=== PATIENT | male | born 1955 | race Caucasian/White ===

== ENCOUNTER 2020-01-21 09:04 | Outpatient (REF) | payer MEDICARE, MEDICAID, SELFPAY ==
[2020-01-21 11:15] LABS: MANUAL DIFF FLAG NO
[2020-01-21 11:31] LABS: Basophils Absolute Auto 0.1 X10*3/uL (0.0-0.2); Basophils Percent Auto 0.7 % (0-2); Eosinophils Absolute Auto 0.1 X10*3/uL (0.0-0.4); Eosinophils Percent Auto 1.8 % (0-4); Hematocrit 44.5 % (42-52); Hemoglobin 15.1 g/dl (14.0-18.0); Imm Gran Abs Auto 0.02 X10*3/uL (0.00-0.03); Imm Gran Pct Auto 0.3 % (0.0-0.4); Lymphocytes Absolute Auto 2.4 X10*3/uL (1.2-4.9); Mean Corpuscular HGB Conc 33.9 g/dl (31.0-36.0); Mean Corpuscular Hemoglobin 30.2 pg (27.0-33.0); Mean Platelet Volume 9.8 fL (9.4-12.4); Monocytes Absolute Auto 0.6 X10*3/uL (0.1-1.2); Monocytes Percent Auto 8.3 % (2-11); Neutrophils Absolute Auto 3.9 X10*3/uL (2.0-8.3); Neutrophils Percent Auto 54.9 % (45-73); Platelet Count 244 X10*3/uL (160-400); Red Cell Distribution Width 13.6 % (11.0-16.0); White Blood Count 7.1 X10*3/uL (4.8-10.8)
[2020-01-21 12:23] LABS: TSH reflex Free T4 0.93 mIU/mL (0.32-4.0); Vitamin D 25-OH Total 20.5 ng/mL (>30)
[2020-01-21 12:24] LABS: Alanine Aminotransferase 14 U/L (0-40); Albumin Level 4.3 g/dL (3.5-5.0); Alkaline Phosphatase 75 U/L (39-117); Anion Gap 14 (12-20); Aspartate Amino Transferase 14 U/L (5-37); Bilirubin Total 0.8 mg/dL (0.0-1.0); Blood Urea Nitrogen 14 mg/dL (9-16); Calcium 8.8 mg/dL (8.4-10.2); Carbon Dioxide 22 mmol/L (22-29); Chloride 109 mmol/L (96-108); Cholesterol 228 mg/dL; Estimated Glomerular Filt Rate > 60; Glucose Fasting 100 mg/dL (60-99); HDL Cholesterol 45 mg/dL; LDL Cholesterol Calculated 163 mg/dl; Potassium 4.4 mmol/l (3.3-5.1); Sodium 141 mmol/L (135-145); Total Protein 7.2 g/dL (6.5-8.0); Triglycerides 102 mg/dL
[2020-01-21 12:34] LABS: Folate 10.9 ng/mL (> or = 4.0); Vitamin B12 366 pg/mL (200-900)
== END 2020-01-21 09:05 | disposition home or self-care (01) ==
LOC: HO.HMGCLDS 09:04
PROVIDERS: PCP Internal Medicine; Visit Provider Internal Medicine
DX: E66.3 Overweight (principal); F41.8 Other specified anxiety disorders; Z86.19 Personal history of other infectious and parasitic diseases; Z72.0 Tobacco use
CPT/HCPCS: 36415; 80053; 80061; 82306; 82607; 82746; 84443; 85025

== ENCOUNTER 2020-04-18 09:56 | Outpatient (REF) | payer MEDICARE, MEDICAID, SELFPAY ==
[2020-04-18 12:09] LABS: Cholesterol 203 mg/dL; HDL Cholesterol 39 mg/dL; LDL Cholesterol Calculated 150 mg/dl; Triglycerides 71 mg/dL
[2020-04-18 12:17] LABS: Vitamin D 25-OH Total 56.2 ng/mL (>30)
== END 2020-04-18 09:57 | disposition home or self-care (01) ==
LOC: HO.HMGCLDS 09:56
PROVIDERS: PCP Internal Medicine; Visit Provider Internal Medicine
DX: E55.9 Vitamin D deficiency, unspecified (principal); E78.5 Hyperlipidemia, unspecified
CPT/HCPCS: 36415; 80061; 82306

== ENCOUNTER 2020-08-03 07:36 | Outpatient (REF) | payer MEDICARE, MEDICAID, SELFPAY ==
[2020-08-03 12:36] LABS: PSA,Total (Free>4and<10) 0.87 ng/mL (0.00-4.00); Vitamin D 25-OH Total 41.2 ng/mL (>30)
[2020-08-03 12:42] LABS: Cholesterol 228 mg/dL; Glucose Fasting 103 mg/dL (60-99); HDL Cholesterol 45 mg/dL; LDL Cholesterol Calculated 163 mg/dl; Triglycerides 102 mg/dL
== END 2020-08-03 07:37 | disposition home or self-care (01) ==
LOC: HO.HMGCLDS 07:36
PROVIDERS: PCP Internal Medicine; Visit Provider Internal Medicine
DX: Z12.5 Encounter for screening for malignant neoplasm of prostate (principal); E78.5 Hyperlipidemia, unspecified; R73.01 Impaired fasting glucose; Z86.39 Personal history of other endocrine, nutritional and metabolic disease
CPT/HCPCS: 36415; 80061; 82306; 82947; 84153

== ENCOUNTER 2021-02-15 09:09 | Outpatient (REF) | payer MEDICARE, MEDICAID, SELFPAY ==
[2021-02-15 11:59] LABS: Cholesterol 260 mg/dL; Triglycerides 111 mg/dL
[2021-02-15 12:38] LABS: Glucose Fasting 112 mg/dL (60-99); HDL Cholesterol 50 mg/dL; LDL Cholesterol Calculated 188 mg/dl
== END 2021-02-15 09:10 | disposition home or self-care (01) ==
LOC: HO.HMGCLDS 09:09
PROVIDERS: PCP Internal Medicine; Visit Provider Internal Medicine
DX: E78.5 Hyperlipidemia, unspecified (principal); R73.01 Impaired fasting glucose
CPT/HCPCS: 36415; 80061; 82947

== ENCOUNTER 2021-05-16 10:14 | Outpatient (REF) | payer MEDICARE, MEDICAID, SELFPAY ==
[2021-05-16 12:08] LABS: Estimated Average Glucose 105 mg/dL; Hemoglobin A1c % 5.3 %
[2021-05-16 12:37] LABS: Alanine Aminotransferase 17 U/L (0-40); Aspartate Amino Transferase 15 U/L (5-37); Cholesterol 174 mg/dL; HDL Cholesterol 43 mg/dL; LDL Cholesterol Calculated 114 mg/dl; Triglycerides 85 mg/dL
== END 2021-05-16 10:15 | disposition home or self-care (01) ==
LOC: HO.HMGCLDS 10:14
PROVIDERS: PCP Internal Medicine; Visit Provider Internal Medicine
DX: E78.5 Hyperlipidemia, unspecified (principal); R73.01 Impaired fasting glucose
CPT/HCPCS: 36415; 80061; 83036; 84450; 84460

== ENCOUNTER 2021-10-18 08:38 | Outpatient (REF) | payer MEDICARE, MEDICAID, SELFPAY ==
[2021-10-18 11:37] LABS: Estimated Average Glucose 108 mg/dL; Hemoglobin A1c % 5.4 %
[2021-10-18 12:10] LABS: Alanine Aminotransferase 19 U/L (0-40); Anion Gap 14 (12-20); Aspartate Amino Transferase 15 U/L (5-37); Blood Urea Nitrogen 9 mg/dL (9-16); Calcium 9.2 mg/dL (8.4-10.2); Carbon Dioxide 22 mmol/L (22-29); Chloride 109 mmol/L (96-108); Cholesterol 152 mg/dL; Estimated Glomerular Filt Rate > 60; Glucose Fasting 107 mg/dL (60-99); HDL Cholesterol 47 mg/dL; LDL Cholesterol Calculated 92 mg/dl; Potassium 4.2 mmol/L (3.3-5.1); Sodium 141 mmol/L (135-145); Triglycerides 66 mg/dL
== END 2021-10-18 08:39 | disposition home or self-care (01) ==
LOC: HO.HMGCLDS 08:38
PROVIDERS: PCP Internal Medicine; Visit Provider Internal Medicine
DX: E78.5 Hyperlipidemia, unspecified (principal); R73.01 Impaired fasting glucose
CPT/HCPCS: 36415; 80048; 80061; 83036; 84450; 84460

== ENCOUNTER 2021-10-26 13:00 | Outpatient (RCR) | payer MEDICARE, MEDICAID, SELFPAY | END 2021-11-02 13:43 | disposition home or self-care (01) | LOC: HO.PTCHIC 13:00 | PROVIDERS: PCP Internal Medicine; Visit Provider Student in an Organized Health Care Education/Training Program | DX: M54.16 Radiculopathy, lumbar region (principal) | CPT/HCPCS: 97014; 97110; 97112; 97140; 97162 ==

== ENCOUNTER 2022-04-10 08:58 | Outpatient (REF) | payer MEDICARE, MEDICAID, SELFPAY ==
[2022-04-10 11:53] LABS: Alanine Aminotransferase 22 U/L (0-40); Aspartate Amino Transferase 20 U/L (5-37); Cholesterol 164 mg/dL; HDL Cholesterol 42 mg/dL; LDL Cholesterol Calculated 100 mg/dl; Triglycerides 111 mg/dL
== END 2022-04-10 08:59 | disposition home or self-care (01) ==
LOC: HO.HMGCLDS 08:58
PROVIDERS: PCP Internal Medicine; Visit Provider Internal Medicine
DX: E78.5 Hyperlipidemia, unspecified (principal)
CPT/HCPCS: 36415; 80061; 84450; 84460

== ENCOUNTER 2022-10-15 08:30 | Outpatient (REF) | payer MEDICARE, MEDICAID, SELFPAY ==
[2022-10-15 11:32] LABS: Estimated Average Glucose 103 mg/dL; Hemoglobin A1c % 5.2 %
[2022-10-15 12:15] LABS: Alanine Aminotransferase 18 U/L (0-40); Aspartate Amino Transferase 18 U/L (5-37); Cholesterol 140 mg/dL; Glucose Fasting 108 mg/dL (60-99); HDL Cholesterol 39 mg/dL; LDL Cholesterol Calculated 80 mg/dl; Triglycerides 107 mg/dL
[2022-10-15 12:20] LABS: Vitamin D 25-OH Total 32.1 ng/mL (>30)
== END 2022-10-15 08:31 | disposition home or self-care (01) ==
LOC: HO.HMGCLDS 08:30
PROVIDERS: PCP Internal Medicine; Visit Provider Internal Medicine
DX: E55.9 Vitamin D deficiency, unspecified (principal); E66.3 Overweight; E78.5 Hyperlipidemia, unspecified; R73.01 Impaired fasting glucose; Z72.0 Tobacco use
CPT/HCPCS: 36415; 80061; 82306; 82947; 83036; 84450; 84460

== ENCOUNTER 2022-10-17 13:40 | Outpatient (AMB) | payer MEDICARE, MEDICAID, SELFPAY ==
--- NOTE | 2022-10-17 13:59 | MHC.PC.OV ---
Vital Signs 10/17/22 14:01 Height 6 ft 1 in Weight 225 lb BMI 29.7 BP 130/80 Blood Pressure Location Lt brachial Position Sitting Pulse 72 Pulse Source Pulse Oximeter Pulse Oximetry (%) 98 Oxygen Delivery Method Room Air Intake Visit Reasons: PE Intake Note: Patient here for Physical exam. He would like to address nails coming off nail bed and toe fungus. Allergies No Known Allergies Allergy (Verified 10/17/22 14:33) Medication List - Last Reconciled 10/17/22 by Maryellen Gregg MD gabapentin 600 mg PO TID risperidone 0 mg PO rosuvastatin 5 mg PO DAILY venlafaxine ER 37.5 mg PO BEDTIME venlafaxine ER 75 mg PO QAM Tobacco use date assessed: 04/15/22 Fall risk assessment: No Falls in past year Last assessed Fall Risk: 10/17/22 Dental Screening Dental Screen Date: 10/17/22 Did you have a dental visit in the last 12 months?: Yes Did you have a dental problem in the last 6 months where you did not have access to dental care?: No Was dental information given to patient?: Patient has dentist HPI PE HPI Details 67-year-old male with dyslipidemia, impaired fasting glucose, lumbar degenerative disc disease, depression with anxiety and current cigarette smoker, here today for physical exam. Unmotivated to quit at present time. Had recent fasting labs done which showed elevated fasting glucose at 108 mg/dL, and normal fasting lipids and vitamin-D level. He is currently being followed for his chronic low back pain with sciatica and degenerative disc disease in lumbar area at [facility] and is currently being seen at [facility] for his depression and anxiety. Continues to smoke cigarettes, with no desire to quit at present time. Complains of yellowish, thick nail beds on 4th and 5th digits and right thumb on the right, and some beginning discoloration and brittle of bilateral big toenails. [facility] Medical History (Updated 10/17/22 @ 14:54 by Maryellen Gregg MD) Chronic low back pain with sciatica Degenerative disc disease, lumbar Depression with anxiety Dyslipidemia Hx of hepatitis C Hx of type B viral hepatitis Impaired fasting glucose Nail discoloration Not ready to quit smoking Overweight Vitamin D deficiency Surgical History H/O lumbar discectomy Hx of colonoscopy Family History Father No problems noted. Mother No problems noted. Brother No problems noted. Son No problems noted. Sister Substance use disorder Mental health disorder Sister No problems noted. Social History Housing: House Alcohol intake: former Patient Tobacco Use Status: Current everyday Tobacco user Cigarette Packs Per Day: 1 e-Cigarette/Vaping Use: Never Used service: No Current occupational status: employed Cognitive needs: No Hearing needs: No Vision needs: Yes Questionnaire PHQ-9 Over the last 2 weeks, how often have you been bothered by any of the following problems? 1. Little interest or pleasure in doing things: not at all 2. Feeling down, depressed, or hopeless: not at all 3. Trouble falling or staying asleep, or sleeping too much: not at all 4. Feeling tired or having little energy: several days 5. Poor appetite or overeating: not at all 6. Feeling bad about yourself - or that you are a failure or have let yourself or your family down: not at all 7. Trouble concentrating on things, such as reading the newspaper or watching television: not at all 8. Moving or speaking so slowly that other people could have noticed. Or the opposite - being so fidgety or restless that you have been moving around a lot more than usual: not at all 9. Thoughts that you would be better off or of hurting yourself in some way: not at all Total score: 1 Depression Screening Interpretation: Positive (Goes to [facility]) Depression Screening Follow-up: Existing condition, In treatment and Community Mental Health Worker F/U 83893 - PHQ-9 Billing: Yes Source: Developed by Drs. Emanuel Mcmahon, Mirna Floyd, Florin Cervantes and colleagues, with an educational london from [employer]. Thrive Questionnaire Date Thrive assessed: 10/17/22 I am a: Patient What is your living situation today?: I have a steady place to live Within the past 12 months, did the food you bought not last and you didn't have the money to get more?: Never true Within the past 12 months, did you worry whether your food would run out before you got money to buy more?: Never true Do you have trouble paying for medicines?: No Do you have trouble getting transportation to medical appointments?: No Do you have trouble paying your heating and electricity bill?: No Do you have trouble taking care of your child, family member or friend?: No Do you have trouble with day-to-day activities such as bathing, preparing meals, shopping, managing finances, etc.?: No Are you currently unemployed and looking for a job?: No Are you interested in more education?: No AUDIT C Alcohol Use Questionnaire (AUDIT-C) 1. How often do you have a drink containing alcohol?: Never 3. How often do you have six or more drinks on one occasion?: Never Total Score: 0 DAVID-7 AMB Questionnaire DAVID-7 Date DAVID - 7 assessed: 10/17/22 Feeling nervous, anxious, or on edge: 0 = Not at all Not being able to stop or control worryin = Not at all Worrying too much about different things: 0 = Not at all Trouble relaxin = Not at all Being so restless that it is hard to sit still: 0 = Not at all Becoming easily annoyed or irritable: 0 = Not at all Feeling afraid as if something awful might happen: 0 = Not at all Total DAVID-7 score (0-4 normal; 5-9 mild; 10-14 moderate; 15-21 severe): 0 Source: Developed by Drs. Emanuel Mcmahon, Mirna Floyd, Florin Cervantes and colleagues, with an educational london from [employer]. DAVID-7 Assessment Billing DAVID-7 Assessment Tool: DAVID-7 Assessment 62527 Review of Systems Const Denies body aches, Denies fatigue, Denies fever(s), Denies headache(s) and Denies weakness Eyes Details: Currently sees Dr. Baker Denies change in vision ENT Reports Normal hearing present, Denies dizziness, Denies headache(s), Denies nasal congestion, Denies nasal discharge and Denies sore throat Card Denies chest pain, Denies lightheadedness, Denies palpitations and Denies dyspnea Resp Denies chest congestion, Denies cough, Denies excessive phlegm production, Denies dyspnea and Denies wheezing GI Denies abdominal pain, Denies melena, Denies hematochezia, Denies change in bowel habits and Denies heartburn Denies difficulty urinating, Denies erectile dysfunction, Denies genital lesions, Denies dysuria, Denies urinary frequency and Denies urinary urgency Musc Details: Currently being seen at [facility], currently on gabapentin Reports back pain (Now currently being seen by [facility], and started on gabapentin) Skin/Breast Denies lesions and Denies rash Neuro Reports Normal hearing present, Denies dizziness, Denies headache(s), Denies Sensory deficit (Neuro) and Denies weakness Psych Details: Currently being followed at [facility] Reports no additional complaints Endo Denies fatigue, Denies polydipsia, Denies polyuria and Denies palpitations Gama/Lymph Denies easy bleeding and Denies easy bruising Aller/Immun Denies wheezing Physical exam (Primary Care) Vital Signs: Last Vital Signs Pulse 72 10/17/22 14:01 BP 130/80 10/17/22 14:01 Pulse Ox 98 10/17/22 14:01 Oxygen Delivery Method Room Air 10/17/22 14:01 BMI result Body Mass Index 29.7 Tobacco/Smoking Status: Tobacco use Status Tobacco use date assessed 04/15/22 10/17/22 14:04 Patient Tobacco Use Status Current everyday Tobacco 10/17/22 14:04 e-Cigarette/Vaping Use Never Used 10/17/22 14:04 Are you ready to quit: No Tobacco cessation counseling provided: Yes PHQ-9: PHQ-9 Score PHQ-9: Total score 1 10/17/22 17:42 Depression Screening Interpretation: Positive (Goes to [facility]) Depression Screening Follow-up: Existing condition, In treatment and Community Mental Health Worker F/U Thrive Assessment: Date of Thrive Assessment Date Thrive assessed 10/17/22 10/17/22 17:42 Const General: cooperative, comfortable, no acute distress and alert Nutritional Appearance: overweight Orientation/consciousness: patient oriented x3 HENMT Head: Yes normocephalic Ears: hearing grossly normal bilaterally, external ears normal, TM's normal bilaterally and EAC's normal General nose exam: Normal external nose present Face and sinus: Yes face symmetric Mouth: Normal oral and palatal mucosa present and moist mucous membranes Eyes General: appearance normal, both eyes and all related structures Neck Neck: Yes full ROM, Yes no lymphadenopathy and Yes supple Chest Chest palpation & inspection: normal inspection of the chest and normal palpation of entire chest wall Resp Effort & Inspection: normal respiratory effort and able to speak in complete sentences Auscultation: clear to auscultation bilaterally Cardio Palpation: normal PMI Rate: regular rate Rhythm: regular rhythm Heart sounds: S1 normal heart sound present and S2 normal heart sound present GI Palpation (GI): Soft to palpation, nontender, no guarding, no masses and Other GI palpation findings present (Diastasis recti present) Auscultation: normal bowel sounds General: Yes no CVA tenderness Male General Exam: Yes normal external exam Penis: normal penis Back/Spine/Pelvis Back: no CVA tenderness Thoracic/Lumbar Spine: Lasegue's sign negative and paraspinal muscle tenderness bilaterally in the lower lumbar Skin General skin exam: no rashes or lesions noted Nails: yellow and thickened (Right thumb, and right 3rd and 4th finger nails and bilateral big toes) Neuro General: patient oriented x3, gait normal, moves all extremities, Normal light touch and pain sensation, no focal motor deficits and CN's II-XI intact bilaterally Cranial nerves: Yes Normal hearing present Gait exam (Neuro): Normal gait present Sensory Exam: No Sensory deficit (Neuro) Extrem General: Yes full ROM, Yes no joint enlargement, Yes no pedal edema, Yes no calf tenderness and Yes normal gait Psych Appearance: grossly normal and well kempt Mental Status: mental status grossly normal Speech and movement: Normal speech and movement present Affect: normal affect Attitude: cooperative Thought process: Normal thought process present Thought content: Normal thought content present Results Reviewed Results Reviewed: RUN: 10/17/22 1433 PAGE 1 [facility] [address] [place] [id number] Mining Teacher: Daniel Munoz M.D. Specimen Inquiry Name: Emanuel Mills Age/Sex: 67/M : 1955 Unit#: [id number] Attend Dr: Maryellen Gregg MD Re10/15/22 Status: DEP REF Location: [facility] Disch: SPEC : [id number] ALVERTO: 10/15/22 STATUS: COMP REQ : [id number] RECD: 10/15/22-1112 [facility] DR: Maryellen Gregg MD COMP: 10/15/22 ENTERED: 10/15/[address] [facility] [address]: ORDERED: Glu Fasting, AST, ALT, Lipid Panel, Vitamin D 25-OH Test Result Flag Reference Site FBS 108 H 60-99 mg/dL A fasting glucose from 100-125 mg/dl is considered impaired (pre-diabetes). AST (GOT) 18 5-37 U/L ALT (GPT) 18 0-40 U/L Triglyceride 107 mg/dL Desirable Triglyceride: less than 150 mg/dL Borderline High Triglyceride 150-199 mg/dL High Triglyceride: 200-499 mg/dL Very High Triglyceride: greater than or equal to 5OO mg/dL Chol 140 mg/dL Desirable Cholesterol: less than 200 mg/dL Borderline High Cholesterol: 200-239 mg/dL High Cholesterol: greater than 239 mg/dL LDL Calculated 80 mg/dl Desirable LDL: less than 100 mg/dL Near Optimal/Above Optimal LDL: 110-129 mg/dL Borderline High LDL: 130-159 mg/dL High LDL: 160-189 mg/dL Very High LDL: greater than or equal to 190 mg/dL HDL 39 mg/dL Desirable HDL: greater than 40 mg/dL Note: This HDL assay may give artificially low results in patients with liver disease. Vit D 25-OH Tot 32.1 >30 ng/mL Health Based Reference Values* < 20 ng/mL Deficient 20-30 ng/mL Insufficient > 30 ng/mL Sufficient Laboratory Tests 10/15/22 08:37 Estimat Average Glucose 103 Hemoglobin A1c % 5.2 Assessment and Plan Assessment & Plan (1) Annual visit for general adult medical examination with abnormal findings: Code(s): Z00.01 - Encounter for general adult medical examination with abnormal findings Plan: Reviewed recent fasting lab results with patient.. Recommended dental visit every 6 months and regular eye exams, at least every 2 years, sees Dr. Baker. Take adequate calcium in diet and vitamin-D 3 at 2000 IU per cap once a day, in addition to weight-bearing exercises to help maintain good muscle tone and weight control. Instructed to do self-testicular exam to check for any mass. Referred to GI his colon cancer screening. Reminded to get his COVID booster, and reminded to get his yearly flu shot, up-to-date with Tdap and Prevnar 20, recommend to get his shingles vaccine, given at the pharmacy (2) Nail discoloration: Code(s): L60.8 - Other nail disorders Plan: Referred to dermatology (3) Nail deformity: Code(s): L60.8 - Other nail disorders Plan: Rheumatology consult ordered (4) Colon cancer screening: Code(s): Z12.11 - Encounter for screening for malignant neoplasm of colon Plan: Referred to H him see GI for screening colonoscopy (5) Impaired fasting glucose: Code(s): R73.01 - Impaired fasting glucose Plan: Your fasting blood sugars elevated above 100 mg/dL. Impaired glucose metabolism O2 at risk for developing diabetes mellitus type 2, as well as heart attack and stroke later on. Lifestyle changes at just weight loss, healthy eating habits, and regular exercise are important, and can prevent the progression to diabetes (6) Chronic low back pain with sciatica: Code(s): M54.40 - Lumbago with sciatica, unspecified side; G89.29 - Other chronic pain Plan: Followed at [facility] currently on gabapentin 600 mg 3 times a day (7) Dyslipidemia: Code(s): E78.5 - Hyperlipidemia, unspecified Plan: Reviewed recent fasting lipid profile with patient with levels within normal limits . Continue with rosuvastatin 5 mg daily , in addition to adherence to low-cholesterol diet and regular exercise, at least 30 minutes 3 to 4 times a week. Advised patient to make healthy food choices, eat more fruits, vegetables, whole grains, wild caught fish and low-fat dairy. Limit amount of meat and fried or fatty food products, as well as processed foods and fast foods. Follow-up scheduled with repeat fasting lipid panel in months. (8) Not ready to quit smoking: Code(s): Z72.0 - Tobacco use Plan: Patient strongly advised to stop smoking, as smoking damages blood vessels, degenerative of joints and spine, damage to lungs and heart., predisposes to developing certain cancers like lung, breast, bladder, colon. Recommended to try decreasing cigarette use by 1-2 cigarettes a day. Advised to monitor what triggers are for smoking so that this can be discussed on the next office visit. We can discuss different options to quit smoking when ready. (9) Depression with anxiety: Comment: Currently being seen by [facility] Code(s): F41.8 - Other specified anxiety disorders Plan: Currently on venlafaxine ER 37.5 mg at bedtime and then 75 mg in a.m., and risperidone, currently being followed at [facility] Orders: Orders Alanine Aminotransferase 6 Months E78.5 - Hyperlipidemia, unspecified, R73.01 - Impaired fasting glucose Aspartate Amino Transferase 6 Months E78.5 - Hyperlipidemia, unspecified, R73.01 - Impaired fasting glucose Glucose Fasting 6 Months E78.5 - Hyperlipidemia, unspecified, R73.01 - Impaired fasting glucose Hemoglobin A1c 6 Months E78.5 - Hyperlipidemia, unspecified, R73.01 - Impaired fasting glucose Lipid Panel 6 Months E78.5 - Hyperlipidemia, unspecified, R73.01 - Impaired fasting glucose Referrals Dermatology Referral L60.8 - Other nail disorders Gastroenterology Referral Z12.11 - Encounter for screening for malignant neoplasm of colon Coding Level of Care Code Est Pt Prev Care >65y(26228) Diagnoses Annual visit for general adult medical examination with abnormal findings Z00.01 Nail discoloration L60.8 Nail deformity L60.8 Colon cancer screening Z12.11 Impaired fasting glucose R73.01 Chronic low back pain with sciatica M54.40; G89.29 Dyslipidemia E78.5 Not ready to quit smoking Z72.0 Depression with anxiety F41.8 Additional Codes DAVID-7 Assessment Billing - DAVID-7 Assessment Tool: DAVID-7 Assessment 06279 ([id number])
[2022-10-17 14:01] VITALS: BP 130/80; PULSE 72; O2SAT 98; BMI 29.7
== END 2022-10-17 15:13 | disposition home or self-care (01) ==
LOC: HO.HMGC 13:40
PROVIDERS: PCP Internal Medicine; Visit Provider Internal Medicine
DX: Z00.01 Encounter for general adult medical examination with abnormal findings (principal); F41.8 Other specified anxiety disorders; Z12.11 Encounter for screening for malignant neoplasm of colon; L60.8 Other nail disorders; R73.01 Impaired fasting glucose; M54.40 Lumbago with sciatica, unspecified side; G89.29 Other chronic pain; E78.5 Hyperlipidemia, unspecified; Z72.0 Tobacco use
CPT/HCPCS: 99397

== ENCOUNTER 2022-12-12 09:48 | Outpatient (AMB) | payer BC, MEDICAID, SELFPAY ==
--- NOTE | 2022-12-12 09:56 | MHC.OFFVIS ---
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 male here today for pre colonoscopy screening.? Patient was sent to us by his PCP.? Patient had colonoscopy in the past, over 10 years ago. As far as patient remember it was normal. No polyps found.? Patient denies any gastrointestinal symptoms in the past or at present.? Denies any personal or family history of gastrointestinal disease, colon polyps, or cancer.? Denies history of difficulty with sedation or anesthesia in the past.? Negative for history of sleep apnea.? Denies any history of cardiac, renal, pulmonary, or hepatic disease.?? History of hep C treated with interferon in 1997. No history of infectious? diseases like hepatitis A, B, HIV or tuberculosis.? Patient is not on any anticoagulation therapy. [facility] Medical History Nail discoloration Chronic low back pain with sciatica Hx of type B viral hepatitis Impaired fasting glucose Dyslipidemia Vitamin D deficiency Degenerative disc disease, lumbar Hx of hepatitis C Overweight Not ready to quit smoking Depression with anxiety Surgical History Hx of colonoscopy H/O lumbar discectomy Family History Father No problems noted. Mother No problems noted. Brother No problems noted. Son No problems noted. Sister Substance use disorder Mental health disorder Sister No problems noted. Social History Housing: House Alcohol intake: former Patient Tobacco Use Status: Current everyday Tobacco user Cigarette Packs Per Day: 1 e-Cigarette/Vaping Use: Never Used service: No Current occupational status: employed Cognitive needs: No Hearing needs: No Vision needs: Yes Review of Systems Const Denies weight gain and Denies weight loss ENT Reports no additional complaints, Denies dysphagia and Denies odynophagia Card Reports no additional complaints Resp Reports no additional complaints GI Denies abdominal pain, Denies belching, Denies melena, Denies bloating, Denies change in bowel habits, Denies dysphagia, Denies excessive flatus, Denies dyspepsia, Denies heartburn, Denies diarrhea, Denies loose stools, Denies nausea, Denies odynophagia and Denies vomiting Reports no additional complaints Musc Reports no additional complaints Neuro Reports no additional complaints Psych Reports no additional complaints Endo Reports no additional complaints Physical Exam Vital Signs: Last Vital Signs Pulse 84 12/12/22 09:57 BP 140/82 H 12/12/22 09:57 BMI result Body Mass Index 29.1 Const General: healthy appearing, no acute distress and well developed Nutritional Appearance: obese Orientation/consciousness: patient oriented x3 HEENT Head: Yes normal to inspection, Yes normocephalic and Yes atraumatic Face and sinus: Yes normal facial exam Mouth: Normal oral and palatal mucosa present Throat: Yes posterior oropharynx normal, Yes tonsils normal and Yes uvula midline Eyes General: appearance normal, both eyes and all related structures Neck Neck: Yes normal visual inspection, Yes full ROM and Yes trachea midline Thyroid: Thyroid normal Resp Effort & Inspection: normal respiratory effort, able to speak in complete sentences, no tracheal deviation and symmetric chest movement Auscultation: clear to auscultation bilaterally Cardio Rate: regular rate Heart sounds: S1 normal heart sound present and S2 normal heart sound present GI Inspection: Yes normal to inspection, No distended and Yes obesity Palpation (GI): Soft to palpation, not firm, nontender and No hepatosplenomegaly present Auscultation: normal bowel sounds General: Yes no CVA tenderness Back/Spine/Pelvis Back: no CVA tenderness Skin General skin exam: elasticity normal, turgor normal and dry skin Neuro General: patient oriented x3 Psych Appearance: grossly normal Mental Status: mental status grossly normal Assessment & Plan Assessment & Plan (1) Colon cancer screening: Code(s): Z12.11 - Encounter for screening for malignant neoplasm of colon Plan: Patient denies any GI, cardiac or respiratory symptoms.? Denies any issues with anesthesia in the past.? Denies any history of sleep apnea.? History of hep C treated with interferon in 1997.? Not on any anticoagulation therapy.? No family or personal history of colon cancer or polyps.? Patient denies melena, hematochezia, unintentional weight loss or ribbon like stools.? Discussed at length the pre-procedure,? prep, diet & medications as well as what to expect prior, during and after the procedure.?? Stressed the importance of good bowel prep. ?Recommended the use of Vaseline or Calmoseptine OTC & baby wipes with bowel movements to promote comfort.? ?Patient verbalizes understanding and agrees to plan of care.? He was given the opportunity to ask questions and all questions answered.? We will see him after the procedure.? Orders: Orders Complete Blood Count no Diff Today K21.9 - Gastro-esophageal reflux disease without esophagitis Medications: New polyethylene glycol 3350 (Miralax) As directed by gastroenterology department at [facility] 238 grams PO ONCE 238 grams 0RF Z12.11 - Encounter for screening for malignant neoplasm of colon bisacodyl (Dulcolax (bisacodyl)) take 4 tabs at noon the day before your colonoscopy 20 mg (4 x 5 mg) PO ONCE 1 day 4 tabs 0RF Z12.11 - Encounter for screening for malignant neoplasm of colon Coding Level of Care Code New Pt Level 3 (97336) Diagnoses Colon cancer screening Z12.11 Time Spent (min) 40 Comment 30 minutes spent with patient and additional 10 minutes spent reviewing his records
[2022-12-12 09:57] VITALS: BP 140/82; PULSE 84; BMI 29.1
== END 2022-12-12 11:45 | disposition home or self-care (01) ==
PROVIDERS: PCP Internal Medicine; Visit Provider Nurse Practitioner Family
DX: Z01.818 Encounter for other preprocedural examination (principal); Z12.11 Encounter for screening for malignant neoplasm of colon
CPT/HCPCS: S0285

== ENCOUNTER 2022-12-12 09:48 | Outpatient (REF) | payer MEDICARE, SELFPAY ==
[2022-12-12 11:53] LABS: Hematocrit 43.8 % (42.0-52.0); Hemoglobin 14.7 g/dl (14.0-18.0); Mean Corpuscular HGB Conc 33.6 g/dl (31.0-36.0); Mean Corpuscular Hemoglobin 29.9 pg (27.0-33.0); Mean Corpuscular Volume 89.2 fL (80.0-98.0); Mean Platelet Volume 10.4 fL (9.4-12.4); Platelet Count 262 X10*3/uL (160-400); Red Blood Count 4.91 X10*6/uL (4.60-5.80); Red Cell Distribution Width 13.7 % (11.0-16.0); White Blood Count 5.7 X10*3/uL (4.8-10.8)
== END 2022-12-12 09:49 | disposition home or self-care (01) ==
LOC: HO.LAB 09:48
PROVIDERS: PCP Internal Medicine; Visit Provider Nurse Practitioner Family
DX: Z01.818 Encounter for other preprocedural examination (principal); K21.9 Gastro-esophageal reflux disease without esophagitis; Z86.19 Personal history of other infectious and parasitic diseases
CPT/HCPCS: 36415; 85027

== ENCOUNTER 2023-04-22 06:08 | Outpatient (REF) | payer MEDICARE, SELFPAY ==
[2023-04-22 11:42] LABS: Estimated Average Glucose 103 mg/dL; Hemoglobin A1c % 5.2 % (<6.0)
[2023-04-22 12:06] LABS: Alanine Aminotransferase 18 U/L (0-40); Aspartate Amino Transferase 15 U/L (5-37); Cholesterol 161 mg/dL (<200); Glucose Fasting 102 mg/dL (60-99); HDL Cholesterol 56 mg/dL (>40)
[2023-04-22 12:45] LABS: LDL Cholesterol Calculated 92 mg/dL (<100); Triglycerides 66 mg/dL (<150)
== END 2023-04-22 06:09 | disposition home or self-care (01) ==
LOC: HO.HMGCLDS 06:08
PROVIDERS: PCP Internal Medicine; Visit Provider Internal Medicine
DX: R73.01 Impaired fasting glucose (principal); E78.5 Hyperlipidemia, unspecified
CPT/HCPCS: 36415; 80061; 82947; 83036; 84450; 84460

== ENCOUNTER 2023-04-24 10:25 | Outpatient (AMB) | payer MEDICARE, SELFPAY ==
--- NOTE | 2023-04-24 10:31 | A.OFFPC_ITS ---
Vital Signs 04/24/23 10:32 Height 6 ft 1 in Weight 221 lb BMI 29.2 BP 112/72 Blood Pressure Location Rt brachial Position Sitting Pulse 79 Pulse Source Pulse Oximeter Pulse Oximetry (%) 97 Oxygen Delivery Method Room Air Intake Visit Reasons: 6 mo. f/u labs Intake Note: Pt is here today for his 6 months f/u labs Allergies No Known Allergies Allergy (Verified 04/24/23 11:01) Medication List - Last Reconciled 04/24/23 by Maryellen Gregg MD bisacodyl (Dulcolax (bisacodyl)) 20 mg (4 x 5 mg) PO ONCE 1 day gabapentin 600 mg PO TID polyethylene glycol 3350 (Miralax) 238 grams PO ONCE risperidone 0 mg PO rosuvastatin 5 mg PO DAILY venlafaxine ER 37.5 mg PO BEDTIME venlafaxine ER 75 mg PO QAM Tobacco use date assessed: 04/24/23 Fall risk assessment: No Falls in past year Last assessed Fall Risk: 04/24/23 Dental Screening Dental Screen Date: 04/24/23 Did you have a dental visit in the last 12 months?: Yes Did you have a dental problem in the last 6 months where you did not have access to dental care?: Yes Was dental information given to patient?: Patient has dentist HPI 6 mo. f/u labs HPI Details 67-year-old male with history of depress ion with anxiety followed at [facility], here today for follow-up on his hyperlipidemia and prediabetes. He has been compliant with taking his medications, and has been more active, exercises regularly and has been following recommended diet. Recent fasting labs showed mildly elevated fasting glucose with normal lipids. He also has been having intermittent episodes of urinary frequency and urgency, with frequently getting up at night to use the bathroom at least twice . Denies any accompanying penile discharge, no dysuria no back or abdominal pain reported [facility] Medical History (Updated 04/24/23 @ 11:06 by Maryellen Gregg MD) Urinary incontinence, urge Nail discoloration Chronic low back pain with sciatica Hx of type B viral hepatitis Impaired fasting glucose Dyslipidemia Vitamin D deficiency Degenerative disc disease, lumbar Hx of hepatitis C Overweight Not ready to quit smoking Depression with anxiety Surgical History Hx of colonoscopy H/O lumbar discectomy Family History Father No problems noted. Mother No problems noted. Brother No problems noted. Son No problems noted. Sister Substance use disorder Mental health disorder Sister No problems noted. Social History Housing: House Alcohol intake: former Patient Tobacco Use Status: Current everyday Tobacco user Cigarette Packs Per Day: 1 e-Cigarette/Vaping Use: Never Used service: No Current occupational status: employed Cognitive needs: No Hearing needs: No Vision needs: Yes Questionnaire PHQ-9 Over the last 2 weeks, how often have you been bothered by any of the following problems? 1. Little interest or pleasure in doing things: not at all 2. Feeling down, depressed, or hopeless: several days 3. Trouble falling or staying asleep, or sleeping too much: not at all 4. Feeling tired or having little energy: several days 5. Poor appetite or overeating: several days 6. Feeling bad about yourself - or that you are a failure or have let yourself or your family down: not at all 7. Trouble concentrating on things, such as reading the newspaper or watching television: not at all 8. Moving or speaking so slowly that other people could have noticed. Or the opposite - being so fidgety or restless that you have been moving around a lot more than usual: not at all 9. Thoughts that you would be better off or of hurting yourself in some way: not at all Total score: 3 Depression Screening Interpretation: Positive (Goes to [facility]) Depression Screening Follow-up: Existing condition, In treatment and Community Mental Health Worker F/U Depression Screening Done: Yes Source: Developed by Drs. Emanuel Mcmahon, Mirna Floyd, Florin Cervantes and colleagues, with an educational london from [employer]. Thrive Questionnaire Date Thrive assessed: 04/24/23 I am a: Patient What is your living situation today?: I have a steady place to live Within the past 12 months, did the food you bought not last and you didn't have the money to get more?: Never true Within the past 12 months, did you worry whether your food would run out before you got money to buy more?: Never true Do you have trouble paying for medicines?: No Do you have trouble getting transportation to medical appointments?: No Do you have trouble paying your heating and electricity bill?: No Do you have trouble taking care of your child, family member or friend?: No Do you have trouble with day-to-day activities such as bathing, preparing meals, shopping, managing finances, etc.?: No Are you currently unemployed and looking for a job?: No Are you interested in more education?: No THRIVE Score: 0 AUDIT C Alcohol Use Questionnaire (AUDIT-C) 1. How often do you have a drink containing alcohol?: Never Total Score: 0 DAVID-7 AMB Questionnaire DAVID-7 Date DAVID - 7 assessed: 04/24/23 Feeling nervous, anxious, or on edge: 1 = Several days Not being able to stop or control worryin = Several days Worrying too much about different things: 1 = Several days Trouble relaxin = Not at all Being so restless that it is hard to sit still: 0 = Not at all Becoming easily annoyed or irritable: 0 = Not at all Feeling afraid as if something awful might happen: 0 = Not at all Total DAVID-7 score (0-4 normal; 5-9 mild; 10-14 moderate; 15-21 severe): 3 Source: Developed by Drs. Emanuel Mcmahon, Mirna Floyd, Florin Cervantes and colleagues, with an educational london from [employer]. Review of Systems Const Denies body aches, Denies fatigue, Denies fever(s), Denies headache(s) and Denies weakness Eyes Details: Currently sees Dr. Baker Denies change in vision ENT Reports Normal hearing present, Denies dizziness, Denies headache(s), Denies nasal congestion, Denies nasal discharge and Denies sore throat Card Denies chest pain, Denies lightheadedness, Denies palpitations and Denies dyspnea Resp Denies chest congestion, Denies cough, Denies excessive phlegm production, Denies dyspnea and Denies wheezing GI Denies abdominal pain, Denies melena, Denies hematochezia, Denies change in bowel habits and Denies heartburn Denies difficulty urinating, Denies erectile dysfunction, Denies genital lesions and Denies dysuria Musc Details: Currently being seen at [facility], currently on gabapentin Reports back pain (Now currently being seen by [facility], and started on gabapentin) Skin/Breast Denies lesions and Denies rash Neuro Reports Normal hearing present, Denies dizziness, Denies headache(s), Denies Sensory deficit (Neuro) and Denies weakness Psych Details: Currently being followed at [facility] Reports no additional complaints Endo Denies fatigue, Denies polydipsia, Denies polyuria and Denies palpitations Gama/Lymph Denies easy bleeding and Denies easy bruising Aller/Immun Denies wheezing Physical exam (Primary Care) Vital Signs: Last Vital Signs Pulse 79 04/24/23 10:32 BP 112/72 04/24/23 10:32 Pulse Ox 97 04/24/23 10:32 Oxygen Delivery Method Room Air 04/24/23 10:32 BMI result Body Mass Index 29.2 Tobacco/Smoking Status: Tobacco use Status Tobacco use date assessed 04/24/23 04/24/23 10:36 Patient Tobacco Use Status Current everyday Tobacco 04/24/23 10:32 e-Cigarette/Vaping Use Never Used 04/24/23 10:32 Are you ready to quit: No Tobacco cessation counseling provided: Yes PHQ-9: PHQ-9 Score PHQ-9: Total score 3 04/24/23 11:11 Depression Screening Interpretation: Positive (Goes to [facility]) Depression Screening Follow-up: Existing condition, In treatment and Community Mental Health Worker F/U Thrive Assessment: Date of Thrive Assessment Date Thrive assessed 04/24/23 04/24/23 11:11 Const General: cooperative, comfortable, no acute distress and alert Nutritional Appearance: overweight Orientation/consciousness: patient oriented x3 HENMT Head: Yes normocephalic Ears: hearing grossly normal bilaterally, external ears normal, TM's normal bilaterally and EAC's normal General nose exam: Normal external nose present Face and sinus: Yes face symmetric Mouth: Normal oral and palatal mucosa present and moist mucous membranes Eyes General: appearance normal, both eyes and all related structures Neck Neck: Yes full ROM, Yes no lymphadenopathy and Yes supple Chest Chest palpation & inspection: normal inspection of the chest and normal palpation of entire chest wall Resp Effort & Inspection: normal respiratory effort and able to speak in complete sentences Auscultation: clear to auscultation bilaterally Cardio Palpation: normal PMI Rate: regular rate Rhythm: regular rhythm Heart sounds: S1 normal heart sound present and S2 normal heart sound present GI Palpation (GI): Soft to palpation, nontender, no guarding, no masses and Other GI palpation findings present (Diastasis recti present) Auscultation: normal bowel sounds General: Yes no CVA tenderness Back/Spine/Pelvis Back: no CVA tenderness Thoracic/Lumbar Spine: Lasegue's sign negative and paraspinal muscle tenderness bilaterally in the lower lumbar Neuro General: patient oriented x3, gait normal, moves all extremities, Normal light touch and pain sensation, no focal motor deficits and CN's II-XI intact bilaterally Cranial nerves: Yes Normal hearing present Gait exam (Neuro): Normal gait present Sensory Exam: No Sensory deficit (Neuro) Extrem General: Yes full ROM, Yes no joint enlargement, Yes no pedal edema, Yes no calf tenderness and Yes normal gait Psych Appearance: grossly normal and well kempt Mental Status: mental status grossly normal Speech and movement: Normal speech and movement present Affect: normal affect Attitude: cooperative Thought process: Normal thought process present Thought content: Normal thought content present Results Reviewed Results Reviewed: RUN: 04/24/23 1053 PAGE 1 [facility] [address] [place] [id number] Hydrology Technician: Daniel Munoz M.D. Specimen Inquiry Name: Emanuel Mills Age/Sex: 67/M : 1955 Unit#: [id number] Attend Dr: Maryellen Gregg MD Re04/22/23 Status: DEP REF Location: [facility] Disch: SPEC : [id number] ALVERTO: 04/22/23 STATUS: COMP REQ : [id number] RECD: 04/22/23-[address]: Maryellen Gregg MD COMP: 04/22/231206 ENTERED: 04/22/[address] [facility] [address]: ORDERED: Glu Fasting, AST, ALT, Lipid Panel Test Result Flag Reference FBS 102 H 60-99 mg/dL A fasting glucose from 100-125 mg/dl is considered impaired (pre-diabetes). AST (GOT) 15 5-37 U/L ALT (GPT) 18 0-40 U/L Triglyceride 66 <150 mg/dL Desirable Triglyceride: less than 150 mg/dL Borderline High Triglyceride 150-199 mg/dL High Triglyceride: 200-499 mg/dL Very High Triglyceride: greater than or equal to 5OO mg/dL Cholesterol 161 <200 mg/dL Desirable Cholesterol: less than 200 mg/dL Borderline High Cholesterol: 200-239 mg/dL High Cholesterol: greater than 239 mg/dL LDL Calculated 92 <100 mg/dL Desirable LDL: less than 100 mg/dL Near Optimal/Above Optimal LDL: 110-129 mg/dL Borderline High LDL: 130-159 mg/dL High LDL: 160-189 mg/dL Very High LDL: greater than or equal to 190 mg/dL HDL 56 >40 mg/dL Desirable HDL: greater than 40 mg/dL Note: This HDL assay may give artificially low results in patients with liver disease. Assessment and Plan Assessment & Plan (1) Urinary incontinence, urge: Code(s): N39.41 - Urge incontinence Plan: Ordered total PSA and basic metabolic panel and a urinalysis with refill lacks urine culture and microbiology (2) Urinary frequency: Code(s): R35.0 - Frequency of micturition Plan: Ordered total PSA and basic metabolic panel and a urinalysis with refill lacks urine culture and microbiology, with results still pending (3) Dyslipidemia: Code(s): E78.5 - Hyperlipidemia, unspecified Plan: Reviewed recent fasting lipid profile with patient with levels within normal limits . Continue taking rosuvastatin 5 mg once a day , in addition to adherence to low-cholesterol diet and regular exercise, at least 30 minutes 3 to 4 times a week. Advised patient to make healthy food choices, eat more fruits, vegetables, whole grains, wild caught fish and low-fat dairy. Limit amount of meat and fried or fatty food products, as well as processed foods and fast foods. Follow-up scheduled with repeat fasting lipid panel in 6 months. (4) Impaired fasting glucose: Code(s): R73.01 - Impaired fasting glucose Plan: Your fasting blood sugars elevated above 100 mg/dL. Impaired glucose metabolism O2 at risk for developing diabetes mellitus type 2, as well as heart attack and stroke later on. Lifestyle changes at just weight loss, healthy eating habits, and regular exercise are important, and can prevent the progression to diabetes (5) Depression with anxiety: Comment: Currently being seen by Aline Ying Code(s): F41.8 - Other specified anxiety disorders Plan: Followed at [facility], stable and controlled on venlafaxine ER and risperidone Orders: Orders PSA,Total (Free>4and<10) Today N39.41 - Urge incontinence, R35.0 - Frequency of micturition Basic Metabolic Panel Fasting Today N39.41 - Urge incontinence, R35.0 - Freq uency of micturition UA CC w/rflx Micro + Cult Today N39.41 - Urge incontinence, R35.0 - Frequency of micturition Coding Level of Care Code Est Pt Level 3 (42376) Diagnoses Urinary incontinence, urge N39.41 Urinary frequency R35.0 Dyslipidemia E78.5 Impaired fasting glucose R73.01 Depression with anxiety F41.8
[2023-04-24 10:32] VITALS: BP 112/72; PULSE 79; O2SAT 97; BMI 29.2
== END 2023-04-24 11:58 | disposition home or self-care (01) ==
PROVIDERS: PCP Internal Medicine; Visit Provider Internal Medicine
DX: N39.41 Urge incontinence (principal); R35.0 Frequency of micturition; E78.5 Hyperlipidemia, unspecified; R73.01 Impaired fasting glucose; F41.8 Other specified anxiety disorders
CPT/HCPCS: 99213

== ENCOUNTER 2023-04-24 11:10 | Outpatient (REF) | payer MEDICARE, SELFPAY ==
[2023-04-24 13:36] LABS: Anion Gap 13 (12-20); Blood Urea Nitrogen 12 mg/dL (9-16); Calcium 9.9 mg/dL (8.4-10.2); Carbon Dioxide 26 mmol/L (22-29); Chloride 107 mmol/L (96-108); Estimated Glomerular Filt Rate > 60; Glucose Fasting 103 mg/dL (60-99); Potassium 4.8 mmol/L (3.3-5.1); Sodium 141 mmol/L (135-145)
[2023-04-24 13:54] LABS: PSA,Total (Free>4and<10) 0.84 ng/mL (0.00-4.00)
[2023-04-24 16:01] LABS: Appearance Urine Cloudy; Color Urine Yellow; Glucose Urine UA Negative (Negative); Leukocyte Esterase Urine Negative (Negative); Nitrite Urine Negative (Negative); PH 5.5 (5.0-9.0); Urine Blood Negative (Negative); Urine Ketones Negative (Negative); Urine Protein Negative (Neg-Trace)
== END 2023-04-24 11:11 | disposition home or self-care (01) ==
LOC: HO.HMGCLDS 11:10
PROVIDERS: PCP Internal Medicine; Visit Provider Internal Medicine
DX: Z12.5 Encounter for screening for malignant neoplasm of prostate (principal); N39.41 Urge incontinence; R35.0 Frequency of micturition
CPT/HCPCS: 36415; 80048; 81003; 84153

== ENCOUNTER 2023-05-13 13:55 | Outpatient (AMB) | payer MEDICARE, SELFPAY ==
[2023-05-13 13:59] VITALS: BP 124/85; PULSE 100; BMI 28.6
--- NOTE | 2023-05-13 13:59 | A.OFFVIS_ITS ---
Intake Vital Signs 05/13/23 13:59 Height 6 ft 1 in Weight 216 lb 14.958 oz BMI 28.6 BP 124/85 Blood Pressure Location Lt brachial Position Sitting Pulse 100 Pulse Source Pulse Oximeter Intake Visit Reasons: patient wants appt to discuss prep Intake Note: Pt presents to the office today to rediscuss colo prep. Pt states he attempted to take the miralax and dulcolax for his prior colo but he states he threw up everything that he drank and was really bloated and was sick for the night and the enxt day after taking the prep. Allergies No Known Allergies Allergy (Verified 05/13/23 14:01) HPI patient wants appt to discuss prep HPI Details LAST VISIT Colon cancer screening Patient denies any GI, cardiac or respiratory symptoms.? Denies any issues with anesthesia in the past.? Denies any history of sleep apnea.? History of hep C treated with interferon in 1997.? Not on any anticoagulation therapy.? No family or personal history of colon cancer or polyps.? Patient denies melena, hematochezia, unintentional weight loss or ribbon like stools.? Discussed at length the pre-procedure,? prep, diet & medications as well as what to expect prior, during and after the procedure.?? Stressed the importance of good bowel prep. ?Recommended the use of Vaseline or Calmoseptine OTC & baby wipes with bowel movements to promote comfort.? ?Patient verbalizes understanding and agrees to plan of care.? He was given the opportunity to ask questions and all questions answered.? We will see him after the procedure.? Plan Orders Orders Complete Blood Count no Diff Today K21.9 Medications New polyethylene glycol 3350 (Miralax) As directed by gastroenterology department at [facility] 238 grams PO ONCE 238 grams 0RF Z12.11 bisacodyl (Dulcolax (bisacodyl)) take 4 tabs at noon the day before your colonoscopy 20 mg (4 x 5 mg) PO ONCE 1 day 4 tabs 0R F Z12.11 TODAY'S VISIT Patient is here today for requested visit. Patient was scheduled for colonoscopy back in April. While he was doing his prep day before procedure he tolerate Dulcolax well, however when he started drinking MiraLax he felt very nauseous and bloated to the point that he finished all of his drink and began throwing up in the middle of the night. Patient had cancel his procedure. Procedure is rescheduled for July. Patient admits now that he is constipated. Does not empty his bowels every day. Sometimes no BM for 2 days. Patient denies melena, hematochezia, unintentional weight loss or ribbon like stools. Patient denies any dyspepsia, dysphagia or odynophagia. No change since last visit. Patient continues to have no respiratory or cardiac symptoms. Not taking any anticoagulation medication. [facility] Medical History Urinary incontinence, urge Nail discoloration Chronic low back pain with sciatica Hx of type B viral hepatitis Impaired fasting glucose Dyslipidemia Vitamin D deficiency Degenerative disc disease, lumbar Hx of hepatitis C Overweight Not ready to quit smoking Depression with anxiety Surgical History Hx of colonoscopy H/O lumbar discectomy Family History Father No problems noted. Mother No problems noted. Brother No problems noted. Son No problems noted. Sister Substance use disorder Mental health disorder Sister No problems noted. Social History Housing: House Alcohol intake: former Patient Tobacco Use Status: Current everyday Tobacco user Cigarette Packs Per Day: 1 e-Cigarette/Vaping Use: Never Used service: No Current occupational status: employed Cognitive needs: No Hearing needs: No Vision needs: Yes Review of Systems Const Denies weight gain and Denies weight loss ENT Reports no additional complaints, Denies dysphagia and Denies odynophagia Card Reports no additional complaints Resp Reports no additional complaints GI Denies abdominal pain, Denies belching, Denies melena, Denies bloating, Reports constipation, Denies dysphagia, Denies excessive flatus, Denies dyspepsia, Denies heartburn, Denies diarrhea, Denies loose stools, Denies nausea, Denies odynophagia and Denies vomiting Reports no additional complaints Musc Reports no additional complaints Neuro Reports no additional complaints Psych Reports no additional complaints Endo Reports no additional complaints Physical Exam Vital Signs: Last Vital Signs Pulse 100 05/13/23 13:59 BP 124/85 05/13/23 13:59 BMI result Body Mass Index 28.6 Const General: healthy appearing, no acute distress and well developed Nutritional Appearance: well nourished and obese Orientation/consciousness: patient oriented x3 Resp Effort & Inspection: normal respiratory effort, able to speak in complete sentences, no tracheal deviation and symmetric chest movement Auscultation: clear to auscultation bilaterally Cardio Rate: regular rate GI Inspection: Yes normal to inspection, No distended and Yes obesity Palpation (GI): Soft to palpation, not firm, nontender and No hepatosplenomegaly present Auscultation: normal bowel sounds General: Yes no CVA tenderness Back/Spine/Pelvis Back: no CVA tenderness Skin General skin exam: elasticity normal, turgor normal and dry skin Neuro General: patient oriented x3 Psych Appearance: grossly normal Mental Status: mental status grossly normal Assessment & Plan Assessment & Plan (1) Colon cancer screening: Code(s): Z12.11 - Encounter for screening for malignant neoplasm of colon (2) Constipation: Code(s): K59.00 - Constipation, unspecified Qualifiers: Constipation type: slow transit constipation Qualified Code(s): K59.01 - Slow transit constipation Plan What to expect before during and after procedure discussed with patient. Patient will start taking Dulcolax tablets every day so he can emptying his bowels daily. My suspicion is that he was constipated and backed up when he was doing his prep and unable to handle all the fluids. He will still do the split MiraLax prep and makes it in vitamin water versus orange juice like he did last time. I will see patient after the procedure, sooner on as needed basis. Patient is agreeable to this plan and verbalizes understanding of instructions. He was given the opportunity to ask questions and all questions answered. Thank you for allowing me to participate in his care Medications: New bisacodyl (Dulcolax (bisacodyl)) 10 mg (2 x 5 mg) PO BEDTIME 180 tabs 4RF polyethylene glycol 3350 (Miralax) As directed by gastroenterology department at [facility] 238 grams PO ONCE 238 grams 0RF Z12.11 - Encounter for screening for malignant neoplasm of colon Coding Level of Care Code Est Pt Level 3 (76380) Diagnoses Colon cancer screening Z12.11 Slow transit constipation K59.01 Constipation type: slow transit constipation Time Spent (min) 25 Comment 15 minutes spent with patient and additional 10 minutes spent reviewing his records
== END 2023-05-13 14:52 | disposition home or self-care (01) ==
PROVIDERS: PCP Internal Medicine; Visit Provider Nurse Practitioner Family
DX: Z12.11 Encounter for screening for malignant neoplasm of colon (principal); K59.01 Slow transit constipation
CPT/HCPCS: 99213

== ENCOUNTER → 2023-05-13 13:55 | Outpatient (BNVA) | payer MEDICARE, SELFPAY | PROVIDERS: PCP Internal Medicine; Visit Provider Nurse Practitioner Family | DX: Z12.11 Encounter for screening for malignant neoplasm of colon (principal); K59.01 Slow transit constipation | CPT/HCPCS: 99212 ==

== ENCOUNTER → 2023-07-11 16:14 | Outpatient (AMB) | payer MEDICARE, MEDICAID, SELFPAY ==
--- NOTE | 2023-07-11 16:15 | AM.OFFWIN_ITS ---
Intake Vital Signs 07/11/23 16:18 Height 6 ft 1 in Weight 218 lb BMI 28.8 BP 120/82 Blood Pressure Location Lt brachial Position Sitting Pulse 88 Pulse Source Pulse Oximeter Temp 97.4 F Temp Source Oral Pulse Oximetry (%) 97 Oxygen Delivery Method Room Air Intake Visit Reasons: EST/possible uti(lobby) Intake Note: Pt presents to the office today for c/o possible UTI. Pt states his symptoms started about 2 months ago and states he has been having trouble urinating. Patient Tobacco Use Status: Current everyday Tobacco user Allergies No Known Allergies Allergy (Verified 07/11/23 16:20) HPI HPI Comments History of Present Illness Details 68 y/o male patient who presents to walk in clinic with c/o Urinary symptoms x 2 months. Pt reports inability to fully empty his Bladder. Reports symptoms such as Urinary hesitancy, Urgency, feeling of incomplete bladder emptying. Pt has an upcoming scheduled appointment in August with Urologist. [facility] Medical History (Updated 07/11/23 @ 16:40 by Rajni El NP) Urinary hesitancy due to benign prostatic hyperplasia Urinary incontinence, urge Nail discoloration Chronic low back pain with sciatica Hx of type B viral hepatitis Impaired fasting glucose Dyslipidemia Vitamin D deficiency Degenerative disc disease, lumbar Hx of hepatitis C Overweight Not ready to quit smoking Depression with anxiety Surgical History Hx of colonoscopy H/O lumbar discectomy Family History Father No problems noted. Mother No problems noted. Brother No problems noted. Son No problems noted. Sister Substance use disorder Mental health disorder Sister No problems noted. Social History Housing: House Alcohol intake: former Patient Tobacco Use Status: Current everyday Tobacco user Cigarette Packs Per Day: 1 e-Cigarette/Vaping Use: Never Used service: No Current occupational status: employed Cognitive needs: No Hearing needs: No Vision needs: Yes Physical Exam Vital Signs: Last Vital Signs Temp 97.4 F 07/11/23 16:18 Pulse 88 07/11/23 16:18 BP 120/82 07/11/23 16:18 Pulse Ox 97 07/11/23 16:18 Oxygen Delivery Method Room Air 07/11/23 16:18 BMI result Body Mass Index 28.8 Const General: comfortable and no acute distress Nutritional Appearance: overweight Orientation/consciousness: patient oriented x3 General: Yes deferred Neuro General: patient oriented x3, gait normal and moves all extremities Psych Speech and movement: Normal speech and movement present Results AMB Urinalysis, Automated UA Leukoctes 0 Brittni/uL Last Edit by Paige Whyte CMA on 07/11/23 16:28 UA Nitrite Negative Last Edit by Paige Whyte CMA on 07/11/23 16:28 UA Urobilinogen 0.2 mg/dL Last Edit by Paige Whyte CMA on 07/11/23 16: UA Protein 0 mg/dL Last Edit by Paige Whyte CMA on 07/11/23 16:28 UA pH 6.0 Last Edit by Paige Whyte CMA on 07/11/23 16:28 UA Blood 0 Bob/uL Last Edit by Paige Whyte CMA on 07/11/23 16:28 UA Specific Reasnor 1.010 Last Edit by Paige Whyte CMA on 07/11/23 16:28 UA Ketone Negative Last Edit by Paige Whyte CMA on 07/11/23 16:28 UA Bilirubin 0 mg/dL Last Edit by Paige Whyte CMA on 07/11/23 16:28 UA Glucose 0 mg/dL Last Edit by Paige Whyte CMA on 07/11/23 16:28 Results Reviewed Results Reviewed: Laboratory Last Values Urine pH (Auto) 6.0 07/11/23 16: Specific Reasnor (Auto) 1.010 07/11/23 16:27 Urine Protein (Auto) 0 mg/dL 07/11/23 16:27 Glucose (UA)(Auto) 0 mg/dL 07/11/23 16:27 Urine Ketones (Auto) Negative 07/11/23 16:27 Urine Blood (Auto) 0 Bob/uL 07/11/23 16:27 Urine Nitrite (Auto) Negative 07/11/23 16:27 Urine Bilirubin (Auto) 0 mg/dL 07/11/23 16:27 Urine Urobilinogen (Auto) 0.2 mg/dL 07/11/23 16:27 Leukocyte Esterase (Auto) 0 Brittni/uL 07/11/23 16:27 Assessment & Plan Assessment & Plan (1) Urinary hesitancy due to benign prostatic hyperplasia: Code(s): N40.1 - Benign prostatic hyperplasia with lower urinary tract symptoms; R39.11 - Hesitancy of micturition Plan: - If unable to completely void, advised to go to ED for possible catherization - PSA levels WNL (done 05/2023). - Started a lower dose of Tamsulosin today. - Clean Catch POCT UA WNL. Orders: Orders AMB Urinalysis Automated Today Z13.9 - Encounter for screening, unspecified Medications: New tamsulosin 0.4 mg PO DAILY 30 caps 1RF N40.1 - Benign prostatic hyperplasia with lower urinary tract symptoms, R39.11 - Hesitancy of micturition Coding Level of Care Code Est Pt Level 3 (94298) Diagnoses Urinary hesitancy due to benign prostatic hyperplasia N40.1; R39.11 Time Spent (min) 15
[2023-07-11 16:18] VITALS: BP 120/82; PULSE 88; TEMP 36.3; O2SAT 97; BMI 28.8
== END ==
PROVIDERS: PCP Internal Medicine; Visit Provider Nurse Practitioner Family
DX: N40.1 Benign prostatic hyperplasia with lower urinary tract symptoms (principal); R39.11 Hesitancy of micturition
CPT/HCPCS: 81003; 99213

== ENCOUNTER 2023-07-31 09:09 | Day surgery (SDC) | payer MEDICARE, SELFPAY ==
--- NOTE | 2023-04-28 09:52 | HO.ANESPROP2 ---
HPI - Anesthesia Eval Consult details Narrative: 67yo M for Colonoscopy PMFSH Active Problems Active Problems: All Active Problems (Updated 04/24/23 @ 11:06 by Maryellen Gregg MD) Urinary incontinence, urge (Acute) Chronic low back pain with sciatica (Acute) Impaired fasting glucose (Acute) Dyslipidemia (Acute) Degenerative disc disease, lumbar (Acute) Overweight (Acute) Not ready to quit smoking (Acute) Depression with anxiety (Acute) Past Medical History Medical History (Updated 04/24/23 @ 11:06 by Maryellen Gregg MD) Urinary incontinence, urge Nail discoloration Chronic low back pain with sciatica Hx of type B viral hepatitis Impaired fasting glucose Dyslipidemia Vitamin D deficiency Degenerative disc disease, lumbar Hx of hepatitis C Overweight Not ready to quit smoking Depression with anxiety Family History Family History Father No problems noted. Mother No problems noted. Brother No problems noted. Son No problems noted. Sister Substance use disorder Mental health disorder Sister No problems noted. Surgical History Surgical History Hx of colonoscopy H/O lumbar discectomy Social History Social History Housing: House Alcohol intake: former Patient Tobacco Use Status: Current everyday Tobacco user Cigarette Packs Per Day: 1 e-Cigarette/Vaping Use: Never Used service: No Current occupational status: employed Cognitive needs: No Hearing needs: No Vision needs: Yes Meds Allergies Allergy/AdvReac Type Severity Reaction Status Date / Time No Known Allergies Allergy Verified 04/24/23 11:01 Home Medications Medication Instructions Recorded Confirmed Last Taken Type risperidone 0.5 mg tablet 0 mg PO 01/13/20 10/17/22 Unknown History gabapentin 300 mg capsule 600 mg PO TID 10/17/22 10/17/22 Unknown History venlafaxine 37.5 mg 37.5 mg PO BEDTIME 10/17/22 10/17/22 Unknown History capsule,extended release 24 hr venlafaxine 75 mg capsule,extended 75 mg PO QAM 10/17/22 10/17/22 Unknown History release 24 hr Exam Pertinent Lab Results Pertinent Lab Results: Laboratory Tests 12/12/22 12/12/22 04/24/23 10:48 10:48 11:15 WBC 5.7 Hgb 14.7 Hct 43.8 Plt Count 262 Sodium 141 Potassium 4.8 Chloride 107 Carbon Dioxide BUN Creatinine 04/24/23 11:15 WBC Hgb Hct Plt Count Sodium Potassium Chloride Carbon Dioxide 26 BUN 12 Creatinine 0.93 Assessment and Plan Assessment Anesthesia Assessment: Chart Reviewed
--- NOTE | 2023-07-30 08:53 | HO.ANESPROP2 ---
Documented by User: Ryanne Lino NP 07/30/23 08:53 HPI - Anesthesia Eval Consult details Narrative: 68yo M for Colonoscopy PMFSH Active Problems Active Problems: All Active Problems Urinary hesitancy due to benign prostatic hyperplasia (Acute) Urinary incontinence, urge (Acute) Chronic low back pain with sciatica (Acute) Impaired fasting glucose (Acute) Dyslipidemia (Acute) Degenerative disc disease, lumbar (Acute) Overweight (Acute) Not ready to quit smoking (Acute) Depression with anxiety (Acute) Past Medical History Medical History Urinary hesitancy due to benign prostatic hyperplasia Urinary incontinence, urge Nail discoloration Chronic low back pain with sciatica Hx of type B viral hepatitis Impaired fasting glucose Dyslipidemia Vitamin D deficiency Degenerative disc disease, lumbar Hx of hepatitis C Overweight Not ready to quit smoking Depression with anxiety Family History Family History Father No problems noted. Mother No problems noted. Brother No problems noted. Son No problems noted. Sister Substance use disorder Mental health disorder Sister No problems noted. Surgical History Surgical History Hx of colonoscopy H/O lumbar discectomy Social History Social History Housing: House Alcohol intake: former Patient Tobacco Use Status: Current everyday Tobacco user Tobacco use type: Cigarette Cigarette Packs Per Day: 1 e-Cigarette/Vaping Use: Never Used Use of substances other than those prescribed or required for medical reasons: No Have you been hit, kicked, punched, or otherwise hurt by someone within the past year? If so, by whom?: No Are you DNR?: No Advance Directives: No Advance Directives Information Provided: Yes service: No Current occupational status: employed Cognitive needs: No Hearing needs: No Vision needs: Yes Meds Allergies Allergy/AdvReac Type Severity Reaction Status Date / Time No Known Allergies Allergy Verified 07/11/23 16:20 Home Medications ?Medication ?Instructions ?Recorded ?Confirmed ?Last Taken ?Type gabapentin 300 mg capsule 600 mg PO TID 10/17/22 10/17/22 Unknown History venlafaxine 37.5 mg 37.5 mg PO BEDTIME 10/17/22 10/17/22 Unknown History capsule,extended release 24 hr venlafaxine 75 mg capsule,extended 75 mg PO QAM 10/17/22 10/17/22 Unknown History release 24 hr Assessment and Plan Assessment Anesthesia Assessment: Chart Reviewed Documented by User: Reyna Love MD 07/31/23 11:15 PMF Active Problems Active Problems: All Active Problems Urinary hesitancy due to benign prostatic hyperplasia (Acute) Urinary incontinence, urge (Acute) Chronic low back pain with sciatica (Acute) Impaired fasting glucose (Acute) Dyslipidemia (Acute) Degenerative disc disease, lumbar (Acute) Overweight (Acute) Not ready to quit smoking (Acute) Depression with anxiety (Acute) Smoker- last cigarette this morning Past Medical History Medical History Urinary hesitancy due to benign prostatic hyperplasia Urinary incontinence, urge Nail discoloration Chronic low back pain with sciatica Hx of type B viral hepatitis Impaired fasting glucose Dyslipidemia Vitamin D deficiency Degenerative disc disease, lumbar Hx of hepatitis C Overweight Not ready to quit smoking Depression with anxiety Family History Family History Father No problems noted. Mother No problems noted. Brother No problems noted. Son No problems noted. Sister Substance use disorder Mental health disorder Sister No problems noted. Family history of problems with anesthesia: No Surgical History Surgical History Hx of colonoscopy H/O lumbar discectomy History of Problems with Anesthesia: No Social History Social History Housing: House Alcohol intake: former Patient Tobacco Use Status: Current everyday Tobacco user Tobacco use type: Cigarette Cigarette Packs Per Day: 1 e-Cigarette/Vaping Use: Never Used Use of substances other than those prescribed or required for medical reasons: No Have you been hit, kicked, punched, or otherwise hurt by someone within the past year? If so, by whom?: No Are you DNR?: No Advance Directives: No Advance Directives Information Provided: Yes service: No Current occupational status: employed Cognitive needs: No Hearing needs: No Vision needs: Yes Meds Allergies Allergy/AdvReac Type Severity Reaction Status Date / Time No Known Allergies Allergy Verified 07/11/23 16:20 Home Medications ?Medication ?Instructions ?Recorded ?Confirmed ?Last Taken ?Type gabapentin 300 mg capsule 600 mg PO TID 10/17/22 10/17/22 Unknown History venlafaxine 37.5 mg 37.5 mg PO BEDTIME 10/17/22 10/17/22 Unknown History capsule,extended release 24 hr venlafaxine 75 mg capsule,extended 75 mg PO QAM 10/17/22 10/17/22 Unknown History release 24 hr Exam Height,Weight and Vital Signs: Height 6 ft Weight 95.254 kg Vital Signs Temp Pulse Resp BP Pulse Ox O2 Del Method 07/31/23 10:08 98.1 F 85 16 130/93 H 96 Room Air, CPAP Airway Mallampati Class: III TM Dist: >3cm Neck ROM: Full Loose/Missing/Broken Teeth: No Heart: RRR Lungs: CTAB Assessment and Plan Assessment Anesthesia Assessment: Anesthesia Plan Discussed and Chart Reviewed Final Anesthetic Review Family History of Problems with Anesthesia: No History of Problems with Anesthesia: No NPO: Yes ASA Class: III Final Preanesthetic Review: No Changes in Pt Med Stat, Meds/Allgs Chart Reviewed, Consent Obtained/Reviewed and Anes Risks/Benef Reviewed Patient Risk: Low Procedure Risk: Low Assessment/Block/Sedation in SS: Assess/Block/Sedation-SS Anesthetic Plan Anesthetic Plan: TIVA Disposition: Standard PACU
[2023-07-31 10:07] VITALS: BMI 28.5
[2023-07-31 10:08] VITALS: BP 130/93; PULSE 85; RESP 16; TEMP 36.7; O2SAT 96
--- NOTE | 2023-07-31 11:03 | MHC.SHP ---
Pre-Procedural Eval Section A - 24 Hr Update-Section A only Date of Service: 07/31/23 Section B - Complete if H&P > 30 days Chief Complaint: screening Relevant Family History (Specify if Yes): No Relevant Social History: Tobacco Use Present Medications: see Short Stay Collaborative assessment Medical History: Significant History (Urinary hesitancy due to benign prostatic hyperplasia Urinary incontinence, urge Nail discoloration Chronic low back pain with sciatica Hx of type B viral hepatitis Impaired fasting glucose Dyslipidemia Vitamin D deficiency Degenerative disc disease, lumbar Hx of hepatitis C Overweight Not ready to ) History of Previous Operations: Relevant previous surgery/procedure and date(s) (Hx of colonoscopy H/O lumbar discectomy) Allergies: Allergies Allergy/AdvReac Type Severity Reaction Status Date / Time No Known Allergies Allergy Verified 07/11/23 16:20 Review of Systems Sugical H&P ROS: Negative: Constitution, Cardiovascular, Respiratory, Neurological, Psychiatric, Hem-Onc, Allergic/Immunologic, Gastrointestinal, Genitourinary, Musculoskeletal, Integumentary, Endocrine and Eyes/Ears/Nose/Throat Exam Surgical H&P Exam: Normal: HEENT, Normal: Heart, Normal: Lungs, Normal: Extremities, Normal: Abdomen, Normal: Skin and Normal: Neurological Plan Diagnosis/Plan: Unchanged I have reviewed the history and physical and performed a pertinent physical examination on my patient. No changes have occurred unless specified. Time Spent With Patient Time: Total time managing care of this patient today ____ minutes.
--- NOTE | 2023-07-31 11:04 | P.OPN-COLO_ITS ---
Colonoscopy Operative Note Operative Note Date of Service: 07/31/23 Narrative: Operative Information Procedure Description: Colonoscopy Indication: screening Anesthesia: MAC COLONOSCOPY Instrument: Olympus variable stiffness pediatric scope 190L Colonoscopy Monitoring: Vital signs and clinical assessment, continuous EKG monitoring, Pulse oximetry, Carbon Dioxide monitoring and blood pressure monitoring were done throughout the procedure. Colon withdrawal time was 15 minutes. Procedure: The patient was placed in the left lateral decubitis position and pre-procedure medications were administered. After a digital rectal examination of the ano-rectum, the video colonoscope was inserted into the rectum and advanced through the colon to the cecum/TI. The colonoscope was slowly withdrawn in a retrograde panoramic fashion and the colon mucosa was carefully examined including a retroflexed view of the rectum. Findings and interventions are described below. Procedure Difficulty: easy Findings: Terminal Ileum-normal Cecum: 7-8 mm sessile polyp removed with cold snare Ascending Colon: 7-9 mm sessile polyp removed with cold forceps Transverse Colon - 8-9 mm sessile polyp removed with cold snare Descending Colon: 8-9 mm sessile polyp removed with cold snare Sigmoid Colon: x 2 --8-9 mm sessile polyps removed with cold snare, moderate diverticulosis Rectum: Retroflexion with small internal hemorrhoids seen, grade I Anorectum - normal Intervention: cold snare, cold forceps Colon preparation: [place] Bowel Preparation Scale Right colon; 2 Transverse colon: 2 Left colon; 1-2 (0 = Unprepared colon segment with mucosa not seen due to solid stool that cannot be cleared. 1 = Portion of mucosa of the colon segment seen, but other areas of the colon segment not well seen due to staining, residual stool and/or opaque liquid. 2 = Minor amount of residual staining, small fragments of stool and/or opaque liquid, but mucosa of colon segment seen well. 3 = Entire mucosa of colon segment seen well with no residual staining, small fragments of stool or opaque liquid) Impression and Post Procedure Diagnosis: diverticulosis colon polyps internal hemorrhoids Plan: High fiber diet leaflet Avoid straining at stool, epsom salts and sitz bath, anusol supps or cream Repeat Colonoscopy in 3 years due to polyps or earlier if clinically indicated Above findings were reviewed with the patient and relevant handouts were provided if indicated.
[2023-07-31 11:55] VITALS: BP 125/81; PULSE 72; RESP 17; TEMP 36.6; O2SAT 96
[2023-07-31 12:10] VITALS: BP 133/82; PULSE 70; RESP 17; O2SAT 98
[2023-07-31 12:25] VITALS: BP 143/86; PULSE 64; RESP 17; TEMP 36.4; O2SAT 98
== END 2023-07-31 13:16 | disposition home or self-care (01) ==
PROVIDERS: PCP Internal Medicine; Visit Provider Internal Medicine Gastroenterology
PROC: 0DJD8ZZ Inspection of Lower Intestinal Tract, Via Natural or Artificial Opening Endoscopic (ICD-10-PCS; CPT 45378; principal; 2023-07-31 11:30)
DX: Z12.11 Encounter for screening for malignant neoplasm of colon (principal); D12.0 Benign neoplasm of cecum; D12.2 Benign neoplasm of ascending colon; D12.3 Benign neoplasm of transverse colon; D12.4 Benign neoplasm of descending colon; K63.5 Polyp of colon; K64.0 First degree hemorrhoids; K57.30 Diverticulosis of large intestine without perforation or abscess without bleeding; K59.01 Slow transit constipation
CPT/HCPCS: 45385; 45380; 88305; J2704

== ENCOUNTER → 2023-07-31 09:09 | Outpatient (BNV) | payer MEDICARE, SELFPAY | PROVIDERS: PCP Internal Medicine; Visit Provider Internal Medicine Gastroenterology | DX: Z12.11 Encounter for screening for malignant neoplasm of colon (principal); D12.0 Benign neoplasm of cecum; D12.2 Benign neoplasm of ascending colon; D12.3 Benign neoplasm of transverse colon; D12.4 Benign neoplasm of descending colon; K57.30 Diverticulosis of large intestine without perforation or abscess without bleeding; K64.0 First degree hemorrhoids | CPT/HCPCS: 45380; 45385 ==

== ENCOUNTER 2023-08-06 12:51 | Outpatient (AMB) | payer MEDICARE, SELFPAY ==
--- NOTE | 2023-08-06 12:57 | MHC.OFFVIS ---
Vital Signs 08/06/23 13:00 Height 6 ft Weight 207 lb 3.752 oz BMI 28.1 BP 127/72 Blood Pressure Location Lt brachial Position Sitting Pulse 88 Intake Visit Reasons: s/p colonoscopy Intake Note: Emanuel presents in the office as a follow up colonoscopy. CC: Just has been having some gas since procedure but no other concerns. 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 Patient will start taking Dulcolax tablets every day so he can emptying his bowels daily. My suspicion is that he was constipated and backed up when he was doing his prep and unable to handle all the fluids. He will still do the split MiraLax prep and makes it in vitamin water versus orange juice like he did last time. I will see patient after the procedure, sooner on as needed basis. Patient is agreeable to this plan and verbalizes understanding of instructions. He was given the opportunity to ask questions and all questions answered. ? Thank you for allowing me to participate in his care Medications New bisacodyl (Dulcolax (bisacodyl)) 10 mg (2 x 5 mg) PO BEDTIME 180 tabs 4RF polyethylene glycol 3350 (Miralax) As directed by gastroenterology department at [facility] 238 grams PO ONCE 238 grams 0RF Z12.11 COLONOSCOPY Findings: Terminal Ileum-normal Cecum: 7-8 mm sessile polyp removed with cold snare Ascending Colon: 7-9 mm sessile polyp removed with cold forceps Transverse Colon - 8-9 mm sessile polyp removed with cold snare Descending Colon: 8-9 mm sessile polyp removed with cold snare Sigmoid Colon: x 2 --8-9 mm sessile polyps removed with cold snare, moderate diverticulosis Rectum: Retroflexion with small internal hemorrhoids seen, grade I Anorectum - normal Intervention: cold snare, cold forceps Colon preparation: [place] Bowel Preparation Scale Right colon; 2 Transverse colon: 2 Left colon; 1-2 (0 = Unprepared colon segment with mucosa not seen due to solid stool that cannot be cleared. 1 = Portion of mucosa of the colon segment seen, but other areas of the colon segment not well seen due to staining, residual stool and/or opaque liquid. 2 = Minor amount of residual staining, small fragments of stool and/or opaque liquid, but mucosa of colon segment seen well. 3 = Entire mucosa of colon segment seen well with no residual staining, small fragments of stool or opaque liquid) Impression and Post Procedure Diagnosis: diverticulosis colon polyps internal hemorrhoids Plan: High fiber diet leaflet Avoid straining at stool, epsom salts and sitz bath, anusol supps or cream Repeat Colonoscopy in 3 years due to polyps or earlier if clinically indicated PATHOLOGY RESULTS Diagnosis A. Cecum, polypectomy: Fragments of tubular adenoma; negative for high-grade dysplasia or carcinoma. B. Colon, ascending, polypectomy: Fragments of tubular adenoma; negative for high-grade dysplasia or carcinoma. C. Colon, transverse, polypectomy: Fragments of tubular adenoma; negative for high-grade dysplasia or carcinoma. D. Colon, descending, polypectomy: Fragments of tubular adenoma; negative for high-grade dysplasia or carcinoma. E. Colon, sigmoid, polypectomies: Hyperplastic mucosal polyps TODAY'S VISIT: Patient is here today for follow-up and to discuss colonoscopy results. Patient reports that he has been doing well since procedure. Denies any ill effects from the prep, anesthesia or procedure itself. Patient reports that he no longer needs to use Dulcolax. Patient states that he is moving his bowels without any trouble. Six polyps found, 5 of dose polyps were tubular adenoma without high-grade dysplasia or carcinoma. Recommendation was made for patient to return for colorectal screening in 3 years, sooner if clinically necessary. Patient denies melena, hematochezia. Denies any dyspepsia, dysphagia or odynophagia. Patient continues to smoke cigarettes. Discussion about quitting [facility] Medical History (Updated 08/06/23 @ 13:19 by Seema Pollard, [facility]-) Diverticulosis Tubular adenoma of colon Urinary hesitancy due to benign prostatic hyperplasia Urinary incontinence, urge Nail discoloration Chronic low back pain with sciatica Hx of type B viral hepatitis Impaired fasting glucose Dyslipidemia Vitamin D deficiency Degenerative disc disease, lumbar Hx of hepatitis C Overweight Not ready to quit smoking Depression with anxiety Surgical History (Updated 08/06/23 @ 12:59 by HUANG Bojorquez) Hx of colonoscopy H/O lumbar discectomy Family History Father No problems noted. Mother No problems noted. Brother No problems noted. Son No problems noted. Sister Substance use disorder Mental health disorder Sister No problems noted. Social History Housing: House Alcohol intake: former Patient Tobacco Use Status: Current everyday Tobacco user Tobacco use type: Cigarette Cigarette Packs Per Day: 1 e-Cigarette/Vaping Use: Never Used service: No Current occupational status: employed Cognitive needs: No Hearing needs: No Vision needs: Yes Review of Systems Const Denies weight gain and Denies weight loss ENT Reports no additional complaints, Denies dysphagia and Denies odynophagia Card Reports no additional complaints Resp Reports no additional complaints GI Denies abdominal pain, Denies belching, Denies melena, Denies bloating, Denies change in bowel habits, Reports constipation, Denies dysphagia, Denies excessive flatus, Denies dyspepsia, Denies heartburn, Denies diarrhea, Denies loose stools, Denies nausea, Denies odynophagia and Denies vomiting Reports no additional complaints Musc Reports no additional complaints Neuro Reports no additional complaints Psych Reports no additional complaints Endo Reports no additional complaints Physical Exam Vital Signs: Last Vital Signs Pulse 88 08/06/23 13:00 BP 127/72 08/06/23 13:00 BMI result Body Mass Index 28.1 Const General: healthy appearing, no acute distress and well developed Nutritional Appearance: well nourished and obese Orientation/consciousness: patient oriented x3 Resp Effort & Inspection: normal respiratory effort, able to speak in complete sentences, no tracheal deviation and symmetric chest movement Auscultation: clear to auscultation bilaterally Cardio Rate: regular rate GI Inspection: Yes normal to inspection, No distended and Yes obesity Palpation (GI): Soft to palpation, not firm, nontender and No hepatosplenomegaly present Auscultation: normal bowel sounds General: Yes no CVA tenderness Back/Spine/Pelvis Back: no CVA tenderness Skin General skin exam: elasticity normal, turgor normal and dry skin Neuro General: patient oriented x3 Psych Appearance: grossly normal Mental Status: mental status grossly normal Assessment & Plan Assessment & Plan (1) Tubular adenoma of colon: Code(s): D12.6 - Benign neoplasm of colon, unspecified Category: Medical (2) Status post colonoscopy: Code(s): Z98.890 - Other specified postprocedural states (3) Diverticulosis: Code(s): K57.90 - Diverticulosis of intestine, part unspecified, without perforation or abscess without bleeding Category: Medical Plan Tubular adenoma found without high-grade dysplasia or carcinoma. Diverticulosis of sigmoid colon. Discussion with patient about high-fiber diet, adding fiber supplement as well as probiotics. List of food high in fiber given to patient. Patient will start taking MiraLax daily to help him empty his bowels better. Colonoscopy in 3 years, sooner on as needed basis. Discussed with patient smoking cessation and how important it is to stop smoking. Patient agrees. He will return in our office on as needed basis. He is agreeable to this plan and verbalizes understanding of instructions. He was given the opportunity to ask questions and all questions answered. Thank you for allowing me to participate in his care Medications: New polyethylene glycol 3350 (Miralax) 17 grams PO DAILY 510 grams 2RF Discontinued bisacodyl (Dulcolax (bisacodyl)) Discontinued Reason: Doctor's Order 10 mg (2 x 5 mg) PO BEDTIME 180 tabs 4RF Coding Level of Care Code Est Pt Level 3 (80842) Diagnoses Tubular adenoma of colon D12.6 Status post colonoscopy Z98.890 Diverticulosis K57.90 Time Spent (min) 30 Comment 20 minutes spent with patient and additional 10 minutes spent reviewing his records
[2023-08-06 13:00] VITALS: BP 127/72; PULSE 88; BMI 28.1
== END 2023-08-06 13:31 | disposition home or self-care (01) ==
PROVIDERS: PCP Internal Medicine; Referring Provider Internal Medicine; Visit Provider Nurse Practitioner Family
DX: D12.6 Benign neoplasm of colon, unspecified (principal); Z98.890 Other specified postprocedural states; K57.90 Diverticulosis of intestine, part unspecified, without perforation or abscess without bleeding
CPT/HCPCS: 99213

== ENCOUNTER → 2023-08-06 12:51 | Outpatient (BNVA) | payer MEDICARE, SELFPAY | PROVIDERS: PCP Internal Medicine; Visit Provider Nurse Practitioner Family | DX: K57.90 Diverticulosis of intestine, part unspecified, without perforation or abscess without bleeding (principal); D12.6 Benign neoplasm of colon, unspecified; Z98.890 Other specified postprocedural states | CPT/HCPCS: 99212 ==

== ENCOUNTER 2023-08-08 09:42 | Outpatient (AMB) | payer MEDICARE, SELFPAY ==
[2023-08-08 10:04] VITALS: BP 120/90; PULSE 81; TEMP 36.2; O2SAT 97; BMI 28.1
--- NOTE | 2023-08-08 10:04 | MHC.OFFWIV ---
Intake Vital Signs 08/08/23 10:04 Height 6 ft Weight 207 lb BMI 28.1 BP 120/90 H Blood Pressure Location Lt brachial Position Sitting Pulse 81 Pulse Source Pulse Oximeter Temp 97.2 F Temp Source Temporal Artery Scan Pulse Oximetry (%) 97 Oxygen Delivery Method Room Air Intake Visit Reasons: EP LT ear ache Intake Note: pt is here today for lft ear ache started 5 days ago Patient Tobacco Use Status: Current everyday Tobacco user Allergies No Known Allergies Allergy (Verified 08/08/23 10:10) Do you need a note to return to daycare/school/sports/work: No HPI HPI Comments History of Present Illness Details Patient is a 68-year-old male complaining of feeling like something is in his left ear canal x5 days. He did use a Q-tip 6 days ago but states the whole Q-tip came out intact. He does state he has a little bit of reduced hearing on that side but denies any fevers outright pain or history of ear infections. [facility] Medical History (Updated 08/08/23 @ 11:05 by Argentina Roman PA-C) Diverticulosis Tubular adenoma of colon Urinary hesitancy due to benign prostatic hyperplasia Urinary incontinence, urge Nail discoloration Chronic low back pain with sciatica Hx of type B viral hepatitis Impaired fasting glucose Dyslipidemia Vitamin D deficiency Degenerative disc disease, lumbar Hx of hepatitis C Overweight Not ready to quit smoking Depression with anxiety Surgical History (Updated 08/06/23 @ 12:59 by HUANG Bojorquez) Hx of colonoscopy H/O lumbar discectomy Family History Father No problems noted. Mother No problems noted. Brother No problems noted. Son No problems noted. Sister Substance use disorder Mental health disorder Sister No problems noted. Social History Housing: House Alcohol intake: former Patient Tobacco Use Status: Current everyday Tobacco user Tobacco use type: Cigarette Cigarette Packs Per Day: 1 e-Cigarette/Vaping Use: Never Used service: No Current occupational status: employed Cognitive needs: No Hearing needs: No Vision needs: Yes Review of Systems Const All systems reviewed & are unremarkable except as noted in HPI and below Physical Exam Vital Signs: Last Vital Signs Temp 97.2 F 08/08/23 10:04 Pulse 81 08/08/23 10:04 BP 120/90 H 08/08/23 10:04 Pulse Ox 97 08/08/23 10:04 Oxygen Delivery Method Room Air 08/08/23 10:04 BMI result Body Mass Index 28.1 Const General: cooperative, healthy appearing, comfortable, no acute distress and well developed Orientation/consciousness: patient oriented x3 Limitations: no limitations HEENT Head: Yes normal to inspection Ears: external ears normal, TM normal on the right and unable to visualize TM (Impacted with cerumen) on the left Eyes General: appearance normal, both eyes and all related structures Neck Neck: Yes normal visual inspection and Yes full ROM Resp Effort & Inspection: normal respiratory effort and able to speak in complete sentences Skin General skin exam: no rashes or lesions noted Neuro General: patient oriented x3 Extrem General: Yes normal to inspection Office Procedures Cerumen Removal From which ear canal was the cerumen removed: left Removal: otoscope w/curette Notes: patient tolerated procedure well, no complications and ear canal clear 24930-Nds Wax Removal by Spoon/Curette Assessment & Plan Assessment & Plan (1) Impacted cerumen, left ear: Code(s): H61.22 - Impacted cerumen, left ear Plan: Removed cerumen, ear canal clear, recommended Debrox drops for prophylaxis. Plan See above Coding Level of Care Code Est Pt Level 2 (91482) Diagnoses Impacted cerumen, left ear H61.22 CPT Codes Office Procedure - CPT: 37924-Sbp Wax Removal by Spoon/Curette ([id number])
== END 2023-08-08 10:49 | disposition home or self-care (01) ==
PROVIDERS: PCP Internal Medicine; Visit Provider Physician Assistant
DX: H61.22 Impacted cerumen, left ear (principal)
CPT/HCPCS: 69210; 99212

== ENCOUNTER 2023-09-02 10:22 | Outpatient (AMB) | payer MEDICARE, MEDICAID, SELFPAY ==
--- NOTE | 2023-09-02 10:49 | A.OFFVIS_ITS ---
Intake Visit Reasons: urinary urgency, urinary incontinence Intake Note: Patient is present for Urinary urgency,urinary incontinence Urology Medication:none Antibiotic Allergy:none Blood Thinner:none Police Inspector Required: No Allergies No Known Allergies Allergy (Verified 11/10/23 01:30) Medication List - Last Reconciled 09/02/23 by Yash Rich MD gabapentin 600 mg PO TID rosuvastatin 5 mg PO DAILY venlafaxine ER 75 mg PO QAM HPI Comments Details: Emanuel is a pleasant male. He is a patient of Dr. Gregg. He is seen for the following urologic conditions - lower urinary tract symptoms Lower urinary tract symptoms Progressive Incomplete bladder emptying Developing weakness of stream Has done well with tamsulosin previously Re-initiate tamsulosin and check PSA in 12 months [facility] Medical History (Updated 11/10/23 @ 01:47 by Maryellen Gregg MD) Heavy cigarette smoker (20-39 per day) Hx of cholecystitis Diverticulosis Tubular adenoma of colon Urinary hesitancy due to benign prostatic hyperplasia Urinary incontinence, urge Nail discoloration Chronic low back pain with sciatica Hx of type B viral hepatitis Impaired fasting glucose Dyslipidemia Vitamin D deficiency Degenerative disc disease, lumbar Hx of hepatitis C Overweight Not ready to quit smoking Depression with anxiety Surgical History History of umbilical hernia repair (~09/16/23) Hx laparoscopic cholecystectomy (~09/16/23) S/P hernia surgery H/O hand surgery Hx of colonoscopy H/O lumbar discectomy Family History Father No problems noted. Mother No problems noted. Brother No problems noted. Son No problems noted. Sister Substance use disorder Mental health disorder Sister No problems noted. Social History Household Members: Significant Other Housing: Apartment Alcohol intake: former Patient Tobacco Use Status: Current everyday Tobacco user Tobacco use type: Cigarette Cigarette Packs Per Day: 1 Cigarettes Per Day: 20.0 Years Smoked: 50 e-Cigarette/Vaping Use: Never Used Second Hand Smoke Exposure: Yes Advance Directives Date on File: 09/16/23 service: No Current occupational status: employed Cognitive needs: No Hearing needs: No Vision needs: Yes Review of Systems Const Denies chills and Denies fever(s) Card Reports no additional complaints and Denies syncope Resp Denies cough GI Denies abdominal pain and Denies heartburn Reports as per HPI and Denies change in libido Neuro Denies syncope Psych Denies change in libido Endo Denies change in libido Physical Exam Const General: cooperative, healthy appearing, comfortable and no acute distress Orientation/consciousness: patient oriented x3 HEENT Face and sinus: Yes normal facial exam Mouth: moist mucous membranes Neck Neck: Yes normal visual inspection, Yes full ROM and Yes trachea midline Chest Chest palpation & inspection: normal inspection of the chest Resp Effort & Inspection: normal respiratory effort, able to speak in complete sentences and no respiratory distress GI Inspection: Yes normal to inspection Back/Spine/Pelvis Cervical Spine: normal cervical lordosis Thoracic/Lumbar Spine: thoracic and lumbar spine normal to inspection Skin General skin exam: no rashes or lesions noted Neuro General: patient oriented x3, gait normal, tone normal and moves all extremities Extrem General: Yes normal to inspection and Yes capillary refill normal Results AMB Urinalysis, Automated UA Leukoctes 0 Brittni/uL Last Edit by CLAUDETTE Willoughby on 09/02/23 11:01 UA Nitrite Negative Last Edit by CLAUDETTE Willoughby on 09/02/23 11:01 UA Urobilinogen 0.2 mg/dL Last Edit by CLAUDETTE Willoughby on 09/02/23 11:0 1 UA Protein 15 mg/dL Last Edit by CLAUDETTE Willoughby on 09/02/23 11:01 UA pH 6.5 Last Edit by CLAUDETTE Willoughby on 09/02/23 11:01 UA Blood 0 Bob/uL Last Edit by CLAUDETTE Willoughby on 09/02/23 11:01 UA Specific [place] 1.015 Last Edit by CLAUDETTE Willoughby on 09/02/23 11: 01 UA Ketone Negative Last Edit by CLAUDETTE Willoughby on 09/02/23 11:01 UA Bilirubin 0 mg/dL Last Edit by CLAUDETTE Willoughby on 09/02/23 11:01 UA Glucose 0 mg/dL Last Edit by CLAUDETTE Willoughby on 09/02/23 11:01 Results Reviewed Results Reviewed: Laboratory Last Values Urine pH (Auto) 6.5 09/02/23 11:01 Specific [place] (Auto) 1.015 09/02/23 11:01 Urine Protein (Auto) 15 mg/dL 09/02/23 11:01 Glucose (UA)(Auto) 0 mg/dL 09/02/23 11:01 Urine Ketones (Auto) Negative 09/02/23 11:01 Urine Blood (Auto) 0 Bob/uL 09/02/23 11:01 Urine Nitrite (Auto) Negative 09/02/23 11:01 Urine Bilirubin (Auto) 0 mg/dL 09/02/23 11:01 Urine Urobilinogen (Auto) 0.2 mg/dL 09/02/23 11:01 Leukocyte Esterase (Auto) 0 Brittni/uL 09/02/23 11:01 Assessment & Plan Assessment & Plan (1) Urinary incontinence, urge: Code(s): N39.41 - Urge incontinence Category: Medical (2) Urinary hesitancy due to benign prostatic hyperplasia: Code(s): N40.1 - Benign prostatic hyperplasia with lower urinary tract symptoms; R39.11 - Hesitancy of micturition Category: Medical Plan Six-month follow-up Bladder US Orders: Orders US bladder 6 Months R39.12 - Poor urinary stream, N40.1 - Benign prostatic hyperplasia with lower urinary tract symptoms, R39.11 - Hesitancy of micturition AMB Urinalysis Automated 09/02/23 Z13.9 - Encounter for screening, unspecified Medications: New tamsulosin 0.4 mg PO BEDTIME 90 caps 1RF 90 days N40.1 - Benign prostatic hyperplasia with lower urinary tract symptoms, R39.11 - Hesitancy of micturition, N13.8 - Other obstructive and reflux uropathy Patient Instructions: Imaging studies, laboratory and physical exam results were discussed and reviewed in detail. No major barriers to patient understanding were identified. An opportunity to ask questions regarding the treatment plan was provided. All questions were answered. The patient expressed understanding and agreement with the above treatment plan. The patient is aware they should contact our office by phone for worsening of their current condition or the appearance of new urologic symptoms. Compliance is encouraged with any medications and followup testing that is ordered. It is a privilege to participate in the urologic care of your patient. If you have any questions or concerns regarding treatment for the above conditions, or other urologic issues, please do not hesitate to contact me. The office telephone contact is [phone]. This note is constructed using voice recognition software. While every effort has been made to ensure accuracy linter tender errors may have been included. Yours sincerely, Dr Yash Rich MD, [facility] - Urology Providers of Expert, Compassionate Care for the Genitourinary System Coding Level of Care Code New Pt Level 4 (72438) Diagnoses Urinary incontinence, urge N39.41 Urinary hesitancy due to benign prostatic hyperplasia N40.1; R39.11
== END 2023-09-02 11:37 | disposition home or self-care (01) ==
PROVIDERS: PCP Internal Medicine; Visit Provider Urology
DX: N39.41 Urge incontinence (principal); N40.1 Benign prostatic hyperplasia with lower urinary tract symptoms; R39.11 Hesitancy of micturition
CPT/HCPCS: 99204

== ENCOUNTER → 2023-09-02 10:22 | Outpatient (BNVA) | payer MEDICARE, MEDICAID, SELFPAY | PROVIDERS: PCP Internal Medicine; Visit Provider Urology | DX: N40.1 Benign prostatic hyperplasia with lower urinary tract symptoms (principal); N13.8 Other obstructive and reflux uropathy; R39.11 Hesitancy of micturition; N39.41 Urge incontinence | CPT/HCPCS: 81003; 99202 ==

== ENCOUNTER 2023-09-16 08:17 | Outpatient (AMB) | payer MEDICARE, SELFPAY ==
[2023-09-16 08:32] VITALS: BP 122/72; PULSE 82; TEMP 36.8; O2SAT 97; BMI 27.1
--- NOTE | 2023-09-16 08:32 | MHC.OFFWIV ---
Intake Vital Signs 09/16/23 08:32 Height 6 ft Weight 200 lb BMI 27.1 BP 122/72 Blood Pressure Location Lt brachial Position Sitting Pulse 82 Pulse Source Pulse Oximeter Temp 98.2 F Temp Source Oral Pulse Oximetry (%) 97 Oxygen Delivery Method Room Air Intake Visit Reasons: EP stomach pain/back Intake Note: Pt is here today stomach and back pain, pt states started 2 days ago Patient Tobacco Use Status: Current everyday Tobacco user Allergies No Known Allergies Allergy (Verified 09/16/23 08:32) Do you need a note to return to daycare/school/sports/work: No HPI HPI Comments History of Present Illness Details This is a 68-year-old male with past medical history of BPH, hyperlipidemia and no prior abdominal surgeries presenting for evaluation pain that radiates to his back for the past 3 days. Patient states 3 days ago he was started on amoxicillin for management of a dental infection. Since that time 1st noticed pain in the right side of his back however he now states he has an aching right upper quadrant abdominal pain radiating to his back. Patient denies having any fevers, chills, nausea, vomiting, chest pain, diarrhea, dysuria, hematuria or urinary frequency. Patient has not taken any medication for treatment of his discomfort. [facility] Medical History (Updated 09/16/23 @ 09:05 by Chary Abdi PA-C) Diverticulosis Tubular adenoma of colon Urinary hesitancy due to benign prostatic hyperplasia Urinary incontinence, urge Nail discoloration Chronic low back pain with sciatica Hx of type B viral hepatitis Impaired fasting glucose Dyslipidemia Vitamin D deficiency Degenerative disc disease, lumbar Hx of hepatitis C Overweight Not ready to quit smoking Depression with anxiety Surgical History (Updated 08/06/23 @ 12:59 by HUANG Bojorquez) Hx of colonoscopy H/O lumbar discectomy Family History Father No problems noted. Mother No problems noted. Brother No problems noted. Son No problems noted. Sister Substance use disorder Mental health disorder Sister No problems noted. Social History Housing: House Alcohol intake: former Patient Tobacco Use Status: Current everyday Tobacco user Tobacco use type: Cigarette Cigarette Packs Per Day: 1 e-Cigarette/Vaping Use: Never Used service: No Current occupational status: employed Cognitive needs: No Hearing needs: No Vision needs: Yes Review of Systems Const Denies weakness ENT Reports no additional complaints Card Reports no additional complaints, Denies chest pain and Denies chest pain at rest GI Reports no additional complaints, Reports abdominal pain, Denies constipation, Denies GI cramping, Denies nausea and Denies vomiting Reports no additional complaints Musc Reports no additional complaints and Reports back pain (right mid-back) Skin/Breast Reports system reviewed and no additional complaints, except as documented Neuro Reports no additional complaints and Denies weakness Psych Reports no additional complaints Endo Reports no additional complaints Aller/Immun Reports no additional complaints Physical Exam Vital Signs: Last Vital Signs Temp 98.2 F 09/16/23 08:32 Pulse 82 09/16/23 08:32 BP 122/72 09/16/23 08:32 Pulse Ox 97 09/16/23 08:32 Oxygen Delivery Method Room Air 09/16/23 08:32 BMI result Body Mass Index 27.1 Const General: cooperative, healthy appearing and ill appearing acutely Nutritional Appearance: average body habitus Orientation/consciousness: patient oriented x3 Limitations: no limitations Resp Auscultation: clear to auscultation bilaterally Cardio Rate: regular rate Rhythm: regular rhythm GI Palpation (GI): Soft to palpation and Tenderness to palpation present (GI) in the RUQ; not in the epigastrum, not in the RLQ and not in the LUQ Auscultation: normal bowel sounds General: Yes Bimanual renal exam normal bilaterally, Yes bladder normal to palpation, Yes CVA tenderness and Yes no CVA tenderness Back/Spine/Pelvis Back: no CVA tenderness and CVA tenderness Thoracic/Lumbar Spine: thoracic and lumbar spine normal to inspection, thoraco-lumbar ROM normal, No pain with thoraco-lumbar ROM, No thoraco-lumbar ROM limited, No thoraco-lumbar spasm, No thoracic spinal tenderness, No lumbar spinal tenderness and No straight leg raise positive Neuro General: patient oriented x3 Psych Appearance: grossly normal Mental Status: mental status grossly normal Insight: Good insight present (Psych) Judgement: Good judgement present (Psych) Assessment & Plan Assessment & Plan (1) RUQ abdominal pain: Comment: Patient's symptoms may be related to an acute cholecystitis or cardiac pathology and therefore patient will be referred to the emergency department for further abdominal and cardiac evaluation. Code(s): R10.11 - Right upper quadrant pain Plan: Patient will go directly to [facility] ED for further evaluation and care. isabell Jones RN notified at 9:01am. Coding Level of Care Code Est Pt Level 3 (54053) Diagnoses RUQ abdominal pain R10.11 Time Spent (min) 20
== END 2023-09-16 09:05 | disposition home or self-care (01) ==
PROVIDERS: PCP Internal Medicine; Visit Provider Physician Assistant
DX: R10.11 Right upper quadrant pain (principal)
CPT/HCPCS: 99213

== ENCOUNTER 2023-09-16 09:47 | Inpatient (IN) | payer MEDICARE, SELFPAY ==
[2023-09-16] VITALS (12 sets, daily range): BP systolic 117–150; BP diastolic 68–90; PULSE 67–84; RESP 11–19; TEMP 36.1–36.9; O2SAT 94–99; BMI 26.4
--- NOTE | 2023-09-16 | ECG_ITS ---
Test Reason : ABDOMINAL PAIN Blood Pressure : / mmHG Vent. Rate : 075 BPM Atrial Rate : 075 BPM P-R Int : 162 ms QRS Dur : 088 ms QT Int : 410 ms P-R-T Axes : 055 062 066 degrees QTc Int : 457 ms Sinus rhythm with Premature atrial complexes Otherwise normal ECG When compared with ECG of 11-AUG-2017 16:58, Premature atrial complexes are now Present Referred By: Generic ED Physician Electronically Signed By:ADRIÁN KELLER MD
--- NOTE | ~2023-09-16 | US_ITS ---
EXAMINATION: US ABDOMEN LIMITED CLINICAL INFORMATION: Right upper quadrant pain. COMPARISON: 12/19/2011 TECHNIQUE: Real-time imaging of the right upper quadrant abdominal viscera. FINDINGS: PANCREAS: Partially obscured pancreas is unremarkable. The tail is obscured by bowel gas. LIVER: There is hyperechoic 0.8 x 1.2 x 1.6 cm area in the right lobe of the liver consistent with an appearance of small hemangioma. The liver is normal in size. The liver contour is normal. Parenchymal echogenicity is normal.There is no intrahepatic biliary duct dilatation seen. GALLBLADDER: Gallbladder abnormal with irregular cecal wall measured between 0.3 and 0.4 cm no calculi but echogenic sludge identified, and sonographic George's sign is reported positive. The gallbladder is physiologically distended. COMMON BILE DUCT: Normal in caliber measuring 0.6 cm in diameter. RIGHT KIDNEY: There is exophytic 1.1 x 1.0 x 1.0 cm cyst in interpolar cortex.. No hydronephrosis. No renal calculi or focal parenchymal lesions. The kidney measures 10.5 cm in maximum dimension. FREE FLUID: None. US/US abdomen limited IMPRESSION: Thick wall of gallbladder and reported positive George's sign without cholelithiasis but small amount of sludge consider possibility of acalculous cholecystitis Simple cyst in left kidney Communication: Findings reported to physician in charge Kirby Feliciano M.D. on 09/16/2023 at 1:50 PM
[2023-09-16 10:26] LABS: MANUAL DIFF FLAG NO
[2023-09-16 10:28] LABS: Basophils Percent Auto 0.6 % (0-2); Eosinophils Percent Auto 0.6 % (0-4); Hematocrit 44.1 % (42.0-52.0); Hemoglobin 15.3 g/dl (14.0-18.0); Imm Gran Abs Auto 0.01 X10*3/uL (0.00-0.03); Imm Gran Pct Auto 0.1 % (0.0-0.4); Lymphocytes Absolute Auto 1.5 X10*3/uL (1.2-4.9); Lymphocytes Percent Auto 21.1 % (20-40); Mean Corpuscular HGB Conc 34.7 g/dl (31.0-36.0); Mean Corpuscular Hemoglobin 30.5 pg (27.0-33.0); Mean Corpuscular Volume 87.8 fL (80.0-98.0); Mean Platelet Volume 9.8 fL (9.4-12.4); Monocytes Absolute Auto 0.5 X10*3/uL (0.1-1.2); Monocytes Percent Auto 6.8 % (2-11); Neutrophils Percent Auto 70.8 % (45-73); Platelet Count 223 X10*3/uL (160-400); Red Blood Count 5.02 X10*6/uL (4.60-5.80); Red Cell Distribution Width 13.7 % (11.0-16.0); White Blood Count 7.1 X10*3/uL (4.8-10.8)
--- NOTE | 2023-09-16 10:28 | PC.NURSE ---
patient arrives ambulatory through external triage, with cc off abdominal pain for the last few days, denies nausea or vomiting, states he has a history of hepatitis C and has been treated in the past for it, endorsing pain in his right upper quadrant that wraps around to his back, states the pain woke him up from his sleep and thats when he decided to come in to be seen today. patient endorsing some pain to palpation to RUQ, abdomen not distended, and soft to palpation, BS present in all four quadrants, patient states last bowel movement was a few days ago and it was small, probably because i havent been able to eat much patient states he has had poor PO intake recently and has lost some weight. LSCTA, endorsing regular voiding patterns. denies ETOH use or substance use, but states he is a pack a day smoker. 18g IV placed in RAC. blood work drawn and sent to lab, EKG completed by this RN, patient placed on tele, NSR noted, VSS at this time. patient educated on need for urine sample. awaiting MD quesada at this time
[2023-09-16 10:44] LABS: Alanine Aminotransferase 23 U/L (0-40); Albumin Level 4.6 g/dL (3.5-5.0); Alkaline Phosphatase 77 U/L (39-117); Anion Gap 13 (12-20); Aspartate Amino Transferase 22 U/L (5-37); Aspartate Amino Transferase 23 U/L (5-37); Bilirubin Direct 0.2 mg/dL (0.0-0.5); Bilirubin Total 0.6 mg/dL (0.0-1.0); Bilirubin Total 0.7 mg/dL (0.0-1.0); Blood Urea Nitrogen 11 mg/dL (9-16); Calcium 9.8 mg/dL (8.4-10.2); Carbon Dioxide 21 mmol/L (22-29); Chloride 108 mmol/L (96-108); Estimated Glomerular Filt Rate > 60; Glucose Random 105 mg/dL (60-115); Lipase 11 U/L (8-78); Potassium 4.3 mmol/L (3.3-5.1); Sodium 138 mmol/L (135-145); Total Protein 7.5 g/dL (6.5-8.0); Total Protein 7.6 g/dL (6.5-8.0)
[2023-09-16] MEDS: 0.9 % Sodium Chloride 1,000 ML 999 ML IV (11:39)
[2023-09-16 11:41] LABS: Appearance Urine Clear; Color Urine Yellow; Glucose Urine UA Negative (Negative); Leukocyte Esterase Urine Negative (Negative); Nitrite Urine Negative (Negative); Specific Gravity - Urine 1.015 (1.005-1.025); Urine Blood Negative (Negative); Urine Ketones Trace mg/dL (Negative); Urine Protein Negative (Neg-Trace)
--- NOTE | 2023-09-16 11:53 | MHC.EDTECH ---
pt vital signs take, pt reports ABD pin 09/09, needs to go to the bathroom, urinal given, call barajas within reach.
--- NOTE | 2023-09-16 12:33 | ED.ABDPAIN ---
HPI - Abdominal Pain General Chief Complaint: Abdominal Pain Stated Complaint: gallbladder issues ? Time Seen by Provider: 09/16/23 11:05 Source: patient Mode of arrival: ambulatory Limitations: no limitations History of Present Illness HPI narrative: 68-year-old male presents emergency room complaining of abdominal pain. Patient states he has had right upper quadrant abdominal pain for the past several days. Related Data Home Medications ?Medication ?Instructions ?Recorded ?Confirmed gabapentin 300 mg capsule 600 mg PO TID 10/17/22 09/02/23 venlafaxine 75 mg capsule,extended 75 mg PO QAM 10/17/22 09/02/23 release 24 hr Previous Rx's ?Medication ?Instructions ?Recorded rosuvastatin 5 mg tablet 5 mg PO DAILY #90 tabs 08/20/23 tamsulosin 0.4 mg capsule 0.4 mg PO BEDTIME 90 days #90 caps 09/02/23 Allergies Allergy/AdvReac Type Severity Reaction Status Date / Time No Known Allergies Allergy Verified 09/16/23 10:00 Review of Systems Review of Systems Review of systems: General: Patient denies any fever chills recent illness or falls Musculoskeletal: Denies back pain or body aches or other injuries HEENT: denies headache, runny nose, ear pain Respiratory: denies shortness of breath, cough Cardiovascular: no chest pain or palpitations : denies dysuria, frequency Abdomen: no nausea vomiting he does have RUQ abdominal pain Extremities: no swelling, no pain Skin: no diaphoresis Yes all other systems are reviewed and are negative PMFSH Past Medical History Medical History (Updated 09/16/23 @ 14:25 by Kirby Feliciano DO) Diverticulosis Tubular adenoma of colon Urinary hesitancy due to benign prostatic hyperplasia Urinary incontinence, urge Nail discoloration Chronic low back pain with sciatica Hx of type B viral hepatitis Impaired fasting glucose Dyslipidemia Vitamin D deficiency Degenerative disc disease, lumbar Hx of hepatitis C Overweight Not ready to quit smoking Depression with anxiety Surgical History (Updated 08/06/23 @ 12:59 by HUANG Bojorquez) Hx of colonoscopy H/O lumbar discectomy Family History Family History Father No problems noted. Mother No problems noted. Brother No problems noted. Son No problems noted. Sister Substance use disorder Mental health disorder Sister No problems noted. Social History Social History Housing: House Alcohol intake: former Patient Tobacco Use Status: Current everyday Tobacco user Tobacco use type: Cigarette Cigarette Packs Per Day: 1 Smoked in Last 30 Days: Yes e-Cigarette/Vaping Use: Never Used Use of substances other than those prescribed or required for medical reasons: No Advance Directives: Yes Advance Directives Information Provided: Yes Advance Directives on File: No Do you have a plan to hurt others: No Plan service: No Current occupational status: employed Cognitive needs: No Hearing needs: No Vision needs: Yes Physical Exam ED Vital Signs: Vital Signs - 24 hr 09/16/23 09:57 09/16/23 10:30 09/16/23 11:51 Temperature 97.8 F 97.8 F 98.4 F Pulse Rate 81 72 70 Respiratory Rate 18 16 11 L Blood Pressure 138/87 132/86 139/90 H Pulse Oximetry 94 94 99 Oxygen Delivery Method Room Air Room Air Room Air BMI result Body Mass Index 26.4 Course Course Course Narrative: I got a call from Dr. Feliciano from radiology has sludge and the wall was slightly large no stones with positive wyatt sign. Patient is pretty tender on exam. She thinks this is acute cholecystits. I consulted Surgery Dr. Trujillo. Who agrees and will add to the OR and admit. Medical Decision Making Medical Decision Making [facility] Narrative: I will check labs EKG I do not think the patient needs troponin since he has no chest pain of patient Toradol fluids and sent for ultrasound. 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 Lab Data [facility] Lab Attestation statement: I reviewed the patient's lab results. 09/16/23 10:21 09/16/23 10:21 Labs: Lab Results 09/16/23 09/16/23 09/16/23 Range/Units 10:21 10:21 10:21 WBC 7.1 (4.8-10.8) X10*3/uL RBC 5.02 (4.60-5.80) X10*6/uL Hgb 15.3 (14.0-18.0) g/dl Hct 44.1 (42.0-52.0) % MCV 87.8 (80.0-98.0) fL MCH 30.5 (27.0-33.0) pg MCHC 34.7 (31.0-36.0) g/dl RDW 13.7 (11.0-16.0) % Plt Count 223 (160-400) X10*3/uL MPV 9.8 (9.4-12.4) fL Immature Gran % (Auto) 0.1 (0.0-0.4) % Neut % (Auto) 70.8 (45-73) % Lymph % (Auto) 21.1 (20-40) % [place] % (Auto) 6.8 (2-11) % Eos % (Auto) 0.6 (0-4) % Baso % (Auto) 0.6 (0-2) % Lymph # (Auto) 1.5 (1.2-4.9) X10*3/uL [place] # (Auto) 0.5 (0.1-1.2) X10*3/uL Eos # (Auto) 0.0 (0.0-0.4) X10*3/uL Baso # (Auto) 0.0 (0.0-0.2) X10*3/uL Abs Immat Gran (auto) 0.01 (0.00-0.03) X10*3/uL Absolute Neuts (auto) 5.0 (2.0-8.3) x10*3/uL Absolute Nucleated RBC 0.000 (0.0-0.012) X10*3/uL Nucleated RBC % (auto) 0.0 (0.0-0.2) /100WBC Sodium 138 (135-145) mmol/L Potassium 4.3 (3.3-5.1) mmol/L Chloride 108 (96-108) mmol/L Carbon Dioxide 21 L (22-29) mmol/L Anion Gap 13 (12-20) BUN 11 (9-16) mg/dL Creatinine 1.00 (0.5-1.4) mg/dL Estim Creat Clear Calc 81.0 Estimated GFR > 60 Random Glucose 105 (60-115) mg/dL Calcium 9.8 (8.4-10.2) mg/dL Total Bilirubin 0.6 0.7 (0.0-1.0) mg/dL Direct Bilirubin 0.2 (0.0-0.5) mg/dL AST 22 23 (5-37) U/L ALT 23 (0-40) U/L Alkaline Phosphatase (39-117) U/L Total Protein (6.5-8.0) g/dL Albumin (3.5-5.0) g/dL Lipase (8-78) U/L Urine Color Urine Appearance Urine pH (5.0-9.0) Ur Specific [place] (1.005-1.025) Urine Protein (Neg-Trace) mg/dL Urine Glucose (UA) (Negative) mg/dL Urine Ketones (Negative) mg/dL Urine Blood (Negative) Urine Nitrite (Negative) Ur Leukocyte Esterase (Negative) 09/16/23 09/16/23 09/16/23 Range/Units 10:21 10:21 10:21 WBC (4.8-10.8) X10*3/uL RBC (4.60-5.80) X10*6/uL Hgb (14.0-18.0) g/dl Hct (42.0-52.0) % MCV (80.0-98.0) fL MCH (27.0-33.0) pg MCHC (31.0-36.0) g/dl RDW (11.0-16.0) % Plt Count (160-400) X10*3/uL MPV (9.4-12.4) fL Immature Gran % (Auto) (0.0-0.4) % Neut % (Auto) (45-73) % Lymph % (Auto) (20-40) % Kidder % (Auto) (2-11) % Eos % (Auto) (0-4) % Baso % (Auto) (0-2) % Lymph # (Auto) (1.2-4.9) X10*3/uL [place]der # (Auto) (0.1-1.2) X10*3/uL Eos # (Auto) (0.0-0.4) X10*3/uL Baso # (Auto) (0.0-0.2) X10*3/uL Abs Immat Gran (auto) (0.00-0.03) X10*3/uL Absolute Neuts (auto) (2.0-8.3) x10*3/uL Absolute Nucleated RBC (0.0-0.012) X10*3/uL Nucleated RBC % (auto) (0.0-0.2) /100WBC Sodium (135-145) mmol/L Potassium (3.3-5.1) mmol/L Chloride (96-108) mmol/L Carbon Dioxide (22-29) mmol/L Anion Gap (12-20) BUN (9-16) mg/dL Creatinine (0.5-1.4) mg/dL Estim Creat Clear Calc Estimated GFR Random Glucose (60-115) mg/dL Calcium (8.4-10.2) mg/dL Total Bilirubin (0.0-1.0) mg/dL Direct Bilirubin (0.0-0.5) mg/dL AST (5-37) U/L ALT 23 (0-40) U/L Alkaline Phosphatase 77 77 (39-117) U/L Total Protein 7.6 7.5 (6.5-8.0) g/dL Albumin 4.6 (3.5-5.0) g/dL Lipase (8-78) U/L Urine Color Urine Appearance Urine pH (5.0-9.0) Ur Specific [place] (1.005-1.025) Urine Protein (Neg-Trace) mg/dL Urine Glucose (UA) (Negative) mg/dL Urine Ketones (Negative) mg/dL Urine Blood (Negative) Urine Nitrite (Negative) Ur Leukocyte Esterase (Negative) 09/16/23 09/16/23 Range/Units 10:21 11:31 WBC (4.8-10.8) X10*3/uL RBC (4.60-5.80) X10*6/uL Hgb (14.0-18.0) g/dl Hct (42.0-52.0) % MCV (80.0-98.0) fL MCH (27.0-33.0) pg MCHC (31.0-36.0) g/dl RDW (11.0-16.0) % Plt Count (160-400) X10*3/uL MPV (9.4-12.4) fL Immature Gran % (Auto) (0.0-0.4) % Neut % (Auto) (45-73) % Lymph % (Auto) (20-40) % [place] % (Auto) (2-11) % Eos % (Auto) (0-4) % Baso % (Auto) (0-2) % Lymph # (Auto) (1.2-4.9) X10*3/uL [place] # (Auto) (0.1-1.2) X10*3/uL Eos # (Auto) (0.0-0.4) X10*3/uL Baso # (Auto) (0.0-0.2) X10*3/uL Abs Immat Gran (auto) (0.00-0.03) X10*3/uL Absolute Neuts (auto) (2.0-8.3) x10*3/uL Absolute Nucleated RBC (0.0-0.012) X10*3/uL Nucleated RBC % (auto) (0.0-0.2) /100WBC Sodium (135-145) mmol/L Potassium (3.3-5.1) mmol/L Chloride (96-108) mmol/L Carbon Dioxide (22-29) mmol/L Anion Gap (12-20) BUN (9-16) mg/dL Creatinine (0.5-1.4) mg/dL Estim Creat Clear Calc Estimated GFR Random Glucose (60-115) mg/dL Calcium (8.4-10.2) mg/dL Total Bilirubin (0.0-1.0) mg/dL Direct Bilirubin (0.0-0.5) mg/dL AST (5-37) U/L ALT (0-40) U/L Alkaline Phosphatase (39-117) U/L Total Protein (6.5-8.0) g/dL Albumin 4.6 (3.5-5.0) g/dL Lipase 11 (8-78) U/L Urine Color Yellow Urine Appearance Clear Urine pH 6.0 (5.0-9.0) Ur Specific [place] 1.015 (1.005-1.025) Urine Protein Negative (Neg-Trace) mg/dL Urine Glucose (UA) Negative (Negative) mg/dL Urine Ketones Trace (Negative) mg/dL Urine Blood Negative (Negative) Urine Nitrite Negative (Negative) Ur Leukocyte Esterase Negative (Negative) Independent Interpretation I performed an independent interpretation of an: EKG Interpretation: Rate 75 normal sinus rhythm normal intervals no signs of ischemia unchanged from previous interpreted by me Radiology Impression Discussion of test interpretation with radiology: I have reviewed the radiologist's reading. Independent Historian Clinical information obtained from an independent historian. History obtained from or confirmed by: Other External Record Review External record reviewed: Inpatient record, Office record and Outpatient record Medications Administered Discontinued Medications Generic Name Dose Route Start Last Admin Trade Name Freq PRN Reason Stop Dose Admin Acetaminophen 650 mg 09/16/23 12:38 09/16/23 13:09 Acetaminophen 325 Mg Tablet PO 09/16/23 12:39 650 mg ONCE ONE Administration Al Hydroxide/Mg Hydroxide 30 ml 09/16/23 12:38 09/16/23 13:08 Magnesium Hydrox/Alum Hydrox 30 Ml Oral.Susp PO 09/16/23 12:39 30 ml ONCE ONE Administration Famotidine 20 mg 09/16/23 12:38 09/16/23 13:11 Famotidine 20 Mg Tablet PO 09/16/23 12:39 20 mg ONCE ONE Administration Sodium Chloride 1,000 mls @ 999 mls/hr 09/16/23 11:15 09/16/23 13:10 Ns IV 09/16/23 12:15 Infused .Q1H1M MICHELLE Infusion Ketorolac Tromethamine 15 mg 09/16/23 12:38 09/16/23 13:08 Ketorolac Tromethamine 30 Mg/Ml Vial IM 09/16/23 12:39 15 mg ONCE ONE Administration Discharge Plan Discharge Clinical Impression: Acute cholecystitis, Abdominal pain Patient Disposition: Admitted As Inpatient Prescriptions: No Action rosuvastatin 5 mg tablet 5 mg PO DAILY Qty: 90 1RF venlafaxine 75 mg capsule,extended release 24hr 75 mg PO QAM gabapentin 300 mg capsule 600 mg PO TID tamsulosin 0.4 mg capsule 0.4 mg PO BEDTIME 90 Days Qty: 90 1RF Print Language: Greek
[2023-09-16] MEDS: Magnesium Hydrox/Alum Hydrox 30 ML ORAL.SUSP PO (13:08)
[2023-09-16] MEDS: Ketorolac Tromethamine 30 MG/ML VIAL 15 MG IM (13:08)
[2023-09-16] MEDS: Acetaminophen 325 MG TABLET 650 MG PO (13:09)
[2023-09-16] MEDS: Famotidine 20 MG TABLET PO (13:11)
--- NOTE | 2023-09-16 14:49 | PHA.MEDREC ---
Pharmacy Consult ? Medication Reconciliation Pharmacy has completed the medication reconciliation. Spoke with patient at the bedside, stated he started his 7-day course of antibiotics on Friday. Stated he never got his mid day dose of gabapentin. lastly, he confirmed that he took his tamulosin this morning despite typically taking it at night.
[2023-09-16] MEDS: Piperacillin Sodium/Tazobactam 4.5 GM in 0.9 % Sodium Chloride 100 ML IV (15:25)
--- NOTE | 2023-09-16 15:36 | PC.NURSE ---
Patient currently on oral antibiotics for tooth infection. Anesthesia Dr. Santos and Dr. Trujillo at bedside and aware.
[2023-09-16] MEDS: Lactated Ringers 1,000 ML 80 ML IVCONT (15:37)
--- NOTE | 2023-09-16 15:51 | PM.HPGS ---
History of Present Illness History of Present Illness Date of Service: 09/16/23 Chief complaint: Abdo pain Narrative: Emanuel Mills is a 68 year old male with a 2 day history of right upper quadrant pain radiating to his back with a little bit of nausea but no vomiting. He denies any fevers or chills. He has never had pain like this before. He was concerned that it could be secondary to some antibiotics he was taking for a tooth infection or some of his prostate medication. However when the pain continued he came into the emergency room this morning. Here he was tender in the right upper quadrant and so right upper quadrant ultrasound was carried out which revealed some pericholecystic fluid some thickening of the gallbladder some sludge present. Common bile duct was normal in size. White count and LFTs were all normal. He denies any other symptoms of concern. Review of Systems Review of Systems: Yes all other systems are reviewed and are negative [facility] Past Medical History Medical History (Updated 09/16/23 @ 14:25 by Kirby Feliciano DO) Diverticulosis Tubular adenoma of colon Urinary hesitancy due to benign prostatic hyperplasia Urinary incontinence, urge Nail discoloration Chronic low back pain with sciatica Hx of type B viral hepatitis Impaired fasting glucose Dyslipidemia Vitamin D deficiency Degenerative disc disease, lumbar Hx of hepatitis C Overweight Not ready to quit smoking Depression with anxiety Family History Family History Father No problems noted. Mother No problems noted. Brother No problems noted. Son No problems noted. Sister Substance use disorder Mental health disorder Sister No problems noted. Surgical History Surgical History (Updated 09/16/23 @ 15:36 by Melinda Gaines) S/P hernia surgery H/O hand surgery Hx of colonoscopy H/O lumbar discectomy Social History Social History Housing: House Alcohol intake: former Patient Tobacco Use Status: Current everyday Tobacco user Tobacco use type: Cigarette Cigarette Packs Per Day: 1 Cigarettes Per Day: 20.0 Years Smoked: 50 Smoked in Last 30 Days: Yes e-Cigarette/Vaping Use: Never Used Use of substances other than those prescribed or required for medical reasons: No Are you DNR?: No Advance Directives: Yes Advance Directives Information Provided: Yes Advance Directives on File: No Advance Directives Date on File: 09/16/23 Do you have a plan to hurt others: No Plan service: No Current occupational status: employed Cognitive needs: No Hearing needs: No Vision needs: Yes Meds Allergies Allergy/AdvReac Type Severity Reaction Status Date / Time No Known Allergies Allergy Verified 09/16/23 15:08 Active Medications: Current Medications Acetaminophen (Acetaminophen 325 Mg Tablet) 650 mg PO Q6H PRN PRN Reason: Pain, Mild (Pain Scale 1-3), fever or headache Calcium Carbonate (Calcium Carbonate 750 Mg Tab.Chew) 750 mg PO Q4H PRN PRN Reason: Heartburn Sodium Chloride (Ns) 1,000 mls @ 100 mls/hr IVCONT .Q10H MICHELLE Lactated Ringer's (Lr) 1,000 mls @ 80 mls/hr IVCONT .[id number] [facility] Last Admin: 09/16/23 15:37 Dose: 80 mls/hr Magnesium Hydroxide (Milk Of Magnesia 30 Ml Oral.Susp) 30 ml PO DAILY PRN PRN Reason: Constipation Melatonin (Melatonin 3 Mg Tablet) 6 mg PO BEDTIME PRN PRN Reason: Insomnia Morphine Sulfate (Morphine Sulfate 4 Mg/Ml Cartridge) 3 mg IVPUSH RQ4H PRN; Protocol PRN Reason: Pain, Severe (Pain Scale 7-10) Ondansetron HCl (Ondansetron Hcl 4 Mg/2 Ml Vial) 4 mg IVPUSH Q8H PRN PRN Reason: Nausea and Vomiting Sodium Chloride (0.9 % Sodium Chloride Flush 3 Ml Syringe) [address] [facility] Home Medications ?Medication ?Instructions ?Recorded ?Confirmed ?Last Taken ?Type gabapentin 300 mg capsule 600 mg PO TID 10/17/22 09/16/23 09/16/23 History venlafaxine 75 mg capsule,extended 75 mg PO DAILY 10/17/22 09/16/23 09/16/23 History release 24 hr Lactobacillus rhamnosus GG 10 1 cap PO DAILY 09/16/23 09/16/23 Unknown History billion cell capsule (Culturelle) amoxicillin 500 mg capsule 500 mg PO TID 09/16/23 09/16/23 09/16/23 History ketoconazole 2 % topical cream 1 appl topical BID PRN Rash 09/16/23 09/16/23 Unknown History multivitamin 1 tab PO DAILY 09/16/23 09/16/23 Unknown History rosuvastatin 5 mg tablet 5 mg PO BEDTIME 09/16/23 09/16/23 09/16/23 History Physical Exam Vital Signs: Vital Signs: Last Vital Signs Temp 97.1 F 09/16/23 15:08 Pulse 67 09/16/23 15:08 Resp 16 09/16/23 15:08 BP 132/89 09/16/23 15:08 Pulse Ox 99 09/16/23 15:08 O2 Del Method Room Air 09/16/23 15:08 BMI result Body Mass Index 26.4 Const: General: cooperative, healthy appearing, comfortable and no acute distress Orientation/consciousness: oriented to person, oriented to place and oriented to time Eyes: Other: Nonicteric Resp: Effort & Inspection: normal respiratory effort and able to speak in complete sentences Auscultation: clear to auscultation bilaterally Cardio: Rate: regular rate Rhythm: regular rhythm GI: Other: Abdomen is soft nondistended tender in the right upper quadrant with some mild guarding no rebound no peritoneal signs active bowel sounds no masses Skin: Other: Nonicteric Neuro: General: oriented to person, oriented to place and oriented to time Results Results Labs: Short CBC 09/16/23 Range/Units 10:21 WBC 7.1 (4.8-10.8) X10*3/uL Hgb 15.3 (14.0-18.0) g/dl Hct 44.1 (42.0-52.0) % Plt Count 223 (160-400) X10*3/uL BMP 09/16/23 10:21 Sodium 138 Potassium 4.3 Chloride 108 Carbon Dioxide 21 L BUN 11 Creatinine 1.00 Calcium 9.8 Liver Function 09/16/23 09/16/23 09/16/23 Range/Units 10:21 10:21 10:21 Total Bilirubin 0.6 0.7 (0.0-1.0) mg/dL Direct Bilirubin 0.2 (0.0-0.5) mg/dL AST 22 23 (5-37) U/L ALT 23 (0-40) U/L Alkaline Phosphatase (39-117) U/L Albumin (3.5-5.0) g/dL 09/16/23 09/16/23 09/16/23 Range/Units 10:21 10:21 10:21 Total Bilirubin (0.0-1.0) mg/dL Direct Bilirubin (0.0-0.5) mg/dL AST (5-37) U/L ALT 23 (0-40) U/L Alkaline Phosphatase 77 77 (39-117) U/L Albumin 4.6 4.6 (3.5-5.0) g/dL Urine 09/16/23 Range/Units 11:31 Urine Color Yellow Urine Appearance Clear Urine pH 6.0 (5.0-9.0) Ur Specific [place] 1.015 (1.005-1.025) Urine Protein Negative (Neg-Trace) mg/dL Urine Glucose (UA) Negative (Negative) mg/dL Abdominal ultrasound report/results: report reviewed Assessment and Plan (1) Acute cholecystitis: Status: Acute Plan 68-year-old male with a 2 day history of right upper quadrant pain some nausea no vomiting comes into the emergency room LFTs and white count normal but tender no right upper quadrant and ultrasound confirming sludge thickening some mild pericholecystic fluid. Patient most likely with some early cholecystitis. With discussing his case he wants to get his gallbladder out says he does not want to have this pain occur in the future and is agreeable to surgery. Risks and benefits were discussed with the patient including but not limited to bleeding infection possible open procedure possible bowel or other organ injury possible bile duct leak or injury. Despite this the patient wishes to proceed. We will plan on carrying out laparoscopic cholecystectomy this afternoon. NPO IV fluids IV antibiotics Quality Stroke Does the patient have a stroke diagnosis?: No VTE Prior VTE?: No VTE Risk Level:: Surgical - low VTE Device Contraindication: Treatment Not Indicated VTE Drug Contraindication: Treatment Not Indicated Procedures Date of Service Date of Service: 09/16/23
--- NOTE | 2023-09-16 16:28 | HO.ANESPROP2 ---
HPI - Anesthesia Eval Consult details Narrative: 68 M w/ acute cholecystitis PMFSH Active Problems Active Problems: All Active Problems Abdominal pain (Acute) Acute cholecystitis (Acute) RUQ abdominal pain (Acute) Impacted cerumen, left ear (Acute) Diverticulosis (Acute) Tubular adenoma of colon (Acute) Urinary hesitancy due to benign prostatic hyperplasia (Acute) Urinary incontinence, urge (Acute) Chronic low back pain with sciatica (Acute) Impaired fasting glucose (Acute) Dyslipidemia (Acute) Degenerative disc disease, lumbar (Acute) Overweight (Acute) Not ready to quit smoking (Acute) Depression with anxiety (Acute) Past Medical History Medical History Diverticulosis Tubular adenoma of colon Urinary hesitancy due to benign prostatic hyperplasia Urinary incontinence, urge Nail discoloration Chronic low back pain with sciatica Hx of type B viral hepatitis Impaired fasting glucose Dyslipidemia Vitamin D deficiency Degenerative disc disease, lumbar Hx of hepatitis C Overweight Not ready to quit smoking Depression with anxiety Family History Family History Father No problems noted. Mother No problems noted. Brother No problems noted. Son No problems noted. Sister Substance use disorder Mental health disorder Sister No problems noted. Family history of problems with anesthesia: No Surgical History Surgical History S/P hernia surgery H/O hand surgery Hx of colonoscopy H/O lumbar discectomy History of Problems with Anesthesia: No Social History Social History Housing: House Alcohol intake: former Patient Tobacco Use Status: Current everyday Tobacco user Tobacco use type: Cigarette Cigarette Packs Per Day: 1 Cigarettes Per Day: 20.0 Years Smoked: 50 Smoked in Last 30 Days: Yes e-Cigarette/Vaping Use: Never Used Use of substances other than those prescribed or required for medical reasons: No Are you DNR?: No Advance Directives: Yes Advance Directives Information Provided: Yes Advance Directives on File: No Advance Directives Date on File: 09/16/23 Do you have a plan to hurt others: No Plan service: No Current occupational status: employed Cognitive needs: No Hearing needs: No Vision needs: Yes Meds Allergies Allergy/AdvReac Type Severity Reaction Status Date / Time No Known Allergies Allergy Verified 09/16/23 15:08 Active Medications: Current Medications Acetaminophen (Acetaminophen 325 Mg Tablet) 650 mg PO Q6H PRN PRN Reason: Pain, Mild (Pain Scale 1-3), fever or headache Calcium Carbonate (Calcium Carbonate 750 Mg Tab.Chew) 750 mg PO Q4H PRN PRN Reason: Heartburn Sodium Chloride (Ns) 1,000 mls @ 100 mls/hr IVCONT .Q10H MICHELLE Lactated Ringer's (Lr) 1,000 mls @ 80 mls/hr IVCONT .[id number] [facility] Last Admin: 09/16/23 15:37 Dose: 80 mls/hr Magnesium Hydroxide (Milk Of Magnesia 30 Ml Oral.Susp) 30 ml PO DAILY PRN PRN Reason: Constipation Melatonin (Melatonin 3 Mg Tablet) 6 mg PO BEDTIME PRN PRN Reason: Insomnia Morphine Sulfate (Morphine Sulfate 4 Mg/Ml Cartridge) 3 mg IVPUSH RQ4H PRN; Protocol PRN Reason: Pain, Severe (Pain Scale 7-10) Ondansetron HCl (Ondansetron Hcl 4 Mg/2 Ml Vial) 4 mg IVPUSH Q8H PRN PRN Reason: Nausea and Vomiting Sodium Chloride (0.9 % Sodium Chloride Flush 3 Ml Syringe) 3 ml IVFLUSH QSHIFT [facility] Home Medications ?Medication ?Instructions ?Recorded ?Confirmed ?Last Taken ?Type gabapentin 300 mg capsule 600 mg PO TID 10/17/22 09/16/23 09/16/23 History venlafaxine 75 mg capsule,extended 75 mg PO DAILY 10/17/22 09/16/23 09/16/23 History release 24 hr Lactobacillus rhamnosus GG 10 1 cap PO DAILY 09/16/23 09/16/23 Unknown History billion cell capsule (Culturelle) amoxicillin 500 mg capsule 500 mg PO TID 09/16/23 09/16/23 09/16/23 History ketoconazole 2 % topical cream 1 appl topical BID PRN Rash 09/16/23 09/16/23 Unknown History multivitamin 1 tab PO DAILY 09/16/23 09/16/23 Unknown History rosuvastatin 5 mg tablet 5 mg PO BEDTIME 09/16/23 09/16/23 09/16/23 History Exam Height,Weight and Vital Signs: Height 6 ft 1 in Weight 200 lb Last Vital Signs Temp 97.1 F 09/16/23 15:08 Pulse 67 09/16/23 15:08 Resp 16 09/16/23 15:08 BP 132/89 09/16/23 15:08 Pulse Ox 99 09/16/23 15:08 O2 Del Method Room Air 09/16/23 15:08 Pertinent Lab Results Pertinent Lab Results: Laboratory Tests 09/16/23 09/16/23 09/16/23 10:21 10:21 10:21 WBC 7.1 RBC 5.02 Hgb 15.3 Hct 44.1 MCV 87.8 MCH 30.5 MCHC 34.7 RDW 13.7 Plt Count 223 MPV 9.8 Immature Gran % (Auto) 0.1 Neut % (Auto) 70.8 Lymph % (Auto) 21.1 [place] % (Auto) 6.8 Eos % (Auto) 0.6 Baso % (Auto) 0.6 Lymph # (Auto) 1.5 [place] # (Auto) 0.5 Eos # (Auto) 0.0 Baso # (Auto) 0.0 Abs Immat Gran (auto) 0.01 Absolute Neuts (auto) 5.0 Absolute Nucleated RBC 0.000 Nucleated RBC % (auto) 0.0 Sodium 138 Potassium 4.3 Chloride 108 Carbon Dioxide 21 L Anion Gap 13 BUN 11 Creatinine 1.00 Estim Creat Clear Calc 81.0 Estimated GFR > 60 Random Glucose 105 Calcium 9.8 Total Bilirubin 0.6 0.7 Direct Bilirubin 0.2 AST 22 23 ALT 23 Alkaline Phosphatase Total Protein Albumin Lipase Urine Color Urine Appearance Urine pH Ur Specific [place] Urine Protein Urine Glucose (UA) Urine Ketones Urine Blood Urine Nitrite Ur Leukocyte Esterase 09/16/23 09/16/23 09/16/23 10:21 10:21 10:21 WBC RBC Hgb Hct MCV MCH MCHC RDW Plt Count MPV Immature Gran % (Auto) Neut % (Auto) Lymph % (Auto) [place] % (Auto) Eos % (Auto) Baso % (Auto) Lymph # (Auto) [place] # (Auto) Eos # (Auto) Baso # (Auto) Abs Immat Gran (auto) Absolute Neuts (auto) Absolute Nucleated RBC Nucleated RBC % (auto) Sodium Potassium Chloride Carbon Dioxide Anion Gap BUN Creatinine Estim Creat Clear Calc Estimated GFR Random Glucose Calcium Total Bilirubin Direct Bilirubin AST ALT 23 Alkaline Phosphatase 77 77 Total Protein 7.6 7.5 Albumin 4.6 Lipase Urine Color Urine Appearance Urine pH Ur Specific [place] Urine Protein Urine Glucose (UA) Urine Ketones Urine Blood Urine Nitrite Ur Leukocyte Esterase 09/16/23 09/16/23 10:21 11:31 WBC RBC Hgb Hct MCV MCH MCHC RDW Plt Count MPV Immature Gran % (Auto) Neut % (Auto) Lymph % (Auto) [place] % (Auto) Eos % (Auto) Baso % (Auto) Lymph # (Auto) [place] # (Auto) Eos # (Auto) Baso # (Auto) Abs Immat Gran (auto) Absolute Neuts (auto) Absolute Nucleated RBC Nucleated RBC % (auto) Sodium Potassium Chloride Carbon Dioxide Anion Gap BUN Creatinine Estim Creat Clear Calc Estimated GFR Random Glucose Calcium Total Bilirubin Direct Bilirubin AST ALT Alkaline Phosphatase Total Protein Albumin 4.6 Lipase 11 Urine Color Yellow Urine Appearance Clear Urine pH 6.0 Ur Specific [place] 1.015 Urine Protein Negative Urine Glucose (UA) Negative Urine Ketones Trace Urine Blood Negative Urine Nitrite Negative Ur Leukocyte Esterase Negative Airway Mallampati Class: II TM Dist: >3cm Neck ROM: Full Loose/Missing/Broken Teeth: Yes Assessment and Plan Assessment Anesthesia Assessment: Anesthesia Plan Discussed Final Anesthetic Review Family History of Problems with Anesthesia: No History of Problems with Anesthesia: No NPO: Yes ASA Class: III and Emergency Final Preanesthetic Review: No Changes in Pt Med Stat, Meds/Allgs Chart Reviewed, Consent Obtained/Reviewed and Anes Risks/Benef Reviewed Patient Risk: Intermediate Procedure Risk: Low Anesthetic Plan Anesthetic Plan: GA Disposition: Standard PACU
[2023-09-16] MEDS: ondansetron HCL 4 MG/2 ML VIAL IVPUSH (17:57)
--- NOTE | 2023-09-16 18:05 | W.PM.OPN ---
Operative Note Operative Note Date of Service: 09/16/23 Narrative: Preop diagnosis--acute cholecystitis Postop diagnosis--acute cholecystitis and umbilical hernia Procedure done--laparoscopic cholecystectomy and umbilical hernia repair Surgeon--Ronnie Anesthesia--general endotracheal tube anesthesia Indications--patient is a 68-year-old male who presented with a 2 day history of right upper quadrant pain radiating to his back and workup revealed pericholecystic fluid and tenderness. LFTs were normal. As a result he comes in for laparoscopic cholecystectomy Findings-- acutely inflamed gallbladder and small umbilical hernia Procedure-- Patient was brought to the operative room under Anesthesia guidance was intubated he had compression stockings placed before induction received preoperative antibiotics. His abdomen was prepped and draped in standard surgical fashion an infraumbilical incision was created. The hernia defect was dissected out and the peritoneal cavity entered through this hernia defect. The defect was made a little larger as it was about a cm in order to place Chaidez trocar after pursestring 0 Vicryl suture was placed. Pneumoperitoneum was then established to 15 mmHg pressure. The patient was positioned head up left side down and then 3 5 mm ports were then placed under direct visualization. One was placed in the epigastric area and 2 in the right upper quadrant area. Patient was positioned had up a little more and the gallbladder was identified in the right upper quadrant area. There was a lot of fatty adhesions and it was retracted superiorly and then laterally. A little hole was created and trying to grasp the gallbladder and there was spillage of some bile. With blunt dissection we were able to strip down these omental and fatty adhesions that were a bit bloody and and then identified the cystic duct and the cystic artery. The critical view was obtained here. The triangle of Calot tissue was very fatty and then inflamed so a lot of blunt dissection was carried out here to skeletonize the cystic duct and then the arteries. It was noted there was an anterior branch as well as a posterior branch. With the cystic duct the area was clipped to down and then 1 up and transected. Cystic artery was transected in the similar fashion. In then dissecting out after we had taken down the cystic artery a posterior branch was noted that went straight into the gallbladder and this was also clipped. Cautery was used to take down the gallbladder from the liver bed and it was placed in Endo-Catch bag and removed from the infraumbilical port site pneumoperitoneum was then re-established and about 3 L of irrigation fluid was used to suction out the spilled bile area until look at the liver bed. There was a little bit of a ooze that was noted for awhile in regards to some bleeding in the gallbladder fossa and I think this was just eventually coming from a little bit of the omentum that was bluntly dissected off the gallbladder. After examining the area for awhile and not finding a true bleeder was decided to remove the ports confirming that the cystic duct and cystic artery clips were intact. The infraumbilical pursestring suture was approximated and then 4-0 Monocryl in a subcuticular fashion was used to approximate the skin edges Steri-Strips were placed at the end of the case all sponge instrument needle counts were correct estimated blood loss was about 20 cc. Specimens sent was gallbladder. Patient was returned stable to recovery room after extubation.
[2023-09-16] MEDS: 0.9 % Sodium Chloride 1,000 ML 100 ML IVCONT (18:42)
[2023-09-16] MEDS: Tamsulosin HCL 0.4 MG CAPSULE PO (20:38)
[2023-09-16] MEDS: Atorvastatin Calcium 20 MG TABLET PO (20:38)
[2023-09-16] MEDS: Nicotine 14 MG PATCH.TD24 TRANSDERMA (20:38)
[2023-09-16] MEDS: Morphine Sulfate 4 MG/ML CARTRIDGE 3 MG IVPUSH (20:38)
[2023-09-17] MEDS: 0.9 % Sodium Chloride 1,000 ML 100 ML IVCONT (01:44)
[2023-09-17] MEDS: Morphine Sulfate 4 MG/ML CARTRIDGE 3 MG IVPUSH (01:44)
[2023-09-17 03:55] VITALS: BP 124/70; PULSE 76; RESP 18; TEMP 36.5; O2SAT 95
--- NOTE | 2023-09-17 07:27 | P.PNGS_ITS ---
Subjective Subjective Date of Service: 09/17/23 <Claudia Devi PA-C - Last Filed: 09/17/23 07:31> 09/17/23 <John Ulloa MD - Last Filed: 09/17/23 07:55> Interval history: Feels well this morning, mild soreness at umbilical incision. Tolerating solid diet. OOB to bathroom without difficulty. <Claudia Devi PA-C - Last Filed: 09/17/23 07:31> Physical Exam 2 Vital Signs: Vital Signs: Last Vital Signs Temp 97.7 F 09/17/23 03:55 Pulse 76 09/17/23 03:55 Resp 18 09/17/23 03:55 BP 124/70 09/17/23 03:55 Pulse Ox 95 09/17/23 03:55 O2 Del Method Room Air 09/17/23 03:55 O2 Flow Rate 2 09/16/23 19:57 BMI result Body Mass Index 26.4 <Claudia Devi PA-C - Last Filed: 09/17/23 07:31> Const: General: comfortable, no acute distress and alert <Claudia Devi PA-C - Last Filed: 09/17/23 07:31> Orientation/consciousness: patient oriented x3 <Claudia Devi PA-C - Last Filed: 09/17/23 07:31> Resp: Effort & Inspection: normal respiratory effort <Claudia Devi PA-C - Last Filed: 09/17/23 07:31> GI: Inspection: No distended and Yes incision (dressings intact, umbilical dressing slightly stained ) <Claudia Devi PA-C - Last Filed: 09/17/23 07:31> Palpation (GI): Soft to palpation, Tenderness to palpation present (GI) (mild umbilical ) and no guarding <KRISTIAN Galindo Last Filed: 09/17/23 07:31> Percussion: Yes normal to percussion <KRISTIAN Galindo Last Filed: 09/17/23 07:31> Skin: General skin exam: no rashes or lesions noted <KRISTIAN Galindo Last Filed: 09/17/23 07:31> Neuro: General: patient oriented x3 <Claudia Devi PA-C - Last Filed: 09/17/23 07:31> Objective Data Active Medications Acetaminophen (Acetaminophen 325 Mg Tablet) 650 mg PO Q6H PRN PRN Reason: Pain, Mild (Pain Scale 1-3), fever or headache Atorvastatin Calcium (Atorvastatin Calcium 20 Mg Tablet) 20 mg PO BEDTIME [facility] Last Admin: 09/16/23 20:38 Dose: 20 mg Documented By: RONA Calcium Carbonate (Calcium Carbonate 750 Mg Tab.Chew) 750 mg PO Q4H PRN PRN Reason: Heartburn Sodium Chloride (Ns) 1,000 mls @ 100 mls/hr IVCONT .Q10H [facility] Last Admin: 09/17/23 01:44 Dose: 100 mls/hr Documented By: RONA Magnesium Hydroxide (Milk Of Magnesia 30 Ml Oral.Susp) 30 ml PO DAILY PRN PRN Reason: Constipation Melatonin (Melatonin 3 Mg Tablet) 6 mg PO BEDTIME PRN PRN Reason: Insomnia Morphine Sulfate (Morphine Sulfate 4 Mg/Ml Cartridge) 3 mg IVPUSH RQ4H PRN; Protocol PRN Reason: Pain, Severe (Pain Scale 7-10) Last Admin: 09/17/23 01:44 Dose: 3 mg Documented By: RONA Nicotine (Nicotine 14 Mg Patch.Td24) 14 mg TRANSDERMA DAILY [facility] Last Admin: 09/16/23 20:38 Dose: 14 mg Documented By: RONA Ondansetron HCl (Ondansetron Hcl 4 Mg/2 Ml Vial) 4 mg IVPUSH Q8H PRN PRN Reason: Nausea and Vomiting Oxycodone HCl (Oxycodone Hcl Immed Release 5 Mg Tablet) 10 mg PO Q4H PRN PRN Reason: Pain, Moderate(Pain Scale 4-6) Sodium Chloride (0.9 % Sodium Chloride Flush 3 Ml Syringe) 3 ml IVFLUSH QSHIFT [facility] Last Admin: 09/17/23 00:07 Dose: Not Given Documented By: RONA Non-Admin Reason: IV Running Tamsulosin HCl (Tamsulosin Hcl 0.4 Mg Capsule) 0.4 mg PO BEDTIME [facility] Last Admin: 09/16/23 20:38 Dose: 0.4 mg Documented By: RONA Venlafaxine HCl (Venlafaxine Hcl Er 75 Mg Cap.Er.24h) 75 mg PO DAILY [facility] <Claudia Devi PA-C - Last Filed: 09/17/23 07:31> Labs CBC & Chem 7: 09/16/23 10:21 09/16/23 10:21 <Claudia Devi PA-C - Last Filed: 09/17/23 07:31> Labs: Laboratory Results - last 24 hr 09/16/23 09/16/23 09/16/23 10:21 10:21 10:21 MCV 87.8 MCH 30.5 MCHC 34.7 RDW 13.7 Plt Count 223 MPV 9.8 Immature Gran % (Auto) 0.1 Neut % (Auto) 70.8 Lymph % (Auto) 21.1 [place] % (Auto) 6.8 Eos % (Auto) 0.6 Baso % (Auto) 0.6 Lymph # (Auto) 1.5 [place] # (Auto) 0.5 Eos # (Auto) 0.0 Baso # (Auto) 0.0 Abs Immat Gran (auto) 0.01 Absolute Neuts (auto) 5.0 Absolute Nucleated RBC 0.000 Nucleated RBC % (auto) 0.0 Anion Gap 13 Estim Creat Clear Calc 81.0 Estimated GFR > 60 Random Glucose 105 Calcium 9.8 Total Bilirubin 0.6 0.7 Direct Bilirubin 0.2 AST 22 23 ALT 23 Alkaline Phosphatase Total Protein Albumin Lipase Urine Color Urine Appearance Urine pH Ur Specific [place] Urine Protein Urine Glucose (UA) Urine Ketones Urine Blood Urine Nitrite Ur Leukocyte Esterase 09/16/23 09/16/23 09/16/23 10:21 10:21 10:21 MCV MCH MCHC RDW Plt Count MPV Immature Gran % (Auto) Neut % (Auto) Lymph % (Auto) [place] % (Auto) Eos % (Auto) Baso % (Auto) Lymph # (Auto) [place] # (Auto) Eos # (Auto) Baso # (Auto) Abs Immat Gran (auto) Absolute Neuts (auto) Absolute Nucleated RBC Nucleated RBC % (auto) Anion Gap Estim Creat Clear Calc Estimated GFR Random Glucose Calcium Total Bilirubin Direct Bilirubin AST ALT 23 Alkaline Phosphatase 77 77 Total Protein 7.6 7.5 Albumin 4.6 Lipase Urine Color Urine Appearance Urine pH Ur Specific [place] Urine Protein Urine Glucose (UA) Urine Ketones Urine Blood Urine Nitrite Ur Leukocyte Esterase 09/16/23 09/16/23 10:21 11:31 MCV MCH MCHC RDW Plt Count MPV Immature Gran % (Auto) Neut % (Auto) Lymph % (Auto) [place] % (Auto) Eos % (Auto) Baso % (Auto) Lymph # (Auto) [place] # (Auto) Eos # (Auto) Baso # (Auto) Abs Immat Gran (auto) Absolute Neuts (auto) Absolute Nucleated RBC Nucleated RBC % (auto) Anion Gap Estim Creat Clear Calc Estimated GFR Random Glucose Calcium Total Bilirubin Direct Bilirubin AST ALT Alkaline Phosphatase Total Protein Albumin 4.6 Lipase 11 Urine Color Yellow Urine Appearance Clear Urine pH 6.0 Ur Specific [place] 1.015 Urine Protein Negative Urine Glucose (UA) Negative Urine Ketones Trace Urine Blood Negative Urine Nitrite Negative Ur Leukocyte Esterase Negative <Claudia Devi PA-C - Last Filed: 09/17/23 07:31> Procedures Date of Service Date of Service: 09/17/23 <Claudia Devi PA-C - Last Filed: 09/17/23 07:31> 09/17/23 <John Ulloa MD - Last Filed: 09/17/23 07:55> Progress Note: A&P Assessment and plan (1) Acute cholecystitis: Status: Acute <Claudia Devi PA-C - Last Filed: 09/17/23 07:31> Assessment and Plan: On incision on umbilicus but otherwise feels well Tolerating diet last night Looks well Abdomen soft Okay to DC home later this morning if tolerating breakfast Discharge instructions given to the patient Seen and examined independently <John Ulloa MD - Last Filed: 09/17/23 07:55> (2) S/P laparoscopic cholecystectomy: Status: Acute <Claudia Devi PA-C - Last Filed: 09/17/23 07:31> Assessment and Plan: POD #1 s/p laparoscopic cholecystectomy, umbilical hernia repair. Doing well post op, comfortable and tolerating solid diet. Abd benign with appropriate post op tenderness. Will reassess later this morning, if comfortable on PO analgesics, stable for dc to home. F/u in office in 2 weeks. Educated on no heavy lifting. Patient comfortable with plan. <Claudia Devi PA-C - Last Filed: 09/17/23 07:31> Time Spent With Patient Time: Total time managing care of this patient today ____ minutes. <Claudia Devi PA-C - Last Filed: 09/17/23 07:31> Quality Stroke Does the patient have a stroke diagnosis?: No <Claudia Devi PA-C - Last Filed: 09/17/23 07:31> VTE Prior VTE?: No <Claudia Devi PA-C - Last Filed: 09/17/23 07:31> VTE Risk Level:: Surgical - low <Claudia Devi PA-C - Last Filed: 09/17/23 07:31> VTE Device Contraindication: Treatment Not Indicated <Claudia Devi PA-C - Last Filed: 09/17/23 07:31> VTE Drug Contraindication: Treatment Not Indicated <Claudia Devi PA-C - Last Filed: 09/17/23 07:31>
[2023-09-17 07:38] VITALS: BP 116/67; PULSE 79; RESP 16; TEMP 36.3; O2SAT 95
[2023-09-17] MEDS: oxyCODONE HCl Immed Release 5 MG TABLET 10 MG PO (07:52)
[2023-09-17] MEDS: Nicotine 14 MG PATCH.TD24 TRANSDERMA (07:52)
[2023-09-17] MEDS: Venlafaxine HCl ER 75 MG CAP.ER.24H PO (07:53)
--- NOTE | 2023-09-17 10:19 | HO.POSTANES ---
Post Anesthesia Evaluation Post Anesthesia Evaluation Date of Service: 09/17/23 Vital Signs: Vital Signs Temp Pulse Resp BP Pulse Ox O2 Del Method 09/17/23 07:38 97.4 F 79 16 116/67 95 Room Air 09/17/23 03:55 97.7 F 76 18 124/70 95 Room Air Anesthesia: General Endotracheal-GETA Mental Status: Awake Pain Control: Satisfactory Nausea/Vomiting: None Hydration: Adequate Anesthesia-Related Issues: No Anes. Related Issues
--- NOTE | 2023-09-17 10:38 | MHC.CM.PN ---
pt lives with room mate has own ride home dc plan home no servies
--- NOTE | 2023-09-17 11:33 | P.DS_ITS ---
DS: Providers Provider Date of Service: 09/17/23 Date of admission: 09/16/23 14:24 Date of discharge: 09/17/23 Primary care physician: Maryellen Gregg MD Attending physician on admission: Barbara Trujillo Attending physician on discharge: John Ulloa DS: Diagnosis Discharge Diagnosis (1) Acute cholecystitis: Status: Acute (2) S/P laparoscopic cholecystectomy: Status: Acute DS: Summary Hospital Course Hospital Course: HPI AT ADMISSION: Emanuel Mills is a 68 year old male with a 2 day history of right upper quadrant pain radiating to his back with a little bit of nausea but no vomiting. He denies any fevers or chills. He has never had pain like this before. He was concerned that it could be secondary to some antibiotics he was taking for a tooth infection or some of his prostate medication. However when the pain continued he came into the emergency room this morning. Here he was tender in the right upper quadrant and so right upper quadrant ultrasound was carried out which revealed some pericholecystic fluid some thickening of the gallbladder some sludge present. Common bile duct was normal in size. White count and LFTs were all normal. He denies any other symptoms of concern. HOSPITAL COURSE: The patient was admitted to the surgical service for further treatment of the acute cholecystitis. He elected to proceed with laparoscopic cholecystectomy, possible open. He was added onto the OR schedule for that day. On 09/16/23, a laparoscopic cholecystectomy and repair of umbilical hernia was performed by Dr. Trujillo without complication. The patient tolerated the procedure well. He had an uncomplicated recovery course. On POD #1, he felt well and was tolerating a solid diet without nausea or vomiting, had good pain control and was ambulating without difficulty. He was hemodynamically stable. His abdomen was benign with appropriate post op tenderness and clean and intact dressings. He felt ready for discharge. He was discharged to home on 09/17/23 in stable condition. He is to follow up in the office in 2 weeks. Status at Discharge Functional status at discharge: independent ambulation Overall status at discharge: patient is progressing back to baseline Time Attestation Discharge Coordination Time (in mins): 30 Quality: Safe Use of Opioids Does Pt have an Active Cancer Diagnosis on the Problem List?: No Quality: Stroke Does the patient have a stroke diagnosis?: No Physical Exam Vital Signs: Vital Signs: Last Vital Signs Temp 97.4 F 09/17/23 07:38 Pulse 79 09/17/23 07:38 Resp 16 09/17/23 07:38 BP 116/67 09/17/23 07:38 Pulse Ox 95 09/17/23 07:38 O2 Del Method Room Air 09/17/23 07:38 O2 Flow Rate 2 09/16/23 19:57 BMI result Body Mass Index 26.4 Const: General: comfortable, no acute distress and alert GI: Inspection: No distended and Yes incision (dressings intact ) Palpation (GI): Soft to palpation, Tenderness to palpation present (GI) (mild incisional) and no guarding Skin: General skin exam: no rashes or lesions noted and no jaundice DS: Data Data Completed and Pending Pending studies at discharge: 09/16/23 17:50 Surgical [PTH] Routine Gallbladder, cholecystectomy: Chronic cholecystitis Labs on day of discharge: Laboratory Results - last 24 hr 09/16/23 11:31 Urine Color Yellow Urine Appearance Clear Urine pH 6.0 Ur Specific [place] 1.015 Urine Protein Negative Urine Glucose (UA) Negative Urine Ketones Trace Urine Blood Negative Urine Nitrite Negative Ur Leukocyte Esterase Negative Discharge Plan Discharge Anticipated Discharge Date/Time: 09/17/23 07:04 Patient Disposition: Home, Self-Care Discharge Diagnosis: acute cholecystitis, s/p laparoscopic cholecystectomy and umbilical hernia repair Referrals: Maryellen Gregg MD [Primary Care Provider] - 1 Week John Ulloa MD [Physician] - 2 Weeks Discharge Medications: New docusate sodium [Colace] 100 mg capsule 100 mg PO BID Qty: 30 0RF oxycodone 5 mg tablet 5 mg PO Q4H PRN (Reason: pain (scale score 7-10)) Qty: 24 0RF Rx Instructions: Partial Fill upon patient request. Continued amoxicillin 500 mg capsule 500 mg PO TID Rx Instructions: Started on 09/12/2023 for a seven day course to be complete on 09/19/2023 ketoconazole 2 % cream 1 appl topical BID PRN (Reason: Rash) multivitamin Tablet 1 tab PO DAILY rosuvastatin 5 mg tablet 5 mg PO BEDTIME Culturelle 10 billion cell Capsule 1 cap PO DAILY venlafaxine 75 mg capsule,extended release 24hr 75 mg PO DAILY gabapentin 300 mg capsule 600 mg PO TID tamsulosin 0.4 mg capsule 0.4 mg PO BEDTIME 90 Days Qty: 90 1RF Discharge Orders: Discharge Order (Routine); Ordered 09/17/23 Ordered By: Claudia Devi Diet: Advance to usual diet Activity on Discharge: No heavy lifting Stand Alone Forms: Patient Portal Discharge page Print Language: Pashto Activity Restrictions/Additional Instructions: If the incision area is tender, you may apply an ice pack for short intervals (No more than 20 minutes on, followed by at least 20 minutes off). Do not apply heat. Do not use creams, lotions, or topical antibiotics. Ok to shower. Remove clear dressings 3 days following your procedure. You have steri strips (small white cloth strips) covering your incision- these will fall off ~1 week. No heavy lifting (>10lbs) or strenuous activity! Take Tylenol Extra-strength 1-2 tabs every 6 hours for the first day, then as needed. Oxycodone every 6-8 hours as needed for pain. Colace 100 mg every day as needed for constipation. Follow up in office with Dr. Ulloa in 2 weeks. ([phone]) Call Your Doctor If: -Your temperature exceeds 101.5? F -You experience excessive pain or swelling -You have an unexpected reaction to medication -You have excessive bleeding -You experience continued vomiting/nausea -Your incision begins to separate -Your incision shows signs of infection such as increased redness, swelling, excessive pain, drainage (light blood or clear fluid is normal) or heat Care Plan Goals: Return to baseline health and resume normal activities following recovery pe riod. Health Concerns: acute cholecystitis umbilical hernia Plan of Treatment: s/p laparoscopic cholecystectomy repair of umbilical hernia without mesh Assessment: doing well post op Discharge Date/Time: 09/17/23 11:50
--- NOTE | 2023-09-17 12:14 | MHC.CM.PN ---
PT DCD HOME SELF CARE
== END 2023-09-17 11:50 | disposition home or self-care (01) | DRG 419 ==
LOC: HO.ED 14:29 → HO.EDOVER 14:31 → HO.S3 14:39
PROVIDERS: Admitting Provider Surgery; Emergency Provider Student in an Organized Health Care Education/Training Program; PCP Internal Medicine; Visit Provider Surgery
PROC: 0FT44ZZ Resection of Gallbladder, Percutaneous Endoscopic Approach (ICD-10-PCS; CPT 47562; principal; 2023-09-16 15:30)
DX: K81.0 Acute cholecystitis (principal); K42.9 Umbilical hernia without obstruction or gangrene; F17.210 Nicotine dependence, cigarettes, uncomplicated; Z71.6 Tobacco abuse counseling; Z79.899 Other long term (current) drug therapy
CPT/HCPCS: 36415; 76705; 80053; 80076; 81003; 83690; 85025; 88304; 93005; 99285; J1100; J1170; J1885; J2250; J2270; J2371; J2405; J2543; J2704; J2795; J3010; J7120

== ENCOUNTER → 2023-09-16 10:21 | Outpatient (BNV) | payer MEDICARE, SELFPAY | PROVIDERS: Admitting Provider Surgery; Emergency Provider Student in an Organized Health Care Education/Training Program; PCP Internal Medicine; Visit Provider Internal Medicine Cardiovascular Disease | DX: I49.1 Atrial premature depolarization (principal); K81.0 Acute cholecystitis | CPT/HCPCS: 93010 ==

== ENCOUNTER → 2023-09-16 14:24 | Outpatient (BNV) | payer MEDICARE, SELFPAY | PROVIDERS: Admitting Provider Surgery; Emergency Provider Student in an Organized Health Care Education/Training Program; PCP Internal Medicine; Visit Provider Surgery | DX: K81.0 Acute cholecystitis (principal); Z90.49 Acquired absence of other specified parts of digestive tract | CPT/HCPCS: 47562; 99024; 99222 ==

== ENCOUNTER 2023-09-29 14:19 | Outpatient (AMB) | payer MEDICARE, SELFPAY ==
--- NOTE | 2023-09-29 14:21 | A.OFFVIS_ITS ---
Vital Signs 09/29/23 14:26 Height 6 ft 1 in Weight 197 lb BMI 26.0 BP 108/80 Blood Pressure Location Lt brachial Position Sitting Pulse 107 H Intake Visit Reasons: s/p lap joel~ Dr. Trujillo Intake Note: This patient presents for a post-op assessment status post laparoscopic cholecystectomy and umbilical hernia repair. * Patient c/o; denies any concerns at the time of visit, healing as expected Jig Builder Required: No Accompanied by: Self / Same As Patient Allergies No Known Allergies Allergy (Verified 09/29/23 14:28) HPI HPI s/p lap joel~ Dr. Turjillo: Details: 68-year-old male here for a postop visit. He underwent laparoscopic cholecystectomy with umbilical hernia repair with Dr. Trujillo last 09/17/2023. He tolerated procedure well. He currently denies significant complaints. [facility] Medical History (Updated 09/29/23 @ 14:22 by John Ulloa MD) Hx of cholecystitis Diverticulosis Tubular adenoma of colon Urinary hesitancy due to benign prostatic hyperplasia Urinary incontinence, urge Nail discoloration Chronic low back pain with sciatica Hx of type B viral hepatitis Impaired fasting glucose Dyslipidemia Vitamin D deficiency Degenerative disc disease, lumbar Hx of hepatitis C Overweight Not ready to quit smoking Depression with anxiety Surgical History History of umbilical hernia repair (~09/16/23) Hx laparoscopic cholecystectomy (~09/16/23) S/P hernia surgery H/O hand surgery Hx of colonoscopy H/O lumbar discectomy Family History Father No problems noted. Mother No problems noted. Brother No problems noted. Son No problems noted. Sister Substance use disorder Mental health disorder Sister No problems noted. Social History Household Members: Significant Other Housing: Apartment Alcohol intake: former Patient Tobacco Use Status: Current everyday Tobacco user Tobacco use type: Cigarette Cigarette Packs Per Day: 1 Cigarettes Per Day: 20.0 Years Smoked: 50 e-Cigarette/Vaping Use: Never Used Second Hand Smoke Exposure: Yes Advance Directives Date on File: 09/16/23 service: No Current occupational status: employed Cognitive needs: No Hearing needs: No Vision needs: Yes Review of Systems Const Denies chills and Denies fever(s) Card Denies chest pain, Denies dyspnea and Denies dyspnea on exertion Resp Denies cough, Denies dyspnea and Denies dyspnea on exertion GI Denies hematochezia and Denies change in bowel habits Denies hematuria and Denies difficulty urinating Musc Denies back pain and Denies limited range of motion Neuro Denies focal weakness and Denies convulsions Psych Denies depression and Denies mood swings Physical Exam Const General: comfortable and no acute distress Eyes Other: Anicteric Resp Effort & Inspection: normal respiratory effort GI Other: All incisions are well healed Palpation (GI): Soft to palpation, not firm and nontender Assessment & Plan Assessment & Plan (1) Hx of cholecystitis: Code(s): Z87.19 - Personal history of other diseases of the digestive system Category: Medical Plan: Status post laparoscopic cholecystectomy and concomitant umbilical hernia repair with Dr. Trujillo. He is doing very well postoperatively. All incisions are well healed. There were no obvious hernias He was advised to avoid lifting anything more than 20 lb for at least 2 more weeks. He can otherwise follow up on a p.r.n. basis. Coding Level of Care Code Global (34140) Diagnoses Hx of cholecystitis Z87.19
[2023-09-29 14:26] VITALS: BP 108/80; PULSE 107; BMI 26.0
== END 2023-09-29 14:55 | disposition home or self-care (01) ==
PROVIDERS: PCP Internal Medicine; Visit Provider Surgery
DX: Z87.19 Personal history of other diseases of the digestive system (principal)
CPT/HCPCS: 99024

== ENCOUNTER → 2023-09-29 14:19 | Outpatient (BNVA) | payer MEDICARE, SELFPAY | PROVIDERS: PCP Internal Medicine; Visit Provider Surgery | DX: Z09 Encounter for follow-up examination after completed treatment for conditions other than malignant neoplasm (principal); Z87.19 Personal history of other diseases of the digestive system | CPT/HCPCS: 99212 ==

== ENCOUNTER 2023-11-04 13:34 | Outpatient (AMB) | payer MEDICARE, SELFPAY ==
--- NOTE | 2023-11-04 13:57 | A.OFFPC_ITS ---
Vital Signs 11/04/23 13:59 Height 6 ft 1 in Weight 193 lb BMI 25.5 BP 138/82 Blood Pressure Location Lt brachial Position Sitting Pulse 98 Pulse Source Pulse Oximeter Pulse Oximetry (%) 98 Oxygen Delivery Method Room Air Intake Visit Reasons: Annual PE/OK Per Dr. Gamino Intake Note: Pt is here today for his PE: Last colonoscopy 07/21/23 Allergies No Known Allergies Allergy (Verified 11/10/23 01:30) Medication List - Last Reconciled 11/04/23 by Maryellen Gregg MD gabapentin 600 mg PO TID Lactobacillus rhamnosus GG (Culturelle) 1 cap PO DAILY multivitamin 1 tab PO DAILY rosuvastatin 5 mg PO BEDTIME tamsulosin 0.4 mg PO BEDTIME 90 days venlafaxine ER 75 mg PO DAILY Tobacco use date assessed: 11/04/23 Last assessed Fall Risk: 11/04/23 Dental Screening Dental Screen Date: 11/04/23 Did you have a dental visit in the last 12 months?: Yes Did you have a dental problem in the last 6 months where you did not have access to dental care?: Yes Was dental information given to patient?: Patient has dentist HPI Annual PE/OK Per Dr. Gamino HPI Details 68-year-old male with PMH of depression and anxiety followed at [facility], hyperlipidemia, impaired fasting glucose degenerative disc disease in lumbar spine, benign prostatic hyperplasia, and history of cholecystitis status post cholecystectomy approximately a month ago, here today for his physical exam. He has been feeling well, but unfortunately continues to smoke cigarettes with no desire to quit at present time. He is up-to-date with his screening colonoscopy done earlier this year, with 4 fragments of tubular adenoma polyps removed, repeat due again in 2026. [facility] Medical History (Updated 11/10/23 @ 01:47 by Maryellen Gregg MD) Heavy cigarette smoker (20-39 per day) Hx of cholecystitis Diverticulosis Tubular adenoma of colon Urinary hesitancy due to benign prostatic hyperplasia Urinary incontinence, urge Nail discoloration Chronic low back pain with sciatica Hx of type B viral hepatitis Impaired fasting glucose Dyslipidemia Vitamin D deficiency Degenerative disc disease, lumbar Hx of hepatitis C Overweight Not ready to quit smoking Depression with anxiety Surgical History History of umbilical hernia repair (~09/16/23) Hx laparoscopic cholecystectomy (~09/16/23) S/P hernia surgery H/O hand surgery Hx of colonoscopy H/O lumbar discectomy Family History Father No problems noted. Mother No problems noted. Brother No problems noted. Son No problems noted. Sister Substance use disorder Mental health disorder Sister No problems noted. Social History Household Members: Significant Other Housing: Apartment Alcohol intake: former Patient Tobacco Use Status: Current everyday Tobacco user Tobacco use type: Cigarette Cigarette Packs Per Day: 1 Cigarettes Per Day: 20.0 Years Smoked: 50 e-Cigarette/Vaping Use: Never Used Second Hand Smoke Exposure: Yes Advance Directives Date on File: 09/16/23 service: No Current occupational status: employed Cognitive needs: No Hearing needs: No Vision needs: Yes Questionnaire Thrive Questionnaire Date Thrive assessed: 11/04/23 I am a: Patient What is your living situation today?: I have a steady place to live Within the past 12 months, did the food you bought not last and you didn't have the money to get more?: Never true Within the past 12 months, did you worry whether your food would run out before you got money to buy more?: Never true Do you have trouble paying for medicines?: No Do you have trouble getting transportation to medical appointments?: I choose not to answer this question Do you have trouble paying your heating and electricity bill?: I choose not to answer this question Do you have trouble taking care of your child, family member or friend?: I choose not to answer this question Do you have trouble with day-to-day activities such as bathing, preparing meals, shopping, managing finances, etc.?: I choose not to answer this question Are you currently unemployed and looking for a job?: I choose not to answer this question Are you interested in more education?: I choose not to answer this question Please select the resources that you would like help with: None Currently or been in a relationship where the following occur: I choose not to answer THRIVE Score: 0 AUDIT C Alcohol Use Questionnaire (AUDIT-C) 1. How often do you have a drink containing alcohol?: Never Total Score: 0 DAVID-7 AMB Questionnaire DAVID-7 Date DAVID - 7 assessed: 04/24/23 Source: Developed by Drs. Emanuel Mcmahon, Mirna Floyd, Florin Cervantes and colleagues, with an educational [place] from [employer] Review of Systems Const Denies chills and Denies fever(s) Eyes Reports change in vision ENT Reports no additional complaints and Reports Normal hearing present Card Denies chest pain, Denies dyspnea and Denies dyspnea on exertion Resp Denies chest congestion, Denies cough, Denies dyspnea and Denies dyspnea on exertion GI Denies hematochezia and Denies change in bowel habits Denies hematuria and Denies difficulty urinating Musc Denies back pain and Denies limited range of motion Skin/Breast Denies breast pain, Denies breast mass, Denies rash and Denies wounds Neuro Reports Normal hearing present, Denies focal weakness, Denies convulsions and Denies Sensory deficit (Neuro) Psych Reports no additional complaints Endo Reports no additional complaints Gama/Lymph Reports no additional complaints Aller/Immun Reports no additional complaints Physical exam (Primary Care) Vital Signs: Last Vital Signs Pulse 98 11/04/23 13:59 BP 138/82 11/04/23 13:59 Pulse Ox 98 11/04/23 13:59 Oxygen Delivery Method Room Air 11/04/23 13:59 BMI result Body Mass Index 25.5 Tobacco/Smoking Status: Tobacco use Status Tobacco use date assessed 11/04/23 11/04/23 14:04 Patient Tobacco Use Status Current everyday Tobacco 11/04/23 13:57 Tobacco use type Cigarette 11/04/23 13:57 e-Cigarette/Vaping Use Never Used 11/04/23 13:57 Are you ready to quit: No Tobacco cessation counseling provided: Yes Thrive Assessment: Date of Thrive Assessment Date Thrive assessed 11/04/23 11/04/23 13:57 Currently or been in a relationship where the following occur: I choose not to answer Advance Care Planning discussion: Completed/Scanned Date of discussion: 11/04/23 Who was present: Patient Forms completed: MOLST Time spent: 16-45 minutes Actual minutes spent: 16 Const General: cooperative, comfortable, no acute distress and alert Nutritional Appearance: overweight Orientation/consciousness: patient oriented x3 HENMT Head: Yes normocephalic Ears: hearing grossly normal bilaterally, external ears normal, TM's normal bilaterally and EAC's normal General nose exam: Normal external nose present Face and sinus: Yes face symmetric Mouth: Normal oral and palatal mucosa present and moist mucous membranes Eyes General: appearance normal, both eyes and all related structures Neck Neck: Yes full ROM, Yes no lymphadenopathy and Yes supple Chest Chest palpation & inspection: normal inspection of the chest and normal palpation of entire chest wall Resp Effort & Inspection: normal respiratory effort and able to speak in complete sentences Auscultation: clear to auscultation bilaterally Cardio Palpation: normal PMI Rate: regular rate Rhythm: regular rhythm Heart sounds: S1 normal heart sound present and S2 normal heart sound present GI Palpation (GI): Soft to palpation, nontender, no guarding, no masses and Other GI palpation findings present (Diastasis recti present) Auscultation: normal bowel sounds General: Yes no CVA tenderness Back/Spine/Pelvis Back: no CVA tenderness Thoracic/Lumbar Spine: Lasegue's sign negative and paraspinal muscle tenderness bilaterally in the lower lumbar Skin General skin exam: no rashes or lesions noted Neuro General: patient oriented x3, gait normal, moves all extremities, Normal light touch and pain sensation, no focal motor deficits and CN's II-XI intact bilaterally Cranial nerves: Yes Normal hearing present Gait exam (Neuro): Normal gait present Sensory Exam: No Sensory deficit (Neuro) Extrem General: Yes full ROM, Yes no joint enlargement, Yes no pedal edema, Yes no calf tenderness and Yes normal gait Psych Appearance: grossly normal and well kempt Mental Status: mental status grossly normal Speech and movement: Normal speech and movement present Affect: normal affect Attitude: cooperative Thought process: Normal thought process present Thought content: Normal thought content present Assessment and Plan Assessment & Plan (1) Annual visit for general adult medical examination with abnormal findings: Code(s): Z00.01 - Encounter for general adult medical examination with abnormal findings Plan: Will check appropriate labs. Recommended dental visit every 6 months and regular eye exams, at least every 2 years. Take adequate calcium in diet and vitamin-D 3 at 2000 IU per cap once a day, in addition to weight-bearing exercises to help maintain good muscle tone and weight control. Instructed to do self testicular exam check for any abnormal mass. Reminded to get his yearly flu shot, COVID booster,, and shingles vaccine. Up-to-date with his pneumococcal vaccination and Tdap. (2) Dyslipidemia: Code(s): E78.5 - Hyperlipidemia, unspecified Plan: fasting lipid profile ordered ordered . Continue rosuvastatin 5 mg daily , in addition to adherence to low-cholesterol diet and regular exercise, at least 30 minutes 3 to 4 times a week. Advised patient to make healthy food choices, eat more fruits, vegetables, whole grains, wild caught fish and low-fat dairy. Limit amount of meat and fried or fatty food products, as well as processed foods and fast foods. (3) Heavy cigarette smoker (20-39 per day): Code(s): F17.210 - Nicotine dependence, cigarettes, uncomplicated Plan: Patient strongly advised to stop smoking, as smoking damages blood vessels, degenerative of joints and spine, damage to lungs and heart., predisposes to developing certain cancers like lung, breast, bladder, colon. Recommended to try decreasing cigarette use by 1-2 cigarettes a day. Advised to monitor what triggers are for smoking so that this can be discussed on the next office visit. We can discuss different options to quit smoking when ready. Referred for lung cancer screening (4) Tubular adenoma of colon: Code(s): D12.6 - Benign neoplasm of colon, unspecified Plan: Colonoscopy done earlier this year, repeat due again in 2026 due to removal of 4 tubular adenoma polyps (5) Chronic low back pain with sciatica: Code(s): M54.40 - Lumbago with sciatica, unspecified side; G89.29 - Other chronic pain Qualifiers: Back pain laterality: unspecified Sciatica laterality: sciatica laterality unspecified Qualified Code(s): M54.40 - Lumbago with sciatica, unspecified side; G89.29 - Other chronic pain Plan: Currently on gabapentin (6) Impaired fasting glucose: Code(s): R73.01 - Impaired fasting glucose Plan: Your previous fasting blood sugars were elevated above 100 mg/dL. Impaired glucose metabolism increases the risk for developing diabetes mellitus type 2, as well as heart attack and stroke later on. Lifestyle changes that promotes weight loss, healthy eating habits, and regular exercise are important, and can prevent the progression to diabetes (7) Depression with anxiety: Comment: Currently being seen by Aline Ying, now sees Gregory Hazel Code(s): F41.8 - Other specified anxiety disorders Plan: Followed at [facility] (8) Advanced directives, counseling/discussion: Code(s): Z71.89 - Other specified counseling Plan: Initiated the conversation about Advanced Directives. Advanced Directives help patients prepare for current and future decisions about their medical treatment and place of care. Discussed with patient that it is a process where a patients current condition and prognosis are reviewed, their wishes for information regarding their illness are elicited, and likely medical dilemmas are presented and options discussed. MOLST form completed today, healthcare proxy form already completed and in his record. These forms can be amended as needed, reviewed yearly and make changes as needed Orders: Orders Lipid Panel 11/04/23 E78.5 - Hyperlipidemia, unspecified Aspartate Amino Transferase 11/04/23 E78.5 - Hyperlipidemia, unspecified, F17.210 - Nicotine dependence, cigarettes, uncomplicated Glucose Fasting 11/04/23 E78.5 - Hyperlipidemia, unspecified, F17.210 - Nicotine dependence, cigarettes, uncomplicated Alanine Aminotransferase 11/04/23 E78.5 - Hyperlipidemia, unspecified, F17.210 - Nicotine dependence, cigarettes, uncomplicated Referrals Lung Cancer Screening Referral F17.210 - Nicotine dependence, cigarettes, uncomplicated Coding Level of Care Code Est Pt Prev Care >65y(67467) Diagnoses Annual visit for general adult medical examination with abnormal findings Z00.01 Dyslipidemia E78.5 Heavy cigarette smoker (20-39 per day) F17.210 Tubular adenoma of colon D12.6 Chronic low back pain with sciatica, sciatica laterality unspecified, unspecified back pain laterality M54.40; G89.29 Back pain laterality: unspecified Sciatica laterality: sciatica laterality unspecified Impaired fasting glucose R73.01 Depression with anxiety F41.8 Advanced directives, counseling/discussion Z71.89 Additional Codes Vital Signs *Quality* - Advance Care Planning discussion: Completed/Scanned ([id number]) Vital Signs *Quality* - Time spent: 16-45 minutes ([id number])
[2023-11-04 13:59] VITALS: BP 138/82; PULSE 98; O2SAT 98; BMI 25.5
== END 2023-11-04 14:40 | disposition home or self-care (01) ==
PROVIDERS: PCP Internal Medicine; Visit Provider Internal Medicine
DX: Z00.00 Encounter for general adult medical examination without abnormal findings (principal); E78.5 Hyperlipidemia, unspecified; F17.210 Nicotine dependence, cigarettes, uncomplicated; D12.6 Benign neoplasm of colon, unspecified; M54.40 Lumbago with sciatica, unspecified side; G89.29 Other chronic pain; R73.01 Impaired fasting glucose; F41.8 Other specified anxiety disorders; Z71.89 Other specified counseling
CPT/HCPCS: 1123F; 99397; 99497

== ENCOUNTER 2024-02-24 11:16 | Outpatient (REF) | payer MEDICARE, SELFPAY ==
--- NOTE | ~2024-02-24 | US_ITS ---
EXAMINATION: US PELVIS LIMITED (BLADDER) CLINICAL INFORMATION: Poor urinary stream. COMPARISON: Ultrasound abdomen of 09/16/2023 TECHNIQUE: Real-time imaging of the bladder. FINDINGS: BLADDER: Well-distended. Diffuse trabeculation of the bladder wall. Bilateral ureteral jets are demonstrated. Prevoid bladder volume is 294 mL. Postvoid bladder volume is 92 mL. Enlarged prostate gland with volume 41 mL US/US bladder IMPRESSION: 1. Diffuse trabeculation of the bladder wall. 2. Postvoid bladder volume is 92 mL. 3. Enlarged prostate gland with volume 41 mL . Electronically signed by: Cynthia Jean MD 02/29/2024 09:13 AM [facility]
--- OUTSIDE RECORDS SUMMARY | 2024-02-24 11:18 | XMS_ITS | Continuity of Care Document ---
Author Organization [facility] Address [address] [address] Phone Care Team Providers Care Watch Adjuster Name Role Phone Rocío Olivas OT Unavailable Unavailable Advance Directives Directive Yes / No Effective Date File Name No Information Encounters Encounter Description Practice Location Reason(s) For Visit Diagnoses Date Provider Providers Copied on Encounter [facility], [address] [address], [place], [place], [id number], [place] tel:[phone] [facility] No Information Brendon Alford. [address], [place], [id number], [place]. tel:[phone] Family History Family Member Type Diagnosis Age At Onset No Information Payers Payer name Insurance type Covered libertarian ID Authoriza tion(s) No Information Social History Type Description Quantity Date Captured Comments Sex Male Smoking Status No Information Chief Complaint And Reason For Visit No Information Reason For Referral Reason For Referral No Information History Of Present Illness Encounter Date Complaint History Of Prese nt Illness No Information Functional Status Date Functional Assessmen t No Information Instructions Date Instruction Additional Infor mation No Information Assessments Type Assessment Date No Information Patient Care Teams Name Effective Dates (start - stop) Status Members No Information
[2024-02-24 13:57] LABS: Alanine Aminotransferase 26 U/L (0-40); Aspartate Amino Transferase 24 U/L (5-37); Cholesterol 142 mg/dL (<200); Glucose Fasting 104 mg/dL (60-99); HDL Cholesterol 45 mg/dL (>40); LDL Cholesterol Calculated 86 mg/dL (<100); Triglycerides 56 mg/dL (<150)
== END 2024-02-24 11:17 | disposition home or self-care (01) ==
LOC: HO.HMGCX 11:16
PROVIDERS: PCP Internal Medicine; Referring Provider Internal Medicine; Visit Provider Urology
DX: N40.1 Benign prostatic hyperplasia with lower urinary tract symptoms (principal); R39.11 Hesitancy of micturition; R39.12 Poor urinary stream; K12.2 Cellulitis and abscess of mouth; E78.5 Hyperlipidemia, unspecified; F17.210 Nicotine dependence, cigarettes, uncomplicated
CPT/HCPCS: 36415; 76857; 80061; 82947; 84450; 84460; 99212

== ENCOUNTER 2024-02-24 11:44 | Outpatient (AMB) | payer MEDICARE, SELFPAY ==
--- NOTE | 2024-02-24 11:47 | AM.OFFWIN_ITS ---
Intake Vital Signs 02/24/24 11:49 Weight 192 lb BP 136/80 Blood Pressure Location Lt brachial Position Sitting Pulse 79 Pulse Source Pulse Oximeter Temp 97.5 F Temp Source Oral Pulse Oximetry (%) 97 Oxygen Delivery Method Room Air Intake Visit Reasons: EP-lt side tooth ache Intake Note: Patient here for left side tooth ache that has been present for about 1 week. Patient Tobacco Use Status: Current everyday Tobacco user Allergies No Known Allergies Allergy (Verified 02/24/24 11:50) Do you need a note to return to daycare/school/sports/work: No HPI HPI Comments History of Present Illness Details History of Present Illness - The patient is a 68-year-old male pres enting with dental pain and a suspected infection. - About one week ago, pain began after b iting into a hard object, affecting the tooth on the left side. The tooth is intact and not cracked. - The discomfort progressed to involve t he surrounding gum tissue and bones but with no fever reported. - The patient visited a dentist who iden tified the appointment date in mid- March but provided no immediate intervention. - Currently, the discomfort now involves the jaw area, with the patient indicating that an associated dental plate requiring adjustment is a contributing factor. Physical Exam General: Cooperative, healthy appearing, comfortable, no acute distress and well developed Orientation: Patient oriented x3 Limitations: No limitations Head: Normal to inspection Ears: Hearing grossly normal bilaterally Nose: Normal external nose present Face and sinus: Normal facial exam, tenderness noted on the left side of the cheek, small indurated area on left cheek Eyes: Appearance normal, both eyes and all related structures Neck: Normal visual inspection and Yes full ROM Respiratory: Normal respiratory effort and able to speak in complete sentences. Skin: No rashes or lesions noted Neuro: Patient oriented x3 Extremities: Normal to inspection [facility] Medical History (Updated 02/24/24 @ 12:06 by Argentina Roman PA-C) Hx of cholecystitis Nicotine dependence, cigarettes, uncomplicated Diverticulosis Tubular adenoma of colon Urinary hesitancy due to benign prostatic hyperplasia Urinary incontinence, urge Nail discoloration Chronic low back pain with sciatica Hx of type B viral hepatitis Impaired fasting glucose Dyslipidemia Vitamin D deficiency Degenerative disc disease, lumbar Hx of hepatitis C Overweight Depression with anxiety Surgical History (Updated 12/11/23 @ 10:30 by Sushma M May, PA-C) History of liver biopsy History of colonoscopy History of hand surgery History of lumbar discectomy History of laparoscopic cholecystectomy (~2023) History of umbilical hernia repair (~2023) S/P hernia surgery Family History Father No problems noted. Mother No problems noted. Brother No problems noted. Son No problems noted. Sister Substance use disorder Mental health disorder Sister No problems noted. Social History Household Members: Significant Other Housing: Apartment Alcohol intake: former Patient Tobacco Use Status: Current everyday Tobacco user Tobacco use type: Cigarette Cigarette Packs Per Day: 1 Cigarettes Per Day: 20.0 Years Smoked: 50 e-Cigarette/Vaping Use: Never Used Second Hand Smoke Exposure: Yes Advance Directives Date on File: 09/16/23 service: No Current occupational status: employed Cognitive needs: No Hearing needs: No Vision needs: Yes Review of Systems Const All systems reviewed & are unremarkable except as noted in HPI and below Assessment & Plan Assessment & Plan (1) Mouth abscess: Code(s): K12.2 - Cellulitis and abscess of mouth Plan: Plan To manage the dental pain and suspected infection, a prescription for Augmentin will be dispensed for a duration of seven days. The patient will also use naproxen for pain management due to liver concerns, avoiding acetaminophen. Provision has been made for the patient to rinse with warm salt water to help maintain oral hygiene until the scheduled dentist appointment in mid-March. This will ensure ongoing care and management of the dental condition, including the adjustment of the problematic dental plate. The necessary medication will be sourced from [facility] [address]. Patient was informed and verbally consented to the use of an ambient scribe for clinic note documentation during this visit. Medications: New amoxicillin-pot clavulanate 875-125 mg 1 tab PO Q12H 14 tabs 0RF Coding Level of Care Code Est Pt Level 3 (24511) Diagnoses Mouth abscess K12.2
[2024-02-24 11:49] VITALS: BP 136/80; PULSE 79; TEMP 36.4; O2SAT 97
== END 2024-02-24 12:12 | disposition home or self-care (01) ==
PROVIDERS: PCP Internal Medicine; Visit Provider Physician Assistant
DX: K12.2 Cellulitis and abscess of mouth (principal)

== ENCOUNTER 2024-03-10 13:37 | Outpatient (AMB) | payer MEDICARE, SELFPAY ==
--- OUTSIDE RECORDS SUMMARY | 2024-03-10 13:40 | XMS_ITS | Continuity of Care Document ---
Author Organization [facility] Address [address] [address] Phone Care Team Providers Care Machine Feeder Name Role Phone Rocío Olivas OT Unavailable Unavailable Advance Directives Directive Yes / No Effective Date File Name No Information Encounters Encounter Description Practice Location Reason(s) For Visit Diagnoses Date Provider Providers Copied on Encounter [facility], [address] [address], [place], [place], [id number], [place] tel:[phone] [facility] No Information Brendon Alford. [address], [place], [id number], [place]. tel:[phone] Family History Family Member Type Diagnosis Age [...]
--- NOTE | 2024-03-10 13:41 | MHC.OFFVIS ---
Intake Visit Reasons: 6M Bladder US/PVR(set) Intake Note: Patient is present for PVR Urology Medication:TAMSULOSIN Antibiotic Allergy:NONE Blood Thinner:NONE Todays PVR:OML'S Staple Processing Machine Operator Required: No Allergies No Known Allergies Allergy (Verified 03/10/24 13:42) HPI Comments Details: Emanuel is a pleasant male. He is a patient of Dr. Gregg. He is seen for the following urologic conditions - lower urinary tract symptoms Follow-up on tamsulosin Bladder ultrasound 0 cc Happy with current urinary performance 12 month follow-up PSA and PVR Lower urinary tract symptoms Progressive Incomplete bladder emptying Developing weakness of stream Current therapy tamsulosin PFSH Medical History (Updated 02/24/24 @ 12:06 by Argentina Roman PA-C) Hx of cholecystitis Nicotine dependence, cigarettes, uncomplicated Diverticulosis Tubular adenoma of colon Urinary hesitancy due to benign prostatic hyperplasia Urinary incontinence, urge Nail discoloration Chronic low back pain with sciatica Hx of type B viral hepatitis Impaired fasting glucose Dyslipidemia Vitamin D deficiency Degenerative disc disease, lumbar Hx of hepatitis C Overweight Depression with anxiety Surgical History (Updated 12/11/23 @ 10:30 by Sushma Sandoval PA-C) History of liver biopsy History of colonoscopy History of hand surgery History of lumbar discectomy History of laparoscopic cholecystectomy (~2023) History of umbilical hernia repair (~2023) S/P hernia surgery Family History Father No problems noted. Mother No problems noted. Brother No problems noted. Son No problems noted. Sister Substance use disorder Mental health disorder Sister No problems noted. Social History Household Members: Significant Other Housing: Apartment Alcohol intake: former Patient Tobacco Use Status: Current everyday Tobacco user Tobacco use type: Cigarette Cigarette Packs Per Day: 1 Cigarettes Per Day: 20.0 Years Smoked: 50 e-Cigarette/Vaping Use: Never Used Second Hand Smoke Exposure: Yes Advance Directives Date on File: 09/16/23 service: No Current occupational status: employed Cognitive needs: No Hearing needs: No Vision needs: Yes Review of Systems Const Denies chills and Denies fever(s) Card Reports no additional complaints and Denies syncope Resp Denies cough GI Denies abdominal pain and Denies heartburn Reports as per HPI and Denies change in libido Neuro Denies syncope Psych Denies change in libido Endo Denies change in libido Physical Exam Const General: cooperative, healthy appearing, comfortable and no acute distress Orientation/consciousness: patient oriented x3 HEENT Face and sinus: Yes normal facial exam Mouth: moist mucous membranes Neck Neck: Yes normal visual inspection, Yes full ROM and Yes trachea midline Chest Chest palpation & inspection: normal inspection of the chest Resp Effort & Inspection: normal respiratory effort, able to speak in complete sentences and no respiratory distress GI Inspection: Yes normal to inspection Back/Spine/Pelvis Cervical Spine: normal cervical lordosis Thoracic/Lumbar Spine: thoracic and lumbar spine normal to inspection Skin General skin exam: no rashes or lesions noted Neuro General: patient oriented x3, gait normal, tone normal and moves all extremities Extrem General: Yes normal to inspection and Yes capillary refill normal Office Procedures Post Void Residual Post Residual Void Post Void Residual (PVR): 0 29571-Onvm Void Residual by ultrasound Assessment & Plan Assessment & Plan (1) Urinary hesitancy due to benign prostatic hyperplasia: Code(s): N40.1 - Benign prostatic hyperplasia with lower urinary tract symptoms; R39.11 - Hesitancy of micturition Category: Medical Plan Twelve month follow-up PSA Orders: Orders AMB Urinalysis Automated Today Z13.9 - Encounter for screening, unspecified Prostate Specific Antigen 364 Days N40.1 - Benign prostatic hyperplasia with lower urinary tract symptoms, R39.11 - Hesitancy of micturition Patient Instructions: Imaging studies, laboratory and physical exam results were discussed and reviewed in detail. No major barriers to patient understanding were identified. An opportunity to ask questions regarding the treatment plan was provided. All questions were answered. The patient expressed understanding and agreement with the above treatment plan. The patient is aware they should contact our office by phone for worsening of their current condition or the appearance of new urologic symptoms. Compliance is encouraged with any medications and followup testing that is ordered. It is a privilege to participate in the urologic care of your patient. If you have any questions or concerns regarding treatment for the above conditions, or other urologic issues, please do not hesitate to contact me. The office telephone contact is [phone]. This note is constructed using voice recognition software. While every effort has been made to ensure accuracy school guidance counselor errors may have been included. Yours sincerely, Dr Yash Rich MD, [facility] - Urology Providers of Expert, Compassionate Care for the Genitourinary System Coding Level of Care Code Est Pt Level 3 (01365) Diagnoses Urinary hesitancy due to benign prostatic hyperplasia N40.1; R39.11 CPT Codes Post Residual Void - PVR CPT Code: 75293-Gyvt Void Residual by ultrasound ([id number])
== END 2024-03-10 14:04 | disposition home or self-care (01) ==
PROVIDERS: PCP Internal Medicine; Visit Provider Urology
DX: N40.1 Benign prostatic hyperplasia with lower urinary tract symptoms (principal); R39.11 Hesitancy of micturition
CPT/HCPCS: 99213

== ENCOUNTER → 2024-03-10 13:37 | Outpatient (BNVA) | payer MEDICARE, SELFPAY | PROVIDERS: PCP Internal Medicine; Visit Provider Urology | DX: N40.1 Benign prostatic hyperplasia with lower urinary tract symptoms (principal); R39.11 Hesitancy of micturition | CPT/HCPCS: 51798; 99212 ==

== ENCOUNTER 2024-04-29 13:49 | Outpatient (AMB) | payer MEDICARE, SELFPAY ==
--- NOTE | 2024-04-29 14:11 | MHC.OFFWIV ---
Intake Vital Signs 04/29/24 14:20 Weight 192 lb BP 110/70 Blood Pressure Location Rt brachial Position Sitting Pulse 103 H Pulse Source Pulse Oximeter Pulse Oximetry (%) 98 Oxygen Delivery Method Room Air Intake Visit Reasons: EP ?Sinus infection Intake Note: Patient here for sinus pressure on right side that has been present for over 1 week. Patient Tobacco Use Status: Current everyday Tobacco user Allergies No Known Allergies Allergy (Verified 04/29/24 14:19) Do you need a note to return to daycare/school/sports/work: No HPI HPI Comments History of Present Illness Details History - The patient is a 68-year-old male with a recent onset of head and sinus-related symptoms, identified approximately two weeks ago as initially an earache. - Symptoms include pressure in the head and around the eyes, with progression observed towards the sinuses, absence of accompanying fever or congestion. - Tylenol used without desired relief, ruling out specific prior nasal/sinus treatment measures. Physical Exam General: Cooperative, healthy appearing, comfortable and no acute distress Orientation/consciousness: Patient oriented x3 Limitations: No limitations Head: Normal to inspection, but reports pressure on the head Ears: Hearing grossly normal bilaterally, right TM with erythema Nose: Normal external nose present, Normal nares present and No nasal discharge present Face and sinus: Normal facial exam and Sinuses tender to palpation Mouth: Normal oral and palatal mucosa present and moist mucous membranes Throat: Yes tonsils normal, Yes uvula midline. Posterior oropharynx erythema Eyes: Appearance normal, both eyes and all related structures Neck: Normal visual inspection Respiratory: Normal respiratory effort, able to speak in complete sentences, No cough, no respiratory distress, not tachypneic, no tripod positioning and no use of accessory muscles Skin: No rashes or lesions noted Neuro: Patient oriented x3 Extremities: Normal to inspection and Yes no clubbing, cyanosis or edema [facility] Medical History (Updated 04/29/24 @ 14:45 by Argentina Roman PA-C) Hx of cholecystitis Nicotine dependence, cigarettes, uncomplicated Diverticulosis Tubular adenoma of colon Urinary hesitancy due to benign prostatic hyperplasia Urinary incontinence, urge Nail discoloration Chronic low back pain with sciatica Hx of type B viral hepatitis Impaired fasting glucose Dyslipidemia Vitamin D deficiency Degenerative disc disease, lumbar Hx of hepatitis C Overweight Depression with anxiety Surgical History (Updated 12/11/23 @ 10:30 by Sushma Sandoval PA-C) History of liver biopsy History of colonoscopy History of hand surgery History of lumbar discectomy History of laparoscopic cholecystectomy (~2023) History of umbilical hernia repair (~2023) S/P hernia surgery Family History Father No problems noted. Mother No problems noted. Brother No problems noted. Son No problems noted. Sister Substance use disorder Mental health disorder Sister No problems noted. Social History Household Members: Significant Other Housing: Apartment Alcohol intake: former Patient Tobacco Use Status: Current everyday Tobacco user Tobacco use type: Cigarette Cigarette Packs Per Day: 1 Cigarettes Per Day: 20.0 Years Smoked: 50 e-Cigarette/Vaping Use: Never Used Second Hand Smoke Exposure: Yes Advance Directives Date on File: 09/16/23 service: No Current occupational status: employed Cognitive needs: No Hearing needs: No Vision needs: Yes Review of Systems Const All systems reviewed & are unremarkable except as noted in HPI and below Physical Exam Vital Signs: Last Vital Signs Pulse 103 H 04/29/24 14:20 BP 110/70 04/29/24 14:20 Pulse Ox 98 04/29/24 14:20 Oxygen Delivery Method Room Air 04/29/24 14:20 Assessment & Plan Assessment & Plan (1) Sinusitis, acute: Code(s): J01.90 - Acute sinusitis, unspecified Qualifiers: Sinusitis location: frontal Recurrence: non-recurrent Qualified Code(s): J01.10 - Acute frontal sinusitis, unspecified Plan: The management plan involves administration of Augmentin to address potential bacterial sinusitis and otitis media, reflecting a 5 to 7-day treatment duration influenced by symptom response. Additional relief for sinus-related discomfort will be approached with Flonase nasal spray, aimed at reducing mucosal inflammation and facilitating drainage. Proper nasal spray application instructions were elaborated for optimal patient adherence and therapeutic effectiveness. Arrangements are made for prescription fulfillment, with observation of symptom progression guiding further medical care needs. Patient was informed and verbally consented to the use of an ambient scribe for clinic note documentation during this visit Medications: New amoxicillin-pot clavulanate 875-125 mg 1 tab PO Q12H 14 tabs 0RF fluticasone propionate 50 mcg/actuation administer into each nostril 1 spray intranasal Q12H 16 grams 0RF Coding Level of Care Code Est Pt Level 3 (66877) Diagnoses Acute non-recurrent frontal sinusitis J01.10 Sinusitis location: frontal Recurrence: non-recurrent
[2024-04-29 14:20] VITALS: BP 110/70; PULSE 103; O2SAT 98
--- OUTSIDE RECORDS SUMMARY | 2024-04-29 16:39 | XMS_ITS | Encounter Summary ---
Author Organization [employer] [facility] Address [address] [place] [address] [address] [place] [address] Care Team Providers Care Lumber Sticker Name Role Phone Unavailable Primary Care Provider Unavailabl e Encounter Details Date Type Department Care Team (Late st Contact Info) Description 09/11/2023 Telephone [facility] ADULT DENTAL [address] [place], [place] [phone] Chanda Barakat DDS [address] [place], [place] [phone] Social History Tobacco Use Types Packs/Day Years Used Date Smoking Tobacco: Every Day Cigarettes 1 50 Smokeless Tobacco: Never Alcohol Use Standard Drinks/Week Comments Never 0 (1 standard drink = 0.6 oz pur e alcohol) Sex and Gender Information Value Date Recorded Sex Assigned at Male 12/31/2021 10:23 AM EDT Legal Sex Male 10:23 AM EDT Gender Identity Male 12/31/2021 10:23 AM EDT Sexual Orientation Don't know 12/31/2021 10 :23 AM EDT documented as of this encounter Miscellaneous Notes * Telephone Encounter - Lor Baer - 09/11/2023 12:16 PM EDT Patient called he has not received his medication pharmacy said we never send it . He call us back at 140 documented in this encounter Plan of Treatment Not on file documented as of this encounter Visit Diagnoses Not on filedocumented in this encounter
--- OUTSIDE RECORDS SUMMARY | 2024-04-29 16:39 | XMS_ITS | Encounter Summary ---
Author Organization [employer] Address [address] [facility] [address] [place] [address] Care Team Providers Care Aquaculture And Fisheries Professor Name Role Phone Unavailable Primary Care Provider Unavailabl e Encounter Details Date Type Department Care Team (Late st Contact Info) Description 03/31/2024 Telephone [facility] ADULT DENTAL [address] [place], [place] [phone] Chanda Barakat DDS [address] [place], [place] [phone] Social History Tobacco Use Types Packs/Day Years [...] encounter Miscellaneous Notes * Telephone Encounter - Yrisdylan Neto Pitts - 03/31/2024 3:55 PM EST this is the second time that pt calls asking for medication (antibiotics) to be prescribe. Spoke with Dickson on Friday and she spoke with Dr. Marie since Dr. Barakat was out on vacation. Per chartnotes and Dr. Marie we can't prescribe any medication due to no mention of it on the Dr's notes. If the patient wants medication he would need to come in to get checked as an emergency for any pain/ swollen and/or bleeding and medication would be prescribed as dentist see is necessary. Gave information to patient, patient stated that he don't want to pay for an emergency appt. Pt has BCBS unableto talk $$ on this call with the patient, he just refused to come in as an emergency without me giving proper information. 1.29.28 documented in this encounter Plan of Treatment Not on file documented as of this encounter Visit Diagnoses Not on filedocumented in this encounter
--- OUTSIDE RECORDS SUMMARY | 2024-04-29 16:39 | XMS_ITS | Clinical Summary ---
Author Organization [employer] [facility] Address [address] [place] [address] [address] [address] Care Team Providers Care Veterinarian Assistant Name Role Phone Unavailable Primary Care Provider Unavailabl e Allergies No known active allergies Medications Sodium Fluoride (PreviDent 5000 Booster Plus) 1.1 % paste Please smear pea-sized amount on tooth brush at night and brush for 2 mins. Do not rinse after brushing . Use regular toothpaste in the morning 100 mL 2 3 Active venlafaxine XR (Effexor XR) 37.5 MG 24 hr capsule 3 Active gabapentin (Neurontin) 300 MG capsule 3 Active risperiDONE (RisperDAL) 0.5 MG tablet 3 Active rosuvastatin (Crestor) 5 MG tablet Take 5 mg by mouth in the morning. 3 Active Active Problems Problem Noted Date Diagnosed Date Dental infection 02/26/2022 Encounters Date Type Department Care Team Description 03/31/2024 Telephone [facility] ADULT D[facility]AL [address] [place] [address] Chanda Barakat DDS 03/23/2024 1:30 PM EST Office Visit [facility] AD[facility] [address] [place] [address] Chanda Barakat DDS 03/09/2024 1:30 PM EST Office Visit [facility] AD[facility] [address] [place] [address] Chanda Barakat DDS 01/28/2024 11:00 AM EST Office Visit [facility] AD[facility] [address] [place] [address] Chanda Barakat DDS from Last 3 Months Social History Tobacco Use Types Packs/Day Years Used Date Smoking Tobacco: Every Day Cigarettes 1 50 Smokeless Tobacco: Never Tobacco Cessation:Ready to Q uit: Not Asked; Counseling Given: Not Answered Alcohol Use Standard Drinks/Week Comments Never 0 (1 standard drink = 0.6 oz pur e alcohol) Sex and Gender Information Value Date Recorded Sex Assigned at Male 12/31/2021 10:23 AM EDT Legal Sex Male 10:23 AM EDT Gender Identity Male 12/31/2021 10:23 AM EDT Sexual Orientation Don't know 12/31/2021 10 :23 AM EDT Last Filed Vital Signs Vital Sign Reading Time Taken Comments Blood Pressure 136/80 07/22/2023 10:03 AM EDT Pulse 65 07/02/2023 1:05 PM EDT Temperature - - Respiratory Rate - - Oxygen Saturation - - Inhaled Oxygen Concentration - - Weight - - Height - - Body Mass Index - - Plan of Treatment Health Maintenance Due Date Last Done Comments CT Colonography 1956 Colonoscopy 1956 Colorectal Cancer Screening 1956 Depression Screening 1956 FIT DNA/Cologuard 1956 FIT 1956 FOBT 1956 Lipid Panel 1956 SDOH Screening 1956 Sigmoidoscopy 1956 Alcohol/Substance Use Screening 1968 Hepatitis C Screening 1974 Hepatitis A Vaccines (1 of 2 - Risk 2-dose series) 05/30/1975 Lung Cancer Screening 2006 Hepatitis B Vaccines (1 of 3 - Risk 3-dose series) 2016 RSV Patients and Patients Aged 60 years or older (1 - Risk 60-74 years 1-dose series) 2016 COVID-19 Vaccine ( season) 2023 12/08/2022, 02/21/2021, 06/10/2020, Additional history exists Dental Oral Exam 01/03/2024 07/02/2023, 05/2022, 08/30/2020 Dental Prophylaxis 01/03/2024 07/02/2023, 08/30/2020 Zoster Vaccines (2 of 2) 05/06/2024 03/11/2024 Dental X-Ray: Bitewings 09/11/2024 09/11/19 24, 07/02/2023, 05/03/2022, Additional history exists Tobacco Screening 03/09/2025 03/09/2024 Dental X-Ray: Full Mouth 05/04/2025 05/03/2022, 11/01 DTaP/Tdap/Td Vaccines (3 - Td or Tdap) 12/16/2028 12/16/2018, 10/17/2017 Pneumococcal Vaccine: 50+ Years Completed 12/08/2022, 10/29/2021 Influenza Vaccine Completed 03/11/2024, , 02/19/2021, Additional history exists HIB Vaccines Aged Out No longer eligi ble based on patient's age to complete this topic HPV Vaccines Aged Out No longer eligi ble based on patient's age to complete this topic IPV Vaccines Aged Out No longer eligi ble based on patient's age to complete this topic Meningococcal Vaccine Aged Out No denver eloina eligible based on patient's age to complete this topic RSV under 20 months Aged Out No longe r eligible based on patient's age to complete this topic Rotavirus Vaccines Aged Out No longer eligible based on patient's age to complete this topic Procedures Procedure Name Priority Date/Time Associated Diagnosis Comments DENTURE FOLLOWUP Routine 03/23/2024 1:30 PM EST DENTURE FOLLOWUP Routine 03/09/2024 1:30 PM EST 3,5,14,15 MAXILLARY PARTIAL DENTURE - RESIN BASE (INCLUDING, RETENTIVE/CLASPING MATERIALS, RESTS, AND TEETH) Routine 01/28/2024 11:00 AM EST BITEWING - SINGLE RADIOGRAPHIC IMAGE Routine 09/11/2023 9:00 AM EDT Full PROPHYLAXIS - ADULT Routine 024 1:00 PM EDT PERIODIC ORAL EVALUATION - ESTABLISHED PATIENT Routine 07/02/2023 1:00 PM EDT INTRAORAL - COMPLETE SERIES OF RADIOGRAPHIC IMAGES Routine 05/03/2022 1:00 PM EST from Last 3 Months or Most Recently Relevant to Health Maintenance Insurance [place]ENT[place] - [place] , [address] [id number] , [address] [id number] , [address] [id number] , [address] [id number]
--- OUTSIDE RECORDS SUMMARY | 2024-04-29 16:39 | XMS_ITS | Encounter Summary ---
Author Organization [employer] [facility] Address [address] [place] [address] [address] [place] [address] Care Team Providers Care Information Systems Planner Name Role Phone Unavailable Primary Care Provider Unavailabl e Encounter Details Date Type Department Care Team (Latest Contact Info) Description 08/30/2020 Abstract [facility] CONVERSIONS Dental, Provider, DDS Social History Tobacco Use Types Packs/Day Years Used Date Smoking Tobacco: Never Assessed Sex and Gender Information Value Date Recorded Sex Assigned at Male 12/31/2021 10:23 AM EDT Legal Sex Male 10:23 AM EDT Gender Identity Male 12/31/2021 10:23 AM EDT Sexual Orientation Don't know 12/31/2021 10 :23 AM EDT documented as of this encounter Plan of Treatment Not on file documented as of this encounter Visit Diagnoses Not on filedocumented in this encounter
== END 2024-04-29 14:59 | disposition home or self-care (01) ==
PROVIDERS: PCP Internal Medicine; Visit Provider Physician Assistant
DX: J01.10 Acute frontal sinusitis, unspecified (principal)

== ENCOUNTER → 2024-04-29 13:49 | Outpatient (BNVA) | payer MEDICARE, SELFPAY | PROVIDERS: PCP Internal Medicine | DX: J01.10 Acute frontal sinusitis, unspecified (principal) | CPT/HCPCS: 99212 ==

== ENCOUNTER 2024-05-11 11:46 | Outpatient (REF) | payer MEDICARE, SELFPAY ==
--- NOTE | ~2024-05-11 | XR_ITS ---
EXAMINATION: XR KNEE 1-2 VIEWS RIGHT HISTORY: Pain in right knee COMPARISON: There are no prior studies available for comparison. FINDINGS: AP and lateral views of the right knee are submitted. Osseous mineralization is normal. There is no fracture or dislocation. The joint spaces are preserved. The soft tissues are unremarkable. There is no joint effusion. XR/XR knee RT 2V IMPRESSION: Unremarkable examination of the right knee. Electronically signed by: Emanuel Pedersen MD 05/12/2024 08:09 AM EDT
--- OUTSIDE RECORDS SUMMARY | 2024-05-11 14:34 | XMS_ITS | Clinical Summary ---
Author Organization [employer] [facility] Address [address] [place] [address] [address] [place] [address] Care Team Providers Care Director Government Name Role Phone Unavailable Primary Care Provider [...] Type Department Care Team Description 03/31/2024 Telephone [facility] ADULT DENTAL [address] [place] [address] Chanda Barakat DDS 03/23/2024 1:30 PM EST Office Visit [facility] ADULT DENTAL [address] [place] [address] Chanda Barakat DDS 03/09/2024 1:30 PM EST Office Visit [facility] ADULT DENTAL [address] [place] [address] Chanda Barakat DDS from Last 3 Months [...] DENTURE FOLLOWUP Routine 03/09/2024 1:30 PM EST BITEWING - SINGLE RADIOGRAPHIC IMAGE Routine 09/11/2023 9:00 AM EDT Full PROPHYLAXIS - ADULT Routine 024 1:00 PM EDT PERIODIC ORAL EVALUATION - ESTABLISHED PATIENT Routine 07/02/2023 1:00 PM EDT INTRAORAL - COMPLETE SERIES OF RADIOGRAPHIC IMAGES Routine 05/03/2022 1:00 PM EST from Last 3 Months or Most Recently Relevant to Health Maintenance Insurance DENTAL - [place] , [address] [place] [address] , [address] [place] [address] , [address] [place] [address] , [address] [place] [address]
--- OUTSIDE RECORDS SUMMARY | 2024-05-11 14:34 | XMS_ITS | Encounter Summary ---
Author Organization [employer] [facility] Address [address] [place] [address] [address] [place] [address] Care Team Providers Care Bottom Loader Name Role Phone Unavailable Primary Care Provider Unavailabl e Encounter Details Date Type Department Care Team (Latest Contact Info) Description 08/30/2020 Abstract [facility] CONVERSIONS Dental, Provider, DDS Social History [...]
--- OUTSIDE RECORDS SUMMARY | 2024-05-11 14:34 | XMS_ITS | Continuity of Care Document ---
Author Organization [facility] Address [address] [address] Phone Care Team Providers Care Naval Surface Fire Support Planner Name Role Phone Rocío Olivas OT Unavailable Unavailable Advance Directives Directive Yes / No Effective Date File Name No Information Encounters Encounter Description Practice Location Reason(s) For Visit Diagnoses Date Provider [facility], [address] [address], [place], [place], [id number], [place] tel:[phone] [facility] No Information [address], [place], [place], [id number], [place]. tel:[phone] Family History Family Member Type Diagnosis Age At Onset No Information Payers Payer name Insurance type Covered constitution party ID Authoriza tion(s) No Information Social History Type Description Quantity Date Captured Comments Sex Male Smoking Status No Information Chief Complaint And Reason For Visit No Information History Of Present Illness Encounter Date Complaint History Of Prese nt Illness No Information Instructions Date Instruction Additional Infor mation No Information Assessments Type Assessment Date No Information
--- OUTSIDE RECORDS SUMMARY | 2024-05-11 14:34 | XMS_ITS | Encounter Summary ---
Author Organization [employer] [facility] Address [address] [place] [address] [address] [place] [address] Care Team Providers Care Business Intelligence Developer Name Role Phone Unavailable Primary Care Provider Unavailabl e Encounter Details Date Type Department Care Team (Late st Contact Info) Description 09/11/2023 Telephone [facility] ADULT DENTAL [address] [place], [place] [phone] Chanda Barakat DDS [address] [place], [place] [phone] Social History Tobacco Use Types Packs/Day Years [...]
== END 2024-05-11 11:47 | disposition home or self-care (01) ==
LOC: HO.XRAY 11:46
PROVIDERS: PCP Internal Medicine; Visit Provider Student in an Organized Health Care Education/Training Program
DX: M25.561 Pain in right knee (principal)
CPT/HCPCS: 73560

== ENCOUNTER → 2024-05-11 12:30 | Outpatient (BNV) | payer MEDICARE, SELFPAY | PROVIDERS: PCP Internal Medicine; Visit Provider Radiology Diagnostic Radiology | DX: M25.561 Pain in right knee (principal) | CPT/HCPCS: 73560 ==

== ENCOUNTER 2024-08-04 13:49 | Outpatient (AMB) | payer MEDICARE, MEDICAID, SELFPAY ==
--- NOTE | 2024-08-04 14:40 | MHC.OFFWIV ---
Intake Vital Signs 08/04/24 14:43 Height 6 ft 1 in Weight 187 lb 6 oz BMI 24.7 BP 130/80 Blood Pressure Location Lt brachial Position Sitting Respiration 16 Pulse 65 Pulse Source Pulse Oximeter Temp 97.8 F Temp Source Oral Pulse Oximetry (%) 98 Oxygen Delivery Method Room Air Intake Visit Reasons: EP-sore throat, ?sinus infection Intake Note: Pt is here today c/o sore throat, nasal congestion x4days Patient Tobacco Use Status: Current everyday Tobacco user Allergies No Known Allergies Allergy (Verified 04/29/24 14:19) HPI HPI Comments History of Present Illness Details History of Present Illness - The patient is a 69-year-old male presenting with symptoms of a sinus congestion and sinus pain for the past 4 days. - Reports symptoms persisting for four days including headache, tenderness in facial structures, dental and jaw pain. - Observes crusty discharge in the nasal passage, absent of green discharge. - He notes right-sided ear ache and jaw soreness. - Affirms having some tenderness in the sinuses with continuous progression of soreness and pain. - Denies fever or symptoms of a significant cough and reports being a regular smoker. - Previously attempted [id number] nasal sprays, noting ineffective relief. - Up-to-date on COVID-19 and influenza vaccinations. - He denies fever, chills, CP, SOB, abd pain, n/v/d, cough, or sick contacts. Physical Exam General: Cooperative, healthy appearing, comfortable, no acute distress and well developed Orientation: Patient oriented x3 Head: Tenderness noted, especially in the maxillary sinus area bilaterally. Ears: Hearing grossly normal bilaterally, left ear pain reported Nose: Crust noted in nasal passage, especially on the left side Face and sinus: Tenderness in the maxillary sinus area. Neck: Lymphadenopathy noted. Respiratory: Normal respiratory effort and able to speak in complete sentences. Clear to auscultation bilaterally Cardiovascular: Regular rate and rhythm. Normal S1 and S2 GI: Normal to inspection. Soft to palpation and nontender Skin: No rashes or lesions noted Patient was informed and verbally consented to the use of an ambient scribe for clinic note documentation during this visit. [facility] Medical History (Updated 04/29/24 @ 14:45 by Argentina Roman PA-C) Hx of cholecystitis Nicotine dependence, cigarettes, uncomplicated Diverticulosis Tubular adenoma of colon Urinary hesitancy due to benign prostatic hyperplasia Urinary incontinence, urge Nail discoloration Chronic low back pain with sciatica Hx of type B viral hepatitis Impaired fasting glucose Dyslipidemia Vitamin D deficiency Degenerative disc disease, lumbar Hx of hepatitis C Overweight Depression with anxiety Surgical History (Updated 12/11/23 @ 10:30 by Sushma Sandoval PA-C) History of liver biopsy History of colonoscopy History of hand surgery History of lumbar discectomy History of laparoscopic cholecystectomy (~2023) History of umbilical hernia repair (~2023) S/P hernia surgery Family History Father No problems noted. Mother No problems noted. Brother No problems noted. Son No problems noted. Sister Substance use disorder Mental health disorder Sister No problems noted. Social History Household Members: Significant Other Housing: Apartment Alcohol intake: former Patient Tobacco Use Status: Current everyday Tobacco user Tobacco use type: Cigarette Cigarette Packs Per Day: 1 Cigarettes Per Day: 20.0 Years Smoked: 50 e-Cigarette/Vaping Use: Never Used Second Hand Smoke Exposure: Yes Advance Directives Date on File: 09/16/23 service: No Current occupational status: employed Cognitive needs: No Hearing needs: No Vision needs: Yes Review of Systems Const All systems reviewed & are unremarkable except as noted in HPI and below Physical Exam Vital Signs: Last Vital Signs Temp 97.8 F 08/04/24 14:43 Pulse 65 08/04/24 14:43 Resp 16 08/04/24 14:43 BP 130/80 08/04/24 14:43 Pulse Ox 98 08/04/24 14:43 Oxygen Delivery Method Room Air 08/04/24 14:43 BMI result Body Mass Index 24.7 Assessment & Plan Assessment & Plan (1) Nasal congestion: Code(s): R09.81 - Nasal congestion Plan Most likely sinusitis vs URI vs allergic rhinitis vs covid vs flu Rapid was negative in the office Plan - Augmentin prescribed for bacterial sinusitis, to be taken twice daily. - Nasal spray provided to aid with nasal congestion relief. - Decongestant recommended for additional symptom relief at the patient's discretion. - Prescription sent to [facility] on [address] for patient's convenience and immediate access. - Advocation of routine monitoring of sinusitis symptoms, including potential worsening or non-improvement. - Encouraged consideration of smoking cessation due to tobacco use disorder. Orders: Orders AMB Rapid Strep Screen Today Z13.9 - Encounter for screening, unspecified Coding Level of Care Code Est Pt Level 3 (04121) Diagnoses Nasal congestion R09.81
[2024-08-04 14:43] VITALS: BP 130/80; PULSE 65; RESP 16; TEMP 36.6; O2SAT 98; BMI 24.7
== END 2024-08-04 15:29 | disposition home or self-care (01) ==
PROVIDERS: PCP Internal Medicine; Visit Provider Physician Assistant Medical
DX: R09.81 Nasal congestion (principal); J02.9 Acute pharyngitis, unspecified

== ENCOUNTER → 2024-08-04 13:49 | Outpatient (BNVA) | payer MEDICARE, MEDICAID, SELFPAY | PROVIDERS: PCP Internal Medicine; Visit Provider Physician Assistant Medical | DX: R09.81 Nasal congestion (principal) | CPT/HCPCS: 87880; 99212 ==

== ENCOUNTER 2024-11-09 11:58 | Outpatient (REF) | payer MEDICARE, MEDICAID, SELFPAY ==
--- OUTSIDE RECORDS SUMMARY | 2021-08-21 05:03 | XMS_ITS | Continuity of Care Document ---
Author Organization [facility] Address [address] [address] Phone Care Team Providers Care Rigger Helper Name Role Phone Rocío Olivas OT Unavailable Unavailable Advance Directives Directive Yes / No Effective Date File Name No Information Encounters Encounter Description Practice Location Reason(s) For Visit Diagnoses Date Provider [facility], [address] [address], [place], [place], [id number], [place] tel:[phone] [facility] No Information [address], [place], [place], [id number], [place]. tel:[phone] Family History Family Member Type Diagnosis Age At Onset No Information Payers Payer name Insurance type Covered republican ID Authoriza tion(s) No Information Social History Type Description Quantity Date Captured Comments Sex Male Smoking Status No Information Chief Complaint And Reason For Visit No Information History Of Present Illness Encounter Date Complaint History Of Prese nt Illness No Information Instructions Date Instruction Additional Infor mation No Information Assessments Type Assessment Date No Information
--- OUTSIDE RECORDS SUMMARY | 2024-11-05 15:30 | XMS_ITS | Encounter Summary ---
Author Organization [employer] [facility] Address [address] [facility] 7t [place] [address] Care Team Providers Care Public Health Registrar Name Role Phone Unavailable Primary Care Provider Unavailabl e Reason for Visit * Reason Comments Dental Pain Lower left side Encounter Details Date Type Department Care Team (Late st Contact Info) Description 11/05/2024 3:30 PM EDT Office Visit [facility] ADULT DENTAL [address] [place] [address] Christian Sheehan DDS [address] [place], [place] [phone] Social History Tobacco Use Types Packs/Day Years [...] y.o. male. Time Out: Date: 11/05/2024 Location: [facility] Tooth: #19 and #20 Procedure: Exam Verified the above with patient, faculty research assistant, and provider. Confirmed via patient's chart, intraorally and by radiographs. Marine Service Operator: not applicable Emergency examination done by Dr. Christian Sheehan DDS 69 y.o. year old male patient presents to clinic for Emergency exam. CONSENT FORM INITIALED & SIGNED BY THE PATIENT AND COUNTERSIGNED BY DR. Christian Sheehan DDS Chief Complaint: My tooth has been hurting right here [place]: Pain type: Short, triggered by biting Duration: <5 sec Scale of pain from 1 - 10: Not described Aggravating factors: Biting Relieving factors: None mentioned Pain radiating: No Postural variation: No Associated swelling: No Medical history: Reviewed in EHR Vital signs: There were no vitals taken for this visit. Allergies: Reviewed in EHR Medications: Reviewed in EHR Intraoral examination Existing latter day: Yes Decay: Yes Pocket depth: 3mm circumferential [...] Endodontics Provider: Dr. Christian Sheehan DDS Dental Traffic Law Attorney: Mario Edge Supervising dentist: Dr. Anabel Marie documented in this encounter Plan of Treatment Upcoming Encounters Date Type Department Care Team (Late st Contact Info) Description 12/13/2024 8:00 AM EDT Office Visit [facility] ADULT DENTAL [address] [place] [address] Dayton Garland DDS [address] [place] [address] documented as of this encounter Procedures Procedure Name Priority Date/Time Associated Diagnosis Comments 19,20 LIMITED ORAL EVALUATION - PROBLEM FOCUSED Routine 11/05/2024 3:30 PM EDT documented in this encounter Visit Diagnoses Not on filedocumented in this encounter
--- OUTSIDE RECORDS SUMMARY | 2024-11-08 15:00 | XMS_ITS | Encounter Summary ---
Author Organization [employer] Address [address] [facility] 7t [place] [address] Care Team Providers Care Washroom Attendant Name Role Phone Unavailable Primary Care Provider Unavailabl e Reason for Visit * Reason Comments Dental Pain Consult pain LL Encounter Details Date Type Department Care Team (Late st Contact Info) Description 11/08/2024 3:00 PM EDT Office Visit [facility] ADULT DENTAL [address] [place] [address] Marlon Eisenberg DDS [address] [place] [address] Social History Tobacco Use Types Packs/Day Years [...] as of this encounter Progress Notes * Marlon Eisenberg DDS - 11/08/2024 3:00 PM EDT Dental procedures in this visit D9310 - CONSULTATION - DIAGNOSTIC SERVICE PROVIDED BY DENTIST OR PHYSICIAN OTHER THAN REQUESTING DENTIST OR PHYSICIAN (Completed) Service provider: Marlon Eisenberg DDS Billing provider: Dayton Garland DDS Patient ID: Emanuel Mills is a 69 y.o. male. Time Out: Date: 11/08/2024 Location: [facility] Tooth: #19 Procedure: Exam Verified the above with patient, fast food assistant restaurant manager, and provider. Confirmed via patient's chart, intraorally and by radiographs. Bilingual Customer Service: not applicable Doctor's Note: Chief Complaint/Subjective: Patient presents for tooth #19. Endo Evaluation. He claims that he has not had symptoms today. Clinical Exam: Tooth #19 - Stage I mobility - Gingival Recession on the Buccal aspect, - Probing on Buccal 4 3 4, - Probing on Lingual 3 2 3 Testing: #19 (Affected Tooth) Percussion: Negative Palpation: Negative Cold Ice: Negative #32 (Control Tooth) Percussion: Negative Palpation: Negative Cold Ice: Negative #29 (Control Tooth) Percussion: Negative Palpation: Negative Cold Ice: Negative Diagnosis: Pulp Necrosis + Asymptomatic apical periodontitis Additional: Tooth #20 Extraction NV: RCT #[address] Garland Provider: Marlon Eisenberg DDS Nurse Case Management: Ayaka Moscoso Attending: Dr. Garland * Dayton Garland DDS - 11/08/2024 3:00 PM EDT Reviewed. Dayton Garland DDS documented in this encounter Plan of Treatment Upcoming Encounters Date Type Department Care Team (Late st Contact Info) Description 12/13/2024 8:00 AM EDT Office Visit [facility] ADULT DENTAL [address] [place] [address] Dayton Garland DDS [address] [place] [address] Scheduled Orders Name Type Priority Associated Diagnoses Orde r Schedule 20 20 EXTRACTION, ERUPTED TOOTH OR EXPOSED ROOT (ELEVATION/FORCEPS REMOVAL) Dental Routine [address] arting 11/08/2024 19 19 CROWN PREP Dental Routine 1 Occurr ences starting 11/08/2024 documented as of this encounter Procedures Procedure Name Priority Date/Time Associated Diagnosis Comments CONSULTATION - DIAGNOSTIC SERVICE PROVIDED BY DENTIST OR PHYSICIAN OTHER THAN REQUESTING DENTIST OR PHYSICIAN Routine 11/08/2024 3:00 PM EDT documented in this encounter Visit Diagnoses Not on filedocumented in this encounter
[2024-11-09 13:29] LABS: Hemoglobin A1C 135.0847 umol/L; Total Hemoglobin (HGBA1C) 3733.0388 umol/L
[2024-11-09 13:55] LABS: Alanine Aminotransferase 37 U/L (0-40); Anion Gap 10 (12-20); Aspartate Amino Transferase 33 U/L (5-37); Blood Urea Nitrogen 16 mg/dL (9-16); Calcium 9.1 mg/dL (8.4-10.2); Carbon Dioxide 25 mmol/L (22-29); Chloride 109 mmol/L (96-108); Cholesterol 131 mg/dL (<200); Estimated Glomerular Filt Rate > 60; HDL Cholesterol 51 mg/dL (>40); Potassium 4.3 mmol/L (3.3-5.1); Sodium 140 mmol/L (135-145); Triglycerides 45 mg/dL (<150)
--- OUTSIDE RECORDS SUMMARY | 2024-11-09 14:27 | XMS_ITS | Clinical Summary ---
Author Organization [employer] [facility] Address [address] [place] [address] 7[address] [place] [address] Care Team Providers Care Carbon Sequestration Plant Manager Name Role Phone Unavailable Primary Care Provider [...] by mouth in the morning. 3 Active acetaminophen (Tylenol) 500 MG tablet Take 1 tablet (500 mg) by mouth every 6 (six) hours if needed for mild pain for up to 20 doses. 20 tablet 5 Active chlorhexidine (Peridex) 0.12 % solution Swish 15 mL morning and night for 1 minute. Spit, do not swallow. Do not eat or drink for 30 minutes following use. 473 mL 5 Active Additional Information Patient not taking.Reported on 08/31/2024 amoxicillin (Amoxil) 500 MG capsule Take 1 capsule (500 mg) by mouth every 8 (eight) hours for 7 days. 21 capsule 5 11/13/19 25 Active Active Problems Problem Noted Date Diagnosed Date Dental infection 02/26/2022 Back problem 03/31/2013 Malignant neoplasm of liver 03/31/2013 Encounters Date Type Department Care Team Description 11/08/2024 3:00 PM EDT Office Visit [facility] ADULT D[facility]AL [address] [place] [address] Marlon Eisenberg, DDS 11/05/2024 3:30 PM EDT Office Visit [facility] AD[facility] [address] [place] [address] Christian Sheehan, DDS 09/20/2024 8:00 AM EDT Office Visit [facility] [address] [place] [address] Reg Huitron DMD Periodontal disease (Primary Dx) 08/31/2024 1:45 PM EDT Office Visit [facility] AD[facility] [address] [place] [address] Reg Huitron DMD Full coverage crown needed for root canal-treated tooth (Primary Dx) 08/18/2024 Telephone [facility] [address] [place] [address] Reg Huitron DMD 08/17/2024 3:00 PM EDT Office Visit [facility] [address] [place] [address] Reg Huitron DMD Open margin on tooth religious (Primary Dx) from Last 3 Months Social History Tobacco [...] Sign Reading Time Taken Comments Blood Pressure 108/70 09/20/2024 8:15 AM EDT Pulse 69 06/28/2024 8:11 AM EDT Temperature - - Respiratory Rate - - Oxygen Saturation - - Inhaled Oxygen Concentration - - Weight - - Height - - Body Mass Index - - Plan of Treatment Upcoming Encounters Date Type Department Care Team (Late st Contact Info) Description 12/13/2024 8:00 AM EDT Office Visit [facility] ADULT D[facility] [address] [place] [address] Dayton Garland, DDS [address] [place] [address] Health Maintenance Due Date Last Done Comments [...] of 3 - Risk 3-dose series) 2016 Dental Oral Exam 01/03/2024 07/02/2023, 05/2022, 08/30/2020 Dental Prophylaxis 01/03/2024 07/02/2023, 08/30/2020 Zoster Vaccines (2 of 2) 05/06/2024 03/11/2024 COVID-19 Vaccine ( season) 2024 12/08/2022, 02/21/2021, 06/10/2020, Additional history exists Influenza Vaccine (#1) 2024 , 12/08/2022, 02/19/2021, Additional history exists Dental X-Ray: Full Mouth 05/04/2025 05/03/2022, 11/01 Dental X-Ray: Bitewings 05/25/2025 05/25/19, 05/19/2024, 09/11/2023, Additional history exists Tobacco Screening 11/05/2025 11/05/2024 DTaP/Tdap/Td Vaccines (3 - Td or Tdap) 12/16/2028 12/16/2018, 10/17/2017 Pneumococcal Vaccine: 50+ Years Completed 12/08/2022, 10/29/2021 RSV Patients and Patients Aged 60 years or older Completed 02/07/2023 HIB Vaccines Aged Out No longer eligi ble based on patient's age to complete this topic HPV Vaccines Aged Out No longer eligi ble based on patient's age to complete this topic IPV Vaccines Aged Out No longer eligi ble based on patient's age to complete this topic Meningococcal B Vaccine Aged Out No l onger eligible based on patient's age to complete [...] OR PHYSICIAN Routine 11/08/2024 3:00 PM EDT 19,20 LIMITED ORAL EVALUATION - PROBLEM FOCUSED Routine 11/05/2024 3:30 PM EDT 12 EXTRACTION, ERUPTED TOOTH OR EXPOSED ROOT (ELEVATION/FORCEPS REMOVAL) Routine 09/20/2024 8:00 AM EDT Periodontal disease 31 CROWN - PORCELAIN FUSED TO PREDOMINANTLY BASE METAL Routine 08/31/2024 1:45 PM EDT Full coverage crown needed for root canal-treated tooth NO CHARGE - REDO PROCEDURE Routine 08/17/2024 3:00 PM EDT Open margin on tooth religious BITEWING - SINGLE RADIOGRAPHIC IMAGE Routine 05/24/2024 11:30 AM EDT Full PROPHYLAXIS - ADULT Routine 024 1:00 PM EDT PERIODIC ORAL EVALUATION - ESTABLISHED PATIENT Routine 07/02/2023 1:00 PM EDT INTRAORAL - COMPLETE SERIES OF RADIOGRAPHIC IMAGES Routine 05/03/2022 1:00 PM EST from Last 3 Months or Most Recently Relevant to Health Maintenance Insurance DENTAL - [place] , [address] [place] [id number]
--- OUTSIDE RECORDS SUMMARY | 2024-11-09 14:27 | XMS_ITS | Encounter Summary ---
Author Organization [employer] [facility] Address [address] [place] [address] [address] [place] [address] Care Team Providers Care Endodontist Name Role Phone Unavailable Primary Care Provider Unavailabl e Encounter Details Date Type Department Care Team (Late st Contact Info) Description 09/11/2023 Telephone [facility] ADULT DENTAL [address] [facility] [place], [place] [phone] Chanda Barakat DDS Social History Tobacco Use Types Packs/Day [...] Description 12/13/2024 8:00 AM EDT Office Visit [facility] ADULT DENTAL [address] [place] [address] Dayton Garland DDS [address] [place] [address] documented as of this encounter Visit Diagnoses Not on filedocumented in this encounter
--- OUTSIDE RECORDS SUMMARY | 2024-11-09 14:27 | XMS_ITS | Encounter Summary ---
Author Organization [employer] [facility] Address [address] [place] [address] [address] [place] [address] Care Team Providers Care Radiologist Chief Of Breast Imaging Name Role Phone Unavailable Primary Care Provider Unavailabl e Encounter Details Date Type Department Care Team (Latest Contact Info) Description 08/30/2020 Abstract [facility] CONVERSIONS Dental, Provider, DDS Social History Tobacco Use Types Packs/Day Years Used Date Smoking Tobacco: Never Assessed Sex and Gender Information Value Date Recorded Sex Assigned at Male 12/31/2021 10:23 AM EDT Legal Sex Male 10:23 AM EDT Gender Identity Male 12/31/2021 10:23 AM EDT Sexual Orientation Don't know 12/31/2021 10 :23 AM EDT documented as of this encounter Plan of Treatment Upcoming Encounters Date Type Department Care Team (Late st Contact Info) Description 12/13/2024 8:00 AM EDT Office Visit [facility] ADULT D[facility] [address] [place] [address] Dayton Garland, DDS [address] [place] [address] documented as of this encounter Visit Diagnoses Not on filedocumented in this encounter
== END 2024-11-09 11:59 | disposition home or self-care (01) ==
LOC: HO.HMGCLDS 11:58
PROVIDERS: PCP Internal Medicine; Visit Provider Internal Medicine
DX: E78.5 Hyperlipidemia, unspecified (principal); R73.01 Impaired fasting glucose; E66.3 Overweight
CPT/HCPCS: 36415; 80048; 80061; 83036; 84450; 84460

== ENCOUNTER 2024-11-11 14:14 | Outpatient (AMB) | payer MEDICARE, SELFPAY ==
--- OUTSIDE RECORDS SUMMARY | 2021-08-21 05:03 | XMS_ITS | Continuity of Care Document ---
Author Organization [facility] Address [address] [address] Phone Care Team Providers Care Sound Ranging Crewmember Name Role Phone Rocío Olivas OT Unavailable Unavailable Advance Directives Directive Yes / No Effective Date File Name No Information Encounters Encounter Description Practice Location Reason(s) For Visit Diagnoses Date Provider [facility], [address] [address], [place], [place], [id number], [place] tel:[phone] [facility] No Information [address], [place], [place], [id number], [place]. tel:[phone] Family History Family Member Type Diagnosis Age At Onset No Information Payers Payer name Insurance type Covered libertarian ID Authoriza tion(s) No Information Social History Type Description Quantity Date Captured Comments Sex Male Smoking Status No Information Chief Complaint And Reason For Visit No Information History Of Present Illness Encounter Date Complaint History Of Prese nt Illness No Information Instructions Date Instruction Additional Infor mation No Information Assessments Type Assessment Date No Information
--- OUTSIDE RECORDS SUMMARY | 2024-11-05 15:30 | XMS_ITS | Encounter Summary ---
Author Organization [employer] [facility] Address [address] [facility] [address]t [place] [address] Care Team Providers Care Driver Courier Name Role Phone Unavailable Primary Care Provider Unavailabl e Reason for Visit * Reason Comments Dental Pain Lower left side Encounter Details Date Type Department Care Team (Late st Contact Info) Description 11/05/2024 3:30 PM EDT Office Visit [facility] ADULT DENTAL [address] [place] [address] Christian Sheehan DDS [address] [place], [place] [phone] Social History Tobacco Use Types Packs/Day Years [...] AM EDT documented as of this encounter Progress Notes * Christian Sheehan DDS - 11/05/2024 3:30 PM EDT Dental procedures in this visit D0140 - LIMITED ORAL EVALUATION - PROBLEM FOCUSED 19,20 (Completed) Service provider: Christian Sheehan DDS Billing provider: Anabel Marie DDS Patient ID: Emanuel Mills is a 69 y.o. male. Time Out: Date: 11/05/2024 Location: [facility] Tooth: #19 and #20 Procedure: Exam Verified the above with patient, lead assistant manager, and provider. Confirmed via patient's chart, intraorally and by radiographs. Precision Dancer: not applicable Emergency examination done by Dr. Christian Sheehan DDS 69 y.o. year old male patient presents to clinic for Emergency exam. CONSENT FORM INITIALED & SIGNED BY THE PATIENT AND COUNTERSIGNED BY DR. Christian Sheehan DDS Chief Complaint: My tooth has been hurting right here [place]: Pain type: Short, triggered by biting Duration: <5 sec Scale of pain from 1 - 10: Not described Aggravating factors: Biting Relieving factors: None mentioned Pain radiating: No Postural variation: No Associated swelling: No Medical history: Reviewed in EHR Vital signs: There were no vitals taken for this visit. Allergies: Reviewed in EHR Medications: Reviewed in EHR Intraoral examination Existing zoroastrianism: Yes Decay: Yes Pocket depth: 3mm circumferential to the chief complaint area Vestibular tenderness - Light Intraoral swelling - None Pus discharge - No Radiograph: Yes Radiographic examination: Presents PARL on 19-20 with furcal involvement on 19. Diagnosis: Undefined. Patient symptoms and radiographic presentations are subjective of an Symptomatic Irreversible Pulpitis with a Symptomatic Apical Periodontitis. No cold test performed, full endodontic evaluation will be performed during next consultation visit with endodontics. Patient placed on antibiotics. Emergency treatment rendered: None Discussion with patient: Patient was recommended a consult with endodontics for possible RCT treatments on both 19 &20. Patient is unsure about keeping both teeth and observed the possibility of having one extracted (19) and keeping the other while proceeding with prosthetic treatment for toothreplacement. It was advised that endo specialist must observe both teeth to review prognosis and janee e the final determination of treatment of the teeth in question. Rx: Amoxicillin 500mg Patient satisfied, left in stable condition NV: Consultation with Endodontics Provider: Dr. Christian Sheehan DDS Dental Wirer: Mario Edge Supervising dentist: Dr. Anabel Marie * Anabel Marie DDS - 11/05/2024 3:30 PM EDT I have reviewed the documentation made by the rendering provider, Christian Sheehan DDS, and approve their chart entries for this visit. KYLE Osorio DDS documented in this encounter Plan of Treatment Upcoming Encounters Date Type Department Care Team (Late st Contact Info) Description 12/13/2024 8:00 AM EDT Office Visit [facility] ADULT DENTAL [address] [place] [address] Dayton Garland DDS [address] [place] [address] documented as of this encounter Procedures Procedure Name Priority Date/Time Associated Diagnosis Comments 19,20 LIMITED ORAL EVALUATION - PROBLEM FOCUSED Routine 11/05/2024 3:30 PM EDT documented in this encounter Visit Diagnoses Not on filedocumented in this encounter
--- OUTSIDE RECORDS SUMMARY | 2024-11-08 15:00 | XMS_ITS | Encounter Summary ---
Author Organization [employer] Address [address] [facility] 7t [place] [address] Care Team Providers Care Onion Farmer Name Role Phone Unavailable Primary Care Provider Unavailabl e Reason for Visit * Reason Comments Dental Pain Consult pain LL Encounter Details Date Type Department Care Team (Late st Contact Info) Description 11/08/2024 3:00 PM EDT Office Visit [facility] ADULT DENTAL [address] [place] [address] Marlon Eisenberg DDS [address] [place] [address] Social History Tobacco Use Types Packs/Day Years [...] y.o. male. Time Out: Date: 11/08/2024 Location: [facility] Tooth: #19 Procedure: Exam Verified the above with patient, players assistant, and provider. Confirmed via patient's chart, intraorally and by radiographs. Food And Beverage Checker: not applicable Doctor's Note: Chief Complaint/Subjective: Patient [...] with Dr. Garland Provider: Marlon Eisenberg DDS Shirt Turner: Ayaka Moscoso Attending: Dr. Garland * Dayton Garland DDS - 11/08/2024 3:00 PM EDT Reviewed. Dayton Garland DDS documented in this encounter Plan of Treatment Upcoming Encounters Date Type Department Care Team (Late st Contact Info) Description 12/13/2024 8:00 AM EDT Office Visit [facility] ADULT DENTAL [address] [place] [address] Dayton Garland DDS [address] [place] [address] Scheduled Orders Name Type Priority Associated Diagnoses [...]
[2024-11-11 14:36] VITALS: BP 126/70; PULSE 106; RESP 16; TEMP 36.7; O2SAT 97; BMI 24.3
--- NOTE | 2024-11-11 14:36 | MHC.PC.OV ---
Vital Signs 11/11/24 14:36 Height 6 ft 1 in Weight 184 lb BMI 24.3 BP 126/70 Blood Pressure Location Lt brachial Position Sitting Respiration 16 Pulse 106 H Pulse Source Pulse Oximeter Temp 98.0 F Temp Source Oral Pulse Oximetry (%) 97 Oxygen Delivery Method Room Air Intake Visit Reasons: annual visit Intake Note: Pt is here today for his PE: last colonoscopy 07/31/23 Allergies No Known Allergies Allergy (Verified 11/11/24 15:05) Medication List - Last Reconciled 11/11/24 by Maryellen Gregg MD amoxicillin 500 mg PO TID fluticasone propionate 50 mcg/actuation 1 spray intranasal Q12H 7 days gabapentin 600 mg PO TID Lactobacillus rhamnosus GG (Culturelle) 1 cap PO DAILY rosuvastatin 5 mg PO BEDTIME tamsulosin 0.4 mg PO BEDTIME 90 days venlafaxine ER 150 mg PO DAILY Tobacco use date assessed: 11/11/24 Fall risk assessment: No Falls in past year Last assessed Fall Risk: 11/11/24 Dental Screening Dental Screen Date: 11/11/24 Did you have a dental visit in the last 12 months?: Yes Did you have a dental problem in the last 6 months where you did not have access to dental care?: Yes Was dental information given to patient?: Patient has dentist HPI annual visit HPI Details 69 year-old male with PMH of depression and anxiety followed at [facility], hyperlipidemia, impaired fasting glucose degenerative disc disease in lumbar spine, benign prostatic hyperplasia, and history of cholecystitis status post cholecystectomy approximately a month ago, here today for his physical exam. Up-to-date with his screening colonoscopy done last year with normal results, due for recheck again in 2033. Currently followed by Ellie bran for lumbar degenerative disease, scheduled to undergo nerve root injection at L4 level with follow-up scheduled in 2 weeks just as frequent efficacy The patient is experiencing significant hip pain, with plans for further orthopedic evaluation if current management is ineffective. Has been done prostatic hyperplasia currently followed by Dr. Rich [facility] Medical History Hx of cholecystitis Nicotine dependence, cigarettes, uncomplicated Diverticulosis Tubular adenoma of colon Urinary hesitancy due to benign prostatic hyperplasia Urinary incontinence, urge Nail discoloration Chronic low back pain with sciatica Hx of type B viral hepatitis Impaired fasting glucose Dyslipidemia Vitamin D deficiency Degenerative disc disease, lumbar Hx of hepatitis C Overweight Depression with anxiety Surgical History History of liver biopsy History of colonoscopy History of hand surgery History of lumbar discectomy History of laparoscopic cholecystectomy (~2023) History of umbilical hernia repair (~2023) S/P hernia surgery Family History Father No problems noted. Mother No problems noted. Brother No problems noted. Son No problems noted. Sister Substance use disorder Mental health disorder Sister No problems noted. Social History Household Members: Significant Other Housing: Apartment Alcohol intake: former Patient Tobacco Use Status: Current everyday Tobacco user Tobacco use type: Cigarette Cigarette Packs Per Day: 1 Cigarettes Per Day: 20.0 Years Smoked: 50 e-Cigarette/Vaping Use: Never Used Second Hand Smoke Exposure: Yes Advance Directives Date on File: 09/16/23 service: No Current occupational status: employed Cognitive needs: No Hearing needs: No Vision needs: Yes Questionnaire PHQ-9 Over the last 2 weeks, how often have you been bothered by any of the following problems? 1. Little interest or pleasure in doing things: not at all 2. Feeling down, depressed, or hopeless: several days 3. Trouble falling or staying asleep, or sleeping too much: not at all 4. Feeling tired or having little energy: several days 5. Poor appetite or overeating: several days 6. Feeling bad about yourself - or that you are a failure or have let yourself or your family down: not at all 7. Trouble concentrating on things, such as reading the newspaper or watching television: not at all 8. Moving or speaking so slowly that other people could have noticed. Or the opposite - being so fidgety or restless that you have been moving around a lot more than usual: not at all 9. Thoughts that you would be better off or of hurting yourself in some way: not at all Total score: 3 Depression Screening Interpretation: Positive (Goes to [facility]) Depression Screening Follow-up: Existing condition, In treatment and Community Mental Health Worker F/U Depression Screening Done: Yes 23301 - PHQ-9 Billing: Yes Source: Developed by Drs. Emanuel Mcmahon, Mirna Floyd, Florin Cervantes and colleagues, with an educational london from [employer]. Thrive Questionnaire Date Thrive assessed: 11/11/24 I am a: Patient What is your living situation today?: I choose not to answer this question Within the past 12 months, did the food you bought not last and you didn't have the money to get more?: I choose not to answer this question Within the past 12 months, did you worry whether your food would run out before you got money to buy more?: I choose not to answer this question Do you have trouble paying for medicines?: I choose not to answer this question Do you have trouble getting transportation to medical appointments?: No Do you have trouble paying your heating and electricity bill?: I choose not to answer this question Do you have trouble taking care of your child, family member or friend?: I choose not to answer this question Do you have trouble with day-to-day activities such as bathing, preparing meals, shopping, managing finances, etc.?: I choose not to answer this question Are you currently unemployed and looking for a job?: I choose not to answer this question Are you interested in more education?: I choose not to answer this question Please select the resources that you would like help with: None Currently or been in a relationship where the following occur: No concerns reported THRIVE Score: 0 AUDIT C Alcohol Use Questionnaire (AUDIT-C) 1. How often do you have a drink containing alcohol?: Never 3. How often do you have six or more drinks on one occasion?: Never Total Score: 0 Score Reviewed/Action Taken: Yes DAVID-7 AMB Questionnaire DAVID-7 Date DAVID - 7 assessed: 11/11/24 Feeling nervous, anxious, or on edge: 0 = Not at all Not being able to stop or control worryin = Not at all Worrying too much about different things: 0 = Not at all Trouble relaxin = Not at all Being so restless that it is hard to sit still: 0 = Not at all Becoming easily annoyed or irritable: 0 = Not at all Feeling afraid as if something awful might happen: 0 = Not at all Total DAVID-7 score (0-4 normal; 5-9 mild; 10-14 moderate; 15-21 severe): 0 Source: Developed by Drs. Emanuel Mcmahon, Minra Floyd, Florin Cervantes and colleagues, with an educational london from [employer]. DAVID-7 Assessment Billing DAVID-7 Assessment Tool: DAVID-7 Assessment 97457 Review of Systems Const Reports no additional complaints Eyes Denies change in vision ENT Reports no additional complaints and Reports Normal hearing present Card Denies chest pain, Denies dyspnea and Denies dyspnea on exertion Resp Denies chest congestion, Denies cough, Denies dyspnea and Denies dyspnea on exertion GI Denies abdominal pain, Denies melena, Denies hematochezia, Denies change in bowel habits and Denies heartburn Denies hematuria and Denies difficulty urinating Musc Reports as per HPI, Reports back pain (Followed by [facility]) and Denies limited range of motion Skin/Breast Denies lesions, Denies rash and Denies wounds Neuro Reports Normal hearing present, Denies focal weakness, Denies convulsions and Denies Sensory deficit (Neuro) Psych Reports no additional complaints Endo Reports no additional complaints Gama/Lymph Reports no additional complaints Aller/Immun Reports no additional complaints Physical exam (Primary Care) Vital Signs: Last Vital Signs Temp 98.0 F 11/11/24 14:36 Pulse 106 H 11/11/24 14:36 Resp 16 11/11/24 14:36 BP 126/70 11/11/24 14:36 Pulse Ox 97 11/11/24 14:36 Oxygen Delivery Method Room Air 11/11/24 14:36 BMI result Body Mass Index 24.3 Tobacco/Smoking Status: Tobacco use Status Tobacco use date assessed 11/11/24 11/11/24 14:40 Patient Tobacco Use Status Current everyday Tobacco 11/11/24 14:40 Tobacco use type Cigarette 11/11/24 14:40 e-Cigarette/Vaping Use Never Used 11/11/24 14:40 Depression Screening Interpretation: Positive (Goes to [facility]) Depression Screening Follow-up: Existing condition, In treatment and Community Mental Health Worker F/U Thrive Assessment: Date of Thrive Assessment Date Thrive assessed 11/11/24 11/11/24 14:40 Currently or been in a relationship where the following occur: No concerns reported Const General: no acute distress and alert Nutritional Appearance: overweight Orientation/consciousness: patient oriented x3 HENMT Head: Yes normocephalic Ears: hearing grossly normal bilaterally, external ears normal, TM's normal bilaterally and EAC's normal General nose exam: Normal external nose present Face and sinus: Yes face symmetric Mouth: Normal oral and palatal mucosa present and moist mucous membranes Eyes General: appearance normal, both eyes and all related structures Neck Neck: Yes full ROM, Yes no lymphadenopathy and Yes supple Chest Chest palpation & inspection: normal inspection of the chest and normal palpation of entire chest wall Resp Effort & Inspection: normal respiratory effort and able to speak in complete sentences Auscultation: clear to auscultation bilaterally Cardio Palpation: normal PMI Rate: regular rate Rhythm: regular rhythm Heart sounds: S1 normal heart sound present and S2 normal heart sound present GI Palpation (GI): Soft to palpation, nontender, no guarding, no masses and Other GI palpation findings present (Diastasis recti present) Auscultation: normal bowel sounds General: Yes no CVA tenderness Back/Spine/Pelvis Back: no CVA tenderness Thoracic/Lumbar Spine: Lasegue's sign negative and paraspinal muscle tenderness bilaterally in the lower lumbar Skin General skin exam: no rashes or lesions noted Neuro General: patient oriented x3, gait normal, moves all extremities, Normal light touch and pain sensation, no focal motor deficits and CN's II-XI intact bilaterally Cranial nerves: Yes Normal hearing present Gait exam (Neuro): Normal gait present Sensory Exam: No Sensory deficit (Neuro) Extrem General: Yes full ROM, Yes no joint enlargement, Yes no pedal edema, Yes no calf tenderness and Yes normal gait Psych Appearance: grossly normal and well kempt Mental Status: mental status grossly normal Speech and movement: Normal speech and movement present Affect: normal affect Results Reviewed Results Reviewed: Laboratory Tests 11/09/24 12:06 Estimat Average Glucose 111 Hemoglobin A1c % 5.5 Name: Emanuel Mills Age/Sex: 69/M : 1955 Unit#: [id number] Attend Dr: Maryellen Gregg MD Re11/09/24 Status: DEP REF Location: [facility] Disch: SPEC : [id number] ALVERTO: 11/09/24-1203 STATUS: COMP REQ : [id number] RECD: 11/09/[address]: Maryellen Gregg MD COMP: 11/09/24 ENTERED: 11/09/24-[address] [facility] [address]: ORDERED: Met Prof Fast, AST, ALT, Lipid Panel Test Result Flag Reference Sodium 140 135-145 mmol/L Potassium 4.3 3.3-5.1 mmol/L CL 109 H 96-108 mmol/L CO2 25 22-29 mmol/L Gap 10 L 12-20 BUN 16 9-16 mg/dL Creat 0.90 0.5-1.4 mg/dL eGFR > 60 Chronic Kidney Disease: Estimated GFR < 60 mL/min/1.73m2 Severe Kidney Disease: Estimated GFR < 15 mL/min/1.73m2 FBS 102 H 60-99 mg/dL A fasting glucose from 100-125 mg/dl is considered impaired (pre-diabetes). CA 9.1 # 8.4-10.2 mg/dL AST (GOT) 33 5-37 U/L ALT (GPT) 37 0-40 U/L Triglyceride 45 <150 mg/dL Desirable Triglyceride: less than 150 mg/dL Borderline High Triglyceride 150-199 mg/dL High Triglyceride: 200-499 mg/dL Very High Triglyceride: greater than or equal to 5OO mg/dL Cholesterol 131 <200 mg/dL Desirable Cholesterol: less than 200 mg/dL Borderline High Cholesterol: 200-239 mg/dL High Cholesterol: greater than 239 mg/dL LDL Calculated 71 <100 mg/dL Desirable LDL: less than 100 mg/dL Near Optimal/Above Optimal LDL: 110-129 mg/dL Borderline High LDL: 130-159 mg/dL High LDL: 160-189 mg/dL Very High LDL: greater than or equal to 190 mg/dL HDL 51 >40 mg/dL Desirable HDL: greater than 40 mg/dL Note: This HDL assay may give artificially low results in patients with liver disease. Coding Level of Care Code Est Pt Prev Care >65y(22938) Diagnoses Annual visit for general adult medical examination with abnormal findings Z00.01 Dyslipidemia E78.5 Impaired fasting glucose R73.01 Urinary hesitancy due to benign prostatic hyperplasia N40.1; R39.11 Degenerative disc disease, lumbar M51.36 Nicotine dependence, cigarettes, uncomplicated F17.210 Additional Codes DAVID-7 Assessment Billing - DAVID-7 Assessment Tool: DAVID-7 Assessment 97837 ([id number]) PHQ-9 - 10000 - PHQ-9 Billing: Yes ([id number]) Assessment & Plan Assessment & Plan (1) Annual visit for general adult medical examination with abnormal findings: Code(s): Z00.01 - Encounter for general adult medical examination with abnormal findings Plan: Reviewed recent fasting labs Recommended dental visit every 6 months and regular eye exams, at least every 2 years. Take adequate calcium in diet and vitamin-D 3 at 2000 IU per cap once a day, in addition to weight-bearing exercises to help maintain good muscle tone and weight control. Instructed to do self testicular exam check for any mass. Up-to-date with his screening colonoscopy. Advised to get updated flu vaccine and COVID vaccine booster, up-to-date with his RSV and pneumonia vaccination, reminded to get his 2nd shingles vaccine (2) Dyslipidemia: Code(s): E78.5 - Hyperlipidemia, unspecified Category: Medical Plan: Recent fasting lipids are within normal limits, continued on rosuvastatin 5 mg daily (3) Impaired fasting glucose: Code(s): R73.01 - Impaired fasting glucose Category: Medical Plan: Your previous fasting blood sugars were elevated above 100 mg/dL. Impaired glucose metabolism increases the risk for developing diabetes mellitus type 2, as well as heart attack and stroke later on. Lifestyle changes that promotes weight loss, healthy eating habits, and regular exercise are important, and can prevent the progression to diabetes (4) Urinary hesitancy due to benign prostatic hyperplasia: Code(s): N40.1 - Benign prostatic hyperplasia with lower urinary tract symptoms; R39.11 - Hesitancy of micturition Category: Medical Plan: Followed by Urology (5) Degenerative disc disease, lumbar: Code(s): M51.36 - Other intervertebral disc degeneration, lumbar region Category: Medical Plan: Currently followed at [facility] (6) Nicotine dependence, cigarettes, uncomplicated: Comment: (smoker- 1-2ppd) Code(s): F17.210 - Nicotine dependence, cigarettes, uncomplicated Category: Medical Plan: Patient strongly advised to stop smoking, as smoking damages blood vessels, degenerative of joints and spine, damage to lungs and heart., predisposes to developing certain cancers like lung, breast, bladder, colon. Recommended to try decreasing cigarette use by 1-2 cigarettes a day. Advised to monitor what triggers are for smoking so that this can be discussed on the next office visit. We can discuss different options to quit smoking when ready.
--- OUTSIDE RECORDS SUMMARY | 2024-11-11 18:02 | XMS_ITS | Encounter Summary ---
Author Organization [employer] [facility] Address [address] [place] [address] [address]t [place] [address] Care Team Providers Care Transportation Supervisor Name Role Phone Unavailable Primary Care Provider Unavailabl e Encounter Details Date Type Department Care Team (Late st Contact Info) Description 09/11/2023 Telephone [facility] ADULT DENTAL [address] [place], [place] [phone] Chanda Barakat DDS Social History Tobacco Use [...] Description 12/13/2024 8:00 AM EDT Office Visit [facility] ADULT DENTAL [address] [place] [address] Dayton Garland DDS [address] [place] [address] documented as of this encounter Visit Diagnoses Not on filedocumented in this encounter
--- OUTSIDE RECORDS SUMMARY | 2024-11-11 18:02 | XMS_ITS | Encounter Summary ---
Author Organization [employer] [facility] Address [address] [place] [address] [address]t [place] [address] Care Team Providers Care Oil Drilling Engineer Name Role Phone Unavailable Primary Care Provider Unavailabl e Encounter Details Date Type Department Care Team (Latest Contact Info) Description 08/30/2020 Abstract [facility] CONVERSIONS Dental, Provider, DDS Social History [...] 12/13/2024 8:00 AM EDT Office Visit [facility] ADULT DENTAL [address] [place] [address] Dayton Garland, DDS [address] [place] [address] documented as of this encounter Visit Diagnoses Not on filedocumented in this encounter
--- OUTSIDE RECORDS SUMMARY | 2024-11-11 18:02 | XMS_ITS | Clinical Summary ---
Author Organization [facility] [facility] Address [address] [place] [address] [address] [place] [address] Care Team Providers Care Director Of Manufacturing Name Role Phone Unavailable Primary Care Provider [...] Description 11/08/2024 3:00 PM EDT Office Visit [facility] ADULT DENTAL [address] [place] [address] Marlon Eisenberg, DDS 11/05/2024 3:30 PM EDT Office Visit [facility] ADULT DENTAL [address] [place] [address] Christian Sheehan, DDS 09/20/2024 8:00 AM EDT Office Visit [facility] ADULT DENTAL [address] [place] [address] Reg Huitron DMD Periodontal disease (Primary Dx) 08/31/2024 1:45 PM EDT Office Visit [facility] ADULT DENTAL [address] [place] [address] Reg Huitron DMD Full coverage crown needed for root canal-treated tooth (Primary Dx) 08/18/2024 Telephone [facility] ADULT DENTAL [address] [place] [address] Reg Huitron DMD 08/17/2024 3:00 PM EDT Office Visit [facility] ADULT DENTAL [address] [place] [address] Reg Hiutron DMD Open margin on tooth mu-ism (Primary Dx) from Last 3 Months Social [...] Description 12/13/2024 8:00 AM EDT Office Visit [facility] ADULT DENTAL [address] [place] [address] Dayton Garland, DDS [address] [place] [address] Health Maintenance Due Date Last Done Comments [...] 3:00 PM EDT Open margin on tooth mu-ism BITEWING - SINGLE RADIOGRAPHIC IMAGE Routine 05/24/2024 11:30 AM EDT Full PROPHYLAXIS - ADULT Routine 024 1:00 PM EDT PERIODIC ORAL EVALUATION - ESTABLISHED PATIENT Routine 07/02/2023 1:00 PM EDT INTRAORAL - COMPLETE SERIES OF RADIOGRAPHIC IMAGES Routine 05/03/2022 1:00 PM EST from Last 3 Months or Most Recently Relevant to Health Maintenance Insurance [place]ENT[place] - [place] , [address] [place] [id number]
== END 2024-11-11 15:24 | disposition home or self-care (01) ==
LOC: HO.HMCC 14:15
PROVIDERS: PCP Internal Medicine; Visit Provider Internal Medicine
DX: Z00.01 Encounter for general adult medical examination with abnormal findings (principal); E78.5 Hyperlipidemia, unspecified; R73.01 Impaired fasting glucose; N40.1 Benign prostatic hyperplasia with lower urinary tract symptoms; R39.11 Hesitancy of micturition; M51.369 Other intervertebral disc degeneration, lumbar region without mention of lumbar back pain or lower extremity pain; F17.210 Nicotine dependence, cigarettes, uncomplicated

== ENCOUNTER → 2024-11-11 14:14 | Outpatient (BNVA) | payer MEDICARE, SELFPAY | PROVIDERS: PCP Internal Medicine; Visit Provider Internal Medicine | DX: Z00.01 Encounter for general adult medical examination with abnormal findings (principal); E78.5 Hyperlipidemia, unspecified; R73.01 Impaired fasting glucose; N40.1 Benign prostatic hyperplasia with lower urinary tract symptoms; R39.11 Hesitancy of micturition; M51.369 Other intervertebral disc degeneration, lumbar region without mention of lumbar back pain or lower extremity pain; F32.9 Major depressive disorder, single episode, unspecified; F41.9 Anxiety disorder, unspecified; F17.210 Nicotine dependence, cigarettes, uncomplicated; Z79.899 Other long term (current) drug therapy; Z13.31 Encounter for screening for depression; Z13.39 Encounter for screening examination for other mental health and behavioral disorders | CPT/HCPCS: 96127; 99397 ==

== ENCOUNTER 2024-12-15 14:22 | Outpatient (AMB) | payer MEDICARE, SELFPAY ==
--- OUTSIDE RECORDS SUMMARY | 2024-12-09 10:02 | XMS_ITS | Continuity of Care Document ---
Author Organization [facility] Address [address] [address] Phone Care Team Providers Care Nurse Administrator Name Role Phone Yolanda Lieberman NP Unavailable Unavailable Advance Directives Directive Yes / No Effective Date File Name No Information Encounters Encounter Description Practice Location Reason(s) For Visit Diagnoses Date Provider [facility], [address], [id number], [place] tel:[phone] [address] [place] [address] No Information 2024 Luisana Guerrero. [address] [place], [address], [place]. tel:[phone] Family History Family Member Type Diagnosis Age [...]
[2024-12-15 14:42] VITALS: BP 110/62; PULSE 102; TEMP 37.2; O2SAT 98; BMI 24.8
--- NOTE | 2024-12-15 14:42 | AM.OFFWIN_ITS ---
Intake Vital Signs 12/15/24 14:42 Height 6 ft 1 in Weight 188 lb BMI 24.8 BP 110/62 Blood Pressure Location Rt brachial Position Sitting Pulse 102 H Pulse Source Pulse Oximeter Temp 98.9 F Temp Source Oral Pulse Oximetry (%) 98 Oxygen Delivery Method Room Air Intake Visit Reasons: EP-unable to urinate Intake Note: pt presents with dysuria with urine urgency but unable to fully empty bladder x3 days- h/o BPH Patient Tobacco Use Status: Current everyday Tobacco user Allergies No Known Allergies Allergy (Verified 12/15/24 14:44) Do you need a note to return to daycare/school/sports/work: No HPI HPI Comments History of Present Illness Details History of Present Illness - The patient is a 69-year-old male pres enting with urinary retention - The patient has a history of BPH and h as been taking tamsulosin daily. - Four days ago, the patient noticed a s ignificant decrease in urine output, with episodes of urinary leakage. - The urinary flow has slowed down signi ficantly, and the patient experiences urgency with minimal output. - The patient contacted his urologist's office but has not received a response. - The patient denies any fever, chills, or back pain. Physical Exam General: Cooperative, healthy appearing, comfortable, no acute distress and well developed Orientation: Patient oriented x3 Limitations: No limitations Head: Normal to inspection Ears: Hearing grossly normal bilaterally Nose: Normal External nose present Face and sinus: Normal facial exam Eyes: Appearance normal, both eyes and all related structures Neck: Normal visual inspection and Yes full ROM Respiratory: Normal respiratory effort and able to speak in complete sentences. Skin: No rashes or lesions noted Neuro: Patient oriented x3 Extremities: Normal to inspection Review of Systems - Genitourinary: Reports decreased urine output and urinary leakage. Denies dysuria. - Constitutional: Denies fever, chills. - Musculoskeletal: Denies back pain. All systems reviewed and are unremarkable except as noted in HPI [facility] Medical History Hx of cholecystitis Nicotine dependence, cigarettes, uncomplicated Diverticulosis Tubular adenoma of colon Urinary hesitancy due to benign prostatic hyperplasia Urinary incontinence, urge Nail discoloration Chronic low back pain with sciatica Hx of type B viral hepatitis Impaired fasting glucose Dyslipidemia Vitamin D deficiency Degenerative disc disease, lumbar Hx of hepatitis C Overweight Depression with anxiety Surgical History History of liver biopsy History of colonoscopy History of hand surgery History of lumbar discectomy History of laparoscopic cholecystectomy (~2023) History of umbilical hernia repair (~2023) S/P hernia surgery Family History Father No problems noted. Mother No problems noted. Brother No problems noted. Son No problems noted. Sister Substance use disorder Mental health disorder Sister No problems noted. Social History Household Members: Significant Other Housing: Apartment Alcohol intake: former Patient Tobacco Use Status: Current everyday Tobacco user Tobacco use type: Cigarette Cigarette Packs Per Day: 1 Cigarettes Per Day: 20.0 Years Smoked: 50 e-Cigarette/Vaping Use: Never Used Second Hand Smoke Exposure: Yes Advance Directives Date on File: 09/16/23 service: No Current occupational status: employed Cognitive needs: No Hearing needs: No Vision needs: Yes Physical Exam Vital Signs: Last Vital Signs Temp 98.9 F 12/15/24 14:42 Pulse 102 H 12/15/24 14:42 BP 110/62 12/15/24 14:42 Pulse Ox 98 12/15/24 14:42 Oxygen Delivery Method Room Air 12/15/24 14:42 BMI result Body Mass Index 24.8 Assessment & Plan Assessment & Plan (1) Acute urinary retention: Code(s): R33.8 - Other retention of urine Plan: Patient was informed and verbally consented to the use of an ambient scribe for clinic note documentation during this visit. Urinary retention due to Benign Prostatic Hyperplasia (Bph) - I called and spoke with Bairon, the nurse, advised they will fit him in now. The patient was advised to proceed to the urology clinic for a bladder scan and further management. Coding Level of Care Code Est Pt Level 3 (14021) Diagnoses Acute urinary retention R33.8
--- OUTSIDE RECORDS SUMMARY | 2024-12-15 18:07 | XMS_ITS | Encounter Summary ---
Author Organization [facility] Address [address] [place] [address] 7t [place] [address] Care Team Providers Care Operational Communication Chief Name Role Phone Unavailable Primary Care Provider Unavailabl e Encounter Details Date Type Department Care Team (Latest Contact Info) Description 08/30/2020 Abstract [facility] CONVERSIONS Dental, Provider, DDS Social History Tobacco [...]
--- OUTSIDE RECORDS SUMMARY | 2024-12-15 18:07 | XMS_ITS | Clinical Summary ---
Author Organization [facility] Address [address] [place] [address] 7t [place] [address] Care Team Providers Care Sound Effects Technician Name Role Phone Unavailable Primary Care Provider [...] Additional Information Patient not taking.Reported on 08/31/2024 Active Problems Problem Noted Date Diagnosed Date Dental infection 02/26/2022 Back problem 03/31/2013 Malignant neoplasm of liver (CMS/HCC) 03/31/2013 Encounters Date Type Department Care Team Description 11/08/2024 3:00 PM EDT Office Visit [facility] ADULT DENTAL [address] [place] [address] Marlon Eisenberg DDS 11/05/2024 3:30 PM EDT Office Visit [facility] ADULT DENTAL [address] [place] [address] Christian Sheehan DDS 09/20/2024 8:00 AM EDT Office Visit [facility] ADULT DENTAL [address] [place] [address] Reg Huitron, TIMBO Periodontal disease (Primary Dx) from Last 3 Months Social [...] Routine 09/20/2024 8:00 AM EDT Periodontal disease BITEWING - SINGLE RADIOGRAPHIC IMAGE Routine 05/24/2024 11:30 AM EDT Full PROPHYLAXIS - ADULT Routine 024 1:00 PM EDT PERIODIC ORAL EVALUATION - ESTABLISHED PATIENT Routine 07/02/2023 1:00 PM EDT INTRAORAL - COMPLETE SERIES OF RADIOGRAPHIC IMAGES Routine 05/03/2022 1:00 PM EST from Last 3 Months or Most Recently Relevant to Health Maintenance Insurance DENTAL - [employer] MED[employer]ARE [employer]ANTAGE , [address] [place] [address] , [address] [place] [address] , [address] [place] [address] , [address] [place] [address]
--- OUTSIDE RECORDS SUMMARY | 2024-12-15 18:07 | XMS_ITS | Encounter Summary ---
Author Organization [employer] [facility] Address [address] [facility] 7t [place] [address] Care Team Providers Care Automation Design Engineer Name Role Phone Unavailable Primary Care Provider Unavailabl e Encounter Details Date Type Department Care Team (Late st Contact Info) Description 09/11/2023 Telephone [facility] ADULT DENTAL [address] [place], [place] [phone] Chanda Barakat DDS Social History Tobacco Use [...]
== END 2024-12-15 15:20 | disposition home or self-care (01) ==
PROVIDERS: PCP Internal Medicine; Visit Provider Physician Assistant
DX: R33.8 Other retention of urine (principal)

== ENCOUNTER → 2024-12-15 14:22 | Outpatient (BNVA) | payer MEDICARE, SELFPAY | PROVIDERS: PCP Internal Medicine; Visit Provider Physician Assistant | DX: N40.1 Benign prostatic hyperplasia with lower urinary tract symptoms (principal); R39.15 Urgency of urination; R30.0 Dysuria; R33.8 Other retention of urine | CPT/HCPCS: 51798; 99212 ==

== ENCOUNTER 2024-12-22 16:10 | Outpatient (REF) | payer MEDICARE, MEDICAID, SELFPAY ==
--- OUTSIDE RECORDS SUMMARY | 2024-12-09 10:02 | XMS_ITS | Continuity of Care Document ---
Author Organization [facility] Address [address] [address] Phone Care Team Providers Care Color Maker Name Role Phone Yolanda Lieberman NP Unavailable Unavailable Advance Directives Directive Yes / No Effective Date File Name No Information Encounters Encounter Description Practice Location Reason(s) For Visit Diagnoses Date Provider [facility], [address], [id number], [place] tel:[phone] [address] [place] [address] No Information 2024 Luisana Guerrero. [address] [place], [address], [place]. tel:[phone] Family History Family Member Type Diagnosis Age [...]
[2024-12-22 18:52] LABS: Appearance Urine Clear; Glucose Urine UA Negative (Negative); PH 5.5 (5.0-9.0); Specific Gravity - Urine >= 1.030 (1.005-1.025); UMIC TRIGGER UA YES
== END 2024-12-22 16:11 | disposition home or self-care (01) ==
LOC: HO.LAB 16:10
PROVIDERS: PCP Internal Medicine; Visit Provider Urology
DX: N40.1 Benign prostatic hyperplasia with lower urinary tract symptoms (principal); R39.11 Hesitancy of micturition; N39.41 Urge incontinence; R33.8 Other retention of urine
CPT/HCPCS: 81001; 87086

== ENCOUNTER 2024-12-23 15:02 | Outpatient (REF) | payer MEDICARE, MEDICAID, SELFPAY ==
--- OUTSIDE RECORDS SUMMARY | 2024-12-09 10:02 | XMS_ITS | Continuity of Care Document ---
Author Organization [facility] Address [address] [address] Phone Care Team Providers Care Web Development Manager Name Role Phone Yolanda Lieberman NP Unavailable Unavailable Advance Directives Directive Yes / No Effective Date File Name No Information Encounters Encounter Description Practice Location Reason(s) For Visit Diagnoses Date Provider [facility], [address], [id number], [place] tel:[phone] [address] [place] [address] No Information 2024 Luisana Guerrero. [address] [place], [address], [place]. tel:[phone] Family History Family Member Type Diagnosis Age At Onset No Information Payers Payer name Insurance type Covered green party ID Authoriza tion(s) No Information Social History Type Description Quantity Date Captured Comments Sex Male Smoking Status No Information Chief Complaint And Reason For Visit No Information History Of Present Illness Encounter Date Complaint History Of Prese nt Illness No Information Instructions Date Instruction Additional Infor mation No Information Assessments Type Assessment Date No Information
--- NOTE | ~2024-12-23 | US_ITS ---
EXAMINATION: US RETROPERITONEAL COMPLETE (RENAL) CLINICAL INFORMATION: R33.8. Other retention obscuring.. COMPARISON: Ultrasound bladder dated February 24, 2024. Limited ultrasound abdomen dated September 16, 2023. TECHNIQUE: Real-time imaging of the kidneys and bladder. FINDINGS: RIGHT KIDNEY: 11 x 5 x 6 cm (SAG x AP x TRV). Normal echotexture. Renal cortical thickness is normal. No hydronephrosis. There is a well-defined 1.4 cm exophytic anechoic lesion in the midportion and lateral aspect without nodular components were flow on color Doppler interrogation. LEFT KIDNEY: 11 x 5 x 5 cm (SAG x AP x TRV). Normal echotexture. Renal cortical thickness is normal. No hydronephrosis. No solid or cystic lesion. BLADDER: Fluid-filled. Trabeculated wall.. Bilateral ureteral jets are demonstrated. Prevoid bladder volume is 394 mL. Postvoid bladder volume is 264 mL. Prostate gland measures 4 x 4 x 5 cm and volume: 39 cc. US/US retroperitoneal comp IMPRESSION: 264 cc of residual urine in a post void image. Trabeculated wall. Prostate gland volume: 39 cc. 1.4 cm simple cyst, right kidney. No hydronephrosis .. Electronically signed by: Porfirio Ortiz MD 12/23/2024 03:43 PM EDT
--- OUTSIDE RECORDS SUMMARY | 2024-12-23 18:55 | XMS_ITS | Clinical Summary ---
Author Organization [employer] [facility] Address [address] [place] [address] 7t [place] [address] Care Team Providers Care Tin Can Feeder Name Role Phone Unavailable Primary Care Provider [...] Description 11/08/2024 3:00 PM EDT Office Visit [facility] ADULT DENTAL [address] [place] [address] Marlon Eisenberg DDS 11/05/2024 3:30 PM EDT Office Visit [facility] ADULT DENTAL [address] [place] [address] Christian Sheehan DDS from Last 3 Months Social History [...] PROBLEM FOCUSED Routine 11/05/2024 3:30 PM EDT BITEWING - SINGLE RADIOGRAPHIC IMAGE Routine 05/24/2024 11:30 AM EDT Full PROPHYLAXIS - ADULT Routine 024 1:00 PM EDT PERIODIC ORAL EVALUATION - ESTABLISHED PATIENT Routine 07/02/2023 1:00 PM EDT INTRAORAL - COMPLETE SERIES OF RADIOGRAPHIC IMAGES Routine 05/03/2022 1:00 PM EST from Last 3 Months or Most Recently Relevant to Health Maintenance Insurance DENTAL - [employer]ARE [employer]AGE , [address] [place] [id number]
--- OUTSIDE RECORDS SUMMARY | 2024-12-23 18:55 | XMS_ITS | Encounter Summary ---
Author Organization [employer] [facility] Address [address] [facility] 7t [place] [address] Care Team Providers Care Bottle Caser Name Role Phone Unavailable Primary Care Provider Unavailabl e Encounter Details Date Type Department Care Team (Late st Contact Info) Description 09/11/2023 Telephone [facility] ADULT DENTAL [address] [place], [place] [phone] Chanda Barakat DDS Social History Tobacco Use [...]
--- OUTSIDE RECORDS SUMMARY | 2024-12-23 18:55 | XMS_ITS | Encounter Summary ---
Author Organization [employer] [facility] Address [address] [place] [address] 7t [place] [address] Care Team Providers Care Hat Forming Machine Feeder Name Role Phone Unavailable Primary Care Provider Unavailabl e Encounter Details Date Type Department Care Team (Latest Contact Info) Description 08/30/2020 Abstract [facility] CONVERSIONS Dental, Provider, DDS Social History [...]
== END 2024-12-23 15:03 | disposition home or self-care (01) ==
LOC: HO.US 15:02
PROVIDERS: PCP Internal Medicine; Visit Provider Urology
DX: R33.8 Other retention of urine (principal)
CPT/HCPCS: 76770

== ENCOUNTER → 2024-12-23 15:04 | Outpatient (BNV) | payer MEDICARE, MEDICAID, SELFPAY | PROVIDERS: PCP Internal Medicine; Visit Provider Radiology Diagnostic Radiology | DX: R33.8 Other retention of urine (principal); N28.1 Cyst of kidney, acquired | CPT/HCPCS: 76770 ==

== ENCOUNTER → 2024-12-30 13:55 | Outpatient (BNVA) | payer MEDICARE, SELFPAY | PROVIDERS: PCP Internal Medicine; Visit Provider Urology | DX: N40.1 Benign prostatic hyperplasia with lower urinary tract symptoms (principal); N13.8 Other obstructive and reflux uropathy; N39.41 Urge incontinence; R33.8 Other retention of urine; R39.11 Hesitancy of micturition | CPT/HCPCS: 51798 ==

== ENCOUNTER 2025-01-21 14:39 | Outpatient (AMB) | payer MEDICARE, SELFPAY ==
--- NOTE | 2025-01-21 14:48 | A.OFFVIS_ITS ---
Intake Visit Reasons: Cysto Intake Note: Patient Is Present for Cystoscopy Urology Med: Terazosin Antibiotic Allergy: None Blood Thinner: None Last PVR: 254ML URO G-HD Cystoscope LOT [id number] EXP08/10/2027 Wrapper Leaf Inspector Required: No Accompanied by: Self / Same As Patient Allergies No Known Allergies Allergy (Verified 12/15/24 14:44) HPI Comments Details: Emanuel is a pleasant male. He is a patient of Dr. Gregg. He is seen for the following urologic conditions - lower urinary tract symptoms Episode of urinary retention in December Retroperitoneal ultrasound 264 cc of residual urine in a post void image. Trabeculated wall. Prostate gland volume: 39 cc Has been doing CIC since December Cystoscopy with trabeculated wall Recommend plasma button incision Lower urinary tract symptoms Progressive Incomplete bladder emptying Developing weakness of stream Current therapy tamsulosin PFSH Medical History Hx of cholecystitis Nicotine dependence, cigarettes, uncomplicated Diverticulosis Tubular adenoma of colon Urinary hesitancy due to benign prostatic hyperplasia Urinary incontinence, urge Nail discoloration Chronic low back pain with sciatica Hx of type B viral hepatitis Impaired fasting glucose Dyslipidemia Vitamin D deficiency Degenerative disc disease, lumbar Hx of hepatitis C Overweight Depression with anxiety Surgical History History of liver biopsy History of colonoscopy History of hand surgery History of lumbar discectomy History of laparoscopic cholecystectomy (~2023) History of umbilical hernia repair (~2023) S/P hernia surgery Family History Father No problems noted. Mother No problems noted. Brother No problems noted. Son No problems noted. Sister Substance use disorder Mental health disorder Sister No problems noted. Social History Household Members: Significant Other Housing: Apartment Alcohol intake: former Patient Tobacco Use Status: Current everyday Tobacco user Tobacco use type: Cigarette Cigarette Packs Per Day: 1 Cigarettes Per Day: 20.0 Years Smoked: 50 e-Cigarette/Vaping Use: Never Used Second Hand Smoke Exposure: Yes Advance Directives Date on File: 09/16/23 service: No Current occupational status: employed Cognitive needs: No Hearing needs: No Vision needs: Yes Office Procedures Cystoscopy Consent Discussed risk and benefit or proposed procedure with the patient. Information consent for procedure given to the patient. Discussed technical aspects, risks, benefits and alternatives in full. Addressed all of the patient's questions and concerns regarding the procedure. The patient demonstrated knowledge and understanding. They wish to proceed with this procedure. Preparation The patient was prepped in the usual manner. A care worker was present and in the room. Genitalia was prepped with betadine solution in a sterile manner. Lidocaine Jelly 2% was placed into the urethra and 16Fr flexible Olympus cystoscope was inserted into the meatus after adequate lubrication. [id number] DISPOSABLE SCOPE URO-G FLEXIBLE SCOPE Procedure code (CPT) selection complete Office Meds lidocaine HCl 2 % mucosal jelly in applicator Performing Provider: Yash Rich MD Performing Location: [facility] Administered by: Bairon Liu LPN on 01/21/25 14:56 Dose Route Admin Location Dispensed Lot Number Expiration Date [facility] Maintenance Machine Repairer 10 mL intra-urethral 10 mL nitrofurantoin monohydrate/macrocrystals 100 mg capsule Performing Provider: Yash Rich MD Performing Location: [facility] Administered by: Bairon Liu LPN on 01/21/25 14:56 Dose Route Admin Location Dispensed Lot Number Expiration Date [place] Maintenance Machine Repairer 100 mg PO 1 cap Results AMB Urinalysis, Automated UA Leukoctes 15 Brittni/uL Last Edit by HUANG Kearney on 01/21/25 14:59 UA Nitrite Negative Last Edit by HUANG Kearney on 01/21/25 14:59 UA Urobilinogen 0.2 mg/dL Last Edit by Lani Ogden [facility] on 01/21/25 14:5 9 UA Protein 0 mg/dL Last Edit by HUANG Kearney on 01/21/25 14:59 UA pH 6.0 Last Edit by HUANG Kearney on 01/21/25 14:59 UA Blood 0 Bob/uL Last Edit by ERA Kearney on 01/21/25 14:59 UA Specific [place] 1.005 Last Edit by HUANG Kearney on 01/21/25 14: 59 UA Ketone Negative Last Edit by HUANG Kearney on 01/21/25 14:59 UA Bilirubin 0 mg/dL Last Edit by ERA KearneyA on 01/21/25 14:59 UA Glucose 0 mg/dL Last Edit by ERA KearneyA on 01/21/25 14:59 Results Reviewed Results Reviewed: Laboratory Last Values Urine pH (Auto) 6.0 01/21/25 14:48 Specific [place] (Auto) 1.005 01/21/25 14:48 Urine Protein (Auto) 0 mg/dL 01/21/25 14:48 Glucose (UA)(Auto) 0 mg/dL 01/21/25 14:48 Urine Ketones (Auto) Negative 01/21/25 14:48 Urine Blood (Auto) 0 Bob/uL 01/21/25 14:48 Urine Nitrite (Auto) Negative 01/21/25 14:48 Urine Bilirubin (Auto) 0 mg/dL 01/21/25 14:48 Urine Urobilinogen (Auto) 0.2 mg/dL 01/21/25 14:48 Leukocyte Esterase (Auto) 15 Brittni/uL 01/21/25 14:48 Assessment & Plan Assessment & Plan (1) Urinary hesitancy due to benign prostatic hyperplasia: Code(s): N40.1 - Benign prostatic hyperplasia with lower urinary tract symptoms; R39.11 - Hesitancy of micturition Category: Medical (2) Acute urinary retention: Code(s): R33.8 - Other retention of urine Category: Medical Plan We discussed the nature of the decision and reasonable options for performing a prostate intervention. Interventions include TURP, GreenLight laser enucleation of the prostate, GreenLight laser ablation of the prostate, transurethral incision of the prostate, and I-Tend prostate procedure. Options such as medical therapy were discussed. The relative uncertainties and benefits related to each alternate procedure were adequately discussed. General surgical risks including, but not limited to, pain, bleeding, infection, myocardial infarction, pulmonary embolus, deep vein thrombosis and cerebrovascular accident which may result in further hospitalization were discussed. Full disclosure of the procedure as well as all major risks, benefits and complications were discussed including but not limited to damage to the urethra or bladder neck, recurrent BPH, retrograde ejaculation, bladder infection, urge, de cony frequency, incomplete emptying, dysuria, remote chance of erectile dysfunction, epididymitis, and meatal stenosis. The success rate of the procedure was discussed. Success of the procedure in the short-term does not necessarily guarantee that long-term success will be maintained. Suitable follow up will need to be maintained. The patient showed understanding of discussion. An opportunity was provided for questions to be answered and wishes to proceed with the following procedure. - plasma button prostate Orders: Orders AMB Cystoscopy Today N39.41 - Urge incontinence, N40.1 - Benign prostatic hyperplasia with lower urinary tract symptoms, R33.8 - Other retention of urine, R39.11 - Hesitancy of micturition AMB Urinalysis Automated Today Z13.9 - Encounter for screening, unspecified Medications: New finasteride 5 mg PO DAILY 90 tabs 1RF 90 days Changed From terazosin 10 mg (2 x 5 mg) PO BEDTIME 60 caps 1RF To terazosin 10 mg PO BEDTIME 90 caps 1RF 90 days Patient Instructions: This note is constructed using voice recognition software. While every effort has been made to ensure accuracy research food technologist errors may have been included. Imaging studies, laboratory and physical exam results were discussed and reviewed in detail. No major barriers to patient understanding were identified. An opportunity to ask questions regarding the treatment plan was provided. All questions were answered. The patient expressed understanding and agreement with the above treatment plan. The patient is aware they should contact our office by phone for worsening of their current condition or the appearance of new urologic symptoms. Compliance is encouraged with any medications and followup testing that is ordered. It is a privilege to participate in the urologic care of your patient. If you have any questions or concerns regarding treatment for the above conditions, or other urologic issues, please do not hesitate to contact me. The office telephone contact is [phone]. Sincerely, Dr Yash Rich MD, [facility] - Urology Compassionate Specialist Care for the Genitourinary System Coding Level of Care Code Est Pt Level 4 (72057) Diagnoses Urinary hesitancy due to benign prostatic hyperplasia N40.1; R39.11 Acute urinary retention R33.8 CPT Codes Cystoscopy - CPT: [id number] ([id number])
--- OUTSIDE RECORDS SUMMARY | 2025-01-21 14:57 | XMS_ITS | Encounter Summary ---
Author Organization [employer] [facility] Address [address] [place] [address] 7t [place] [address] Care Team Providers Care Catalogue Librarian Name Role Phone Unavailable Primary Care Provider Unavailabl e Encounter Details Date Type Department Care Team (Latest Contact Info) Description 08/30/2020 Abstract [facility] CONVERSIONS Dental, Provider, DDS Social History Tobacco [...]
--- OUTSIDE RECORDS SUMMARY | 2025-01-21 14:57 | XMS_ITS | Encounter Summary ---
Author Organization [facility] Address [address] [facility] 7t [place] [address] Care Team Providers Care Frame Carver Spindle Name Role Phone Unavailable Primary Care Provider Unavailabl e Encounter Details Date Type Department Care Team (Late st Contact Info) Description 09/11/2023 Telephone [facility] ADULT DENTAL [address] [place], [place] [phone] Chanda Barakat DDS Social History Tobacco Use [...]
--- OUTSIDE RECORDS SUMMARY | 2025-01-21 14:57 | XMS_ITS | Clinical Summary ---
Author Organization [facility] Address [address] [place] [address] 7t [place] [address] Care Team Providers Care Rn Admit Name Role Phone Unavailable Primary Care Provider [...] Description 11/08/2024 3:00 PM EDT Office Visit [facility] ADULT DENTAL [address] [place] [address] Marlon Eisenberg DDS 11/05/2024 3:30 PM EDT Office Visit [facility] ADULT DENTAL [address] [place] [address] Christian Sheehan DDS from Last 3 Months [...] MEDICARE ADVANTAGE , [address] [place] [phone]
== END 2025-01-21 15:17 | disposition home or self-care (01) ==
LOC: HO.HUSH 14:40
PROVIDERS: PCP Internal Medicine; Visit Provider Urology
DX: N39.41 Urge incontinence (principal); N40.1 Benign prostatic hyperplasia with lower urinary tract symptoms; R39.11 Hesitancy of micturition; R33.8 Other retention of urine; Z13.9 Encounter for screening, unspecified
CPT/HCPCS: 52000; 99214

== ENCOUNTER → 2025-01-21 14:39 | Outpatient (BNVA) | payer MEDICARE, SELFPAY | PROVIDERS: PCP Internal Medicine; Visit Provider Urology | DX: N40.1 Benign prostatic hyperplasia with lower urinary tract symptoms (principal); R39.11 Hesitancy of micturition; R33.8 Other retention of urine; Z13.9 Encounter for screening, unspecified | CPT/HCPCS: 52000; 81003; 99212 ==

== ENCOUNTER 2025-02-02 15:43 | Outpatient (AMB) | payer MEDICARE, SELFPAY ==
--- OUTSIDE RECORDS SUMMARY | 2024-12-09 09:02 | XMS_ITS | Continuity of Care Document ---
Author Organization [facility] Address [address] [address] Phone Care Team Providers Care Emergency Room Physician Name Role Phone Yolanda Lieberman NP Unavailable Unavailable Advance Directives Directive Yes / No Effective Date File Name No Information Encounters Encounter Description Practice Location Reason(s) For Visit Diagnoses Date Provider [facility], [address], [id number], [place] tel:[phone] [address] [place] [address] No Information 2024 Luisana Guerrero. [address] [place], [address], [place]. tel:[phone] Family History Family Member Type Diagnosis Age [...]
--- OUTSIDE RECORDS SUMMARY | 2025-01-31 14:43 | XMS_ITS | Encounter Summary ---
Author Organization [facility] Address [address] [place] [address] Care Team Providers Care Storeroom Supervisor Name Role Phone Maryellen Gregg MD Primary Care Provider [phone] Encounter Details Date Type Department Care Team (Latest Contact Info) Description 01/31/2025 2:43 PM EST - 01/31/2025 11:59 PM EST Hospital Encounter [facility] Xray [address] [place] [address] Pain in right hip Discharge Disposition: Home or Self Care Social History Tobacco Use Types Packs/Day Years Used Date Smoking Tobacco: Never Assessed Sex and Gender Information Value Date Recorded Sex Assigned at Not on file Legal Sex Male 10:37 AM EST Gender Identity Not on file Sexual Orientation Not on file documented as of this encounter Discharge Disposition Disposition Code Departure Means Destination Home or Self Care documented in this encounter Plan of Treatment Not on file documented as of this encounter Procedures Procedure Name Priority Date/Time Associated Diagnosis Comments XR HIP 2-3 VIEWS RIGHT Routine 01/31/2025 3:05 PM EST Pain in right hip documented in this encounter Results * XR Hip 2-3 Views Right (01/31/2025 3:05 PM EST) Anatomical Region Laterality Modality Lower Extremities, Hip Right Radiograp hic Imaging 02/01/2025 8:01 AM EST Impressions 02/01/2025 8:04 AM EST There is asymmetric narrowing of the superolateral right femoral acetabular joint with associated degenerative change. The femoral head is asymmetrically mildly uncovered. There is a slight bump at the head neck junction. Femoral acetabular impingement could be present. -------- FINAL REPORT -------- Dictated By: Jordin Bo Dictated Date: 02/01/2025 08:01 ET Assigned Physician: Jordin Bo Reviewed and Electronically Signed By: Jordin Bo Signed Date: 02/01/2025 08:04 ET Workstation ID: [id number] Transcribed By: Self Edit Transcribed Date: 02/01/2025 08:01 ET Narrative 02/01/2025 8:04 AM EST EXAMINATION: PELVIS RIGHT HIP CLINICAL INFORMATION: Pain COMPARISON: None. TECHNIQUE: Frontal view of the pelvis 2 views right hip FINDINGS: Pelvis: The SI joints hips and symphysis appear intact. No pelvic fracture or suspicious focal lesion. No suspicious pelvic mass or collection. There are some vascular calcifications. There is degenerative change in the lower spine with probable scoliosis. There is disc and facet disease. The left hip appears intact and the joint space appears preserved. The femoral head appears appropriately covered. Right hip: No acute fracture. The right femoral head appears moderately uncovered. The acetabulum appears appropriately performed. There is marked narrowing of the superolateral femoral acetabular joint with subchondral sclerosis and there are some proliferative osteophytes. There is some spurring at the articular margin of the lateral aspect of the femoral head. There is no definite collapse. Procedure Note Jordin Bo MD - 02/01/2025 EXAMINATION: PELVIS RIGHT HIP CLINICAL INFORMATION: Pain COMPARISON: None. TECHNIQUE: Frontal view of the pelvis 2 views right hip FINDINGS: Pelvis: The SI joints hips and symphysis appear intact. No pelvic fracture orsuspicious focal lesion. No suspicious pelvic mass or collection. Thereare some vascular calcifications. There is degenerative change in the lower spine with probable scoliosis.There is disc and facet disease. The left hip appears intact and the joint space appears preserved. Thefemoral head appears appropriately covered. Right hip: No acute fracture. The right femoral head appears moderately uncovered.The acetabulum appears appropriately performed. There is marked narrowingof the superolateral femoral acetabular joint with subchondral sclerosisand there are some proliferative osteophytes. There is some spurring atthe articular margin of the lateral aspect of the femoral head. There isno definite collapse. IMPRESSION: There is asymmetric narrowing of the superolateral right femoralacetabular joint with associated degenerative change. The femoral head isasymmetrically mildly uncovered. There is a slight bump at the head neckjunction. Femoral acetabular impingement could be present. -------- FINAL REPORT -------- Dictated By: Jordin Bo Dictated Date: 02/01/2025 08:01 ET Assigned Physician: Jordin Bo Reviewed and Electronically Signed By: Jordin Bo Signed Date: 02/01/2025 08:04 ET Workstation ID: [id number] Transcribed By: Self Edit Transcribed Date: 02/01/2025 08:01 ET Daniel BOYKIN IMG XR PROCEDURES Final R esult documented in this encounter Visit Diagnoses Diagnosis Pain in right hip documented in this encounter Care Teams Storeroom Supervisor Relationship Specialty Start Date End Date Maryellen Gregg MD [address] [place] [address] PCP - General Internal Medicine 04/23/19 documented as of this encounter
--- NOTE | 2025-02-02 15:52 | MHC.PC.OV ---
Vital Signs 02/02/25 15:53 Height 6 ft 1 in Weight 189 lb BMI 24.9 BP 110/62 Blood Pressure Location Rt brachial Position Sitting Respiration 16 Pulse 79 Pulse Source Pulse Oximeter Temp 97.9 F Temp Source Oral Pulse Oximetry (%) 94 Oxygen Delivery Method Room Air Intake Visit Reasons: Hip and knee pain Intake Note: Pt is here today c/o Rt hip and Rt hip pain no injury noted x3mo. Allergies No Known Allergies Allergy (Verified 02/02/25 16:10) Medication List - Last Reconciled 02/02/25 by Maryellen Gregg MD finasteride 5 mg PO DAILY 90 days gabapentin 600 mg PO BID Lactobacillus rhamnosus GG (Culturelle) 1 cap PO DAILY rosuvastatin 5 mg PO BEDTIME terazosin 10 mg PO BEDTIME 90 days tramadol 50 mg PO TID PRN venlafaxine ER 150 mg PO DAILY Tobacco use date assessed: 02/02/25 Fall risk assessment: No Falls in past year Last assessed Fall Risk: 02/02/25 Dental Screening Dental Screen Date: 02/02/25 Did you have a dental visit in the last 12 months?: Yes Did you have a dental problem in the last 6 months where you did not have access to dental care?: No Was dental information given to patient?: Patient has dentist HPI Hip and knee pain HPI Details The patient is a 69 year old individual presenting for evaluation of right hip and leg pain. The patient reports swelling and pain in the right hip, knee, and the entire leg. The pain originates in the hip area and radiates down the leg, and is exacerbated by standing on the right foot or moving backwards. The patient describes a sensation of something being pinched. The patient recently received injections for back pain, which were effective for the back but did not help the leg pain. The patient has tried Tylenol and ibuprofen without relief. The patient is also taking gabapentin and tramadol, which are not helping the pain. An X-ray of the hip was performed two days ago at [facility], but the patient had not yet received the results. Functionally, the patient finds it hard to go up and down stairs and feels as if the leg is falling off after walking for a couple of hours. Reviewed x-ray of right hip from [facility] done 02/01/2025 showing asymmetric narrowing of the superolateral right femoral acetabular joint with associated degenerative change. The femoral head is symmetrically mildly uncovered and there is a slight bump at the head neck junction, with femoral acetabular impingement possibly present. [facility] Medical History (Updated 02/07/25 @ 01:20 by Maryellen Gregg MD) Degenerative joint disease of right hip Hx of cholecystitis Nicotine dependence, cigarettes, uncomplicated Diverticulosis Tubular adenoma of colon Urinary hesitancy due to benign prostatic hyperplasia Urinary incontinence, urge Nail discoloration Chronic low back pain with sciatica Hx of type B viral hepatitis Impaired fasting glucose Dyslipidemia Vitamin D deficiency Degenerative disc disease, lumbar Hx of hepatitis C Overweight Depression with anxiety Surgical History History of liver biopsy History of colonoscopy History of hand surgery History of lumbar discectomy History of laparoscopic cholecystectomy (~2023) History of umbilical hernia repair (~2023) S/P hernia surgery Family History Father No problems noted. Mother No problems noted. Brother No problems noted. Son No problems noted. Sister Substance use disorder Mental health disorder Sister No problems noted. Social History Household Members: Significant Other Housing: Apartment Alcohol intake: former Patient Tobacco Use Status: Current everyday Tobacco user Tobacco use type: Cigarette Cigarette Packs Per Day: 1 Cigarettes Per Day: 20.0 Years Smoked: 50 e-Cigarette/Vaping Use: Never Used Second Hand Smoke Exposure: Yes Advance Directives Date on File: 09/16/23 service: No Current occupational status: employed Cognitive needs: No Hearing needs: No Vision needs: Yes Questionnaire PHQ-9 Over the last 2 weeks, how often have you been bothered by any of the following problems? 1. Little interest or pleasure in doing things: not at all 2. Feeling down, depressed, or hopeless: not at all 3. Trouble falling or staying asleep, or sleeping too much: not at all 4. Feeling tired or having little energy: not at all 5. Poor appetite or overeating: not at all 6. Feeling bad about yourself - or that you are a failure or have let yourself or your family down: not at all 7. Trouble concentrating on things, such as reading the newspaper or watching television: not at all 8. Moving or speaking so slowly that other people could have noticed. Or the opposite - being so fidgety or restless that you have been moving around a lot more than usual: not at all 9. Thoughts that you would be better off or of hurting yourself in some way: not at all Total score: 0 Source: Developed by Drs. Emanuel Mcmahon, Mirna Floyd, Florin Cervantes and colleagues, with an educational l[place] from [employer]. Thrive Questionnaire Date Thrive assessed: 11/04/24 I am a: Patient What is your living situation today?: I choose not to answer this question Within the past 12 months, did the food you bought not last and you didn't have the money to get more?: I choose not to answer this question Within the past 12 months, did you worry whether your food would run out before you got money to buy more?: I choose not to answer this question Do you have trouble paying for medicines?: I choose not to answer this question Do you have trouble getting transportation to medical appointments?: No Do you have trouble paying your heating and electricity bill?: I choose not to answer this question Do you have trouble taking care of your child, family member or friend?: I choose not to answer this question Do you have trouble with day-to-day activities such as bathing, preparing meals, shopping, managing finances, etc.?: I choose not to answer this question Are you currently unemployed and looking for a job?: I choose not to answer this question Are you interested in more education?: I choose not to answer this question Please select the resources that you would like help with: None Currently or been in a relationship where the following occur: No concerns reported THRIVE Score: 0 DAVID-7 AMB Questionnaire DAVID-7 Date DAVID - 7 assessed: 11/11/24 Feeling nervous, anxious, or on edge: 2 = More than half the days Not being able to stop or control worryin = Several days Worrying too much about different things: 2 = More than half the days Trouble relaxin = Nearly every day Being so restless that it is hard to sit still: 0 = Not at all Becoming easily annoyed or irritable: 0 = Not at all Feeling afraid as if something awful might happen: 0 = Not at all Total DAVID-7 score (0-4 normal; 5-9 mild; 10-14 moderate; 15-21 severe): 8 Source: Developed by Drs. Emanuel Mcmahon, Mirna Floyd, Florin Cervantes and colleagues, with an educational london from [employer]. Physical exam (Primary Care) Vital Signs: Last Vital Signs Temp 97.9 F 02/02/25 15:53 Pulse 79 02/02/25 15:53 Resp 16 02/02/25 15:53 BP 110/62 02/02/25 15:53 Pulse Ox 94 02/02/25 15:53 Oxygen Delivery Method Room Air 02/02/25 15:53 BMI result Body Mass Index 24.9 Tobacco/Smoking Status: Tobacco use Status Tobacco use date assessed 02/02/25 02/02/25 15:59 Patient Tobacco Use Status Current everyday Tobacco 02/02/25 15:59 Tobacco use type Cigarette 02/02/25 15:59 e-Cigarette/Vaping Use Never Used 02/02/25 15:59 PHQ-9: PHQ-9 Score PHQ-9: Total score 0 02/02/25 16:23 Thrive Assessment: Date of Thrive Assessment Date Thrive assessed 11/04/24 02/02/25 15:59 Currently or been in a relationship where the following occur: No concerns reported Const General: comfortable and no acute distress Orientation/consciousness: patient oriented x3 General: Yes no CVA tenderness Back/Spine/Pelvis Back: no CVA tenderness and No back tenderness Skin General skin exam: no rashes or lesions noted Neuro General: patient oriented x3 Gait exam (Neuro): Antalgic gait present (Favoring right leg) Extrem Other: Tenderness on palpation over right inguinal area and on flexion extension of right hip joint Results Reviewed Results Reviewed: X-ray hip 2-3 views on right done at [facility] on 01/31/2025 showed asymmetric narrowing of the superolateral right femoral acetabular joint with associated degenerative change. In the femoral head is currently on covered. There is a slight bump at the head neck junction. Femoral acetabular impingement could be present Coding Level of Care Code Est Pt Level 4 (54972) Diagnoses Primary osteoarthritis of right hip M16.11 Osteoarthritis type: primary Assessment & Plan Assessment & Plan (1) Degenerative joint disease of right hip: Code(s): M16.11 - Unilateral primary osteoarthritis, right hip Category: Medical Qualifiers: Osteoarthritis type: primary Qualified Code(s): M16.11 - Unilateral primary osteoarthritis, right hip Plan: The patient's right-sided hip and radicular leg pain are attributed to severe osteoarthritis of the right hip, confirmed by X-ray findings of marked joint space narrowing, spurring, and cartilage degradation. The condition is distinct from the patient's spine issues. Current pharmacotherapy including Tylenol, ibuprofen, gabapentin, and tramadol is providing inadequate pain relief. The patient will follow up with the providers at [facility] to discuss the imaging results. A referral to an orthopedic assistant was discussed and offered for further management, which the patient deferred pending contact with the current specialists. Recommended trying a heating pad for symptomatic relief. Patient was informed and verbally consented to the use of an ambient scribe for clinic note documentation during this visit.
[2025-02-02 15:53] VITALS: BP 110/62; PULSE 79; RESP 16; TEMP 36.6; O2SAT 94; BMI 24.9
--- OUTSIDE RECORDS SUMMARY | 2025-02-02 18:37 | XMS_ITS | Clinical Summary ---
Author Organization [employer] [facility] Address [address] [place] [address] [address] [place] [address] Care Team Providers Care Train Gate Attendant Name Role Phone Unavailable Primary Care [...] Description 11/08/2024 3:00 PM EDT Office Visit [facility] ADULT DENTAL [address] [place] [address] Marlon Eisenberg DDS 11/05/2024 3:30 PM EDT Office Visit [facility] ADULT DENTAL [address] [place] [address] Christian Sheehan DDS from Last 3 Months [...] MEDICARE ADVANTAGE , [address] [place] [id number]
--- OUTSIDE RECORDS SUMMARY | 2025-02-02 18:37 | XMS_ITS | Encounter Summary ---
Author Organization [employer] [facility] Address [address] [place] [address] [address] [place] [address] Care Team Providers Care Doggy Daycare Activities Director Name Role Phone Unavailable Primary Care Provider Unavailabl e Encounter Details Date Type Department Care Team (Latest Contact Info) Description 08/30/2020 Abstract [facility] CONVERSIONS Dental, Provider, DDS Social [...]
--- OUTSIDE RECORDS SUMMARY | 2025-02-02 18:37 | XMS_ITS | Encounter Summary ---
Author Organization [employer] [facility] Address [address] [address] [facility] [address] [place] [address] Care Team Providers Care Digital Marketing Apprentice Name Role Phone Unavailable Primary Care Provider Unavailabl e Encounter Details Date Type Department Care Team (Late st Contact Info) Description 09/11/2023 Telephone [facility] ADULT DENTAL [address] [place], [place] [phone] Chanda Barakat DDS Social History Tobacco Use [...]
--- OUTSIDE RECORDS SUMMARY | 2025-02-02 18:37 | XMS_ITS | Clinical Summary ---
Author Organization [facility] Address [address] [place] [address] Phone Care Team Providers Care Hedge Fund Principal Name Role Phone Maryellen Gregg MD Primary Care Provider Encounters Date Type Department Care Team Description 01/31/2025 2:43 PM EST - 01/31/2025 11:59 PM EST Hospital Encounter [facility] Xray [address] [place] [address] Pain in right hip Discharge Disposition: Home or Self Care from Last 3 Months Social History Tobacco Use Types Packs/Day Years Used Date Smoking Tobacco: Never Assessed Sex and Gender Information Value Date Recorded Sex Assigned at Not on file Legal Sex Male 10:37 AM EST Gender Identity Not on file Sexual Orientation Not on file Plan of Treatment Health Maintenance Due Date Last Done Comments Colorectal Cancer Screening: Colonoscopy 1955 Hepatitis A Vaccines (1 of 2 - Risk 2-dose series) 05/30/1975 Hepatitis B Vaccines (1 of 3 - Risk 3-dose series) 2016 Depression Screening 03/03/2024 Zoster Vaccines (2 of 2) 05/06/2024 03/11/2024 COVID-19 Vaccine ( season) 2024 12/08/2022, 02/21/2021, 06/10/2020, Additional history exists Abdominal Aortic Aneurysm (AAA) Screen 01/31/2025 Cholesterol Screening (Lipid Panel) 01/31/2025 Falls Risk Assessment 01/31/2025 Hepatitis C Screening 01/31/2025 Lung Cancer Screening (Low Dose CT) 01/31/2025 Medicare Annual Wellness Visit 01/31/2025 Social Influencers of Health Screening 01/31/2025 DTaP,Tdap,and Td Vaccines (3 - Td or Tdap) 12/16/2028 12/16/2018, 10/17/2017 Pneumococcal Vaccine: 50+ Years Completed 12/08/2022, 10/29/2021 RSV Immunization Adult Patients Completed 02/07/2023 Influenza Vaccine Completed 01/01/2025, , 12/08/2022, Additional history exists HIB Vaccines Aged Out No longer eligi ble based on patient's age to complete this topic HPV Vaccines Aged Out No longer eligi ble based on patient's age to complete this topic IPV Vaccines Aged Out No longer eligi ble based on patient's age to complete this topic MMR Vaccines Aged Out No longer eligi ble based on patient's age to complete this topic Meningococcal ACWY Vaccine Aged Out N o longer eligible based on patient's age to complete this topic Meningococcal B Vaccine Aged Out No l onger eligible based on patient's age to complete this topic RSV Immunization Patients Under 20 months Aged Out No longer eligible based on patient's age to complete this topic Varicella Vaccines Aged Out No longer eligible based on patient's age to complete this topic Procedures Procedure Name Priority Date/Time Associated Diagnosis Comments XR HIP 2-3 VIEWS RIGHT Routine 01/31/2025 3:05 PM EST Pain in right hip from Last 3 Months Results * XR Hip 2-3 Views Right [...] Signed Date: 02/01/2025 08:04 ET Workstation ID: [id number] Transcribed By: Self Edit Transcribed Date: 02/01/2025 [...] Signed Date: 02/01/2025 08:04 ET Workstation ID: [id number] Transcribed By: Self Edit Transcribed Date: 02/01/2025 08:01 ET Daniel BOYKIN IMG XR PROCEDURES Final R esult from Last 3 Months Insurance [place] Care Teams Hedge Fund Principal Relationship Specialty Start Date End Date Mayrellen Gregg MD [address] [place] [address] PCP - General Internal Medicine 04/23/19
== END 2025-02-02 16:27 | disposition home or self-care (01) ==
LOC: HO.HMCC 15:44
PROVIDERS: PCP Internal Medicine; Visit Provider Internal Medicine
DX: M16.11 Unilateral primary osteoarthritis, right hip (principal)

== ENCOUNTER → 2025-02-02 15:43 | Outpatient (BNVA) | payer MEDICARE, SELFPAY | PROVIDERS: PCP Internal Medicine; Visit Provider Internal Medicine | DX: M16.11 Unilateral primary osteoarthritis, right hip (principal); M79.604 Pain in right leg | CPT/HCPCS: 96127; 99212 ==